=== PATIENT | female | born 1935 | race Caucasian/White ===

== ENCOUNTER 2016-06-13 12:56 | Inpatient (IN) ==
[2016-06-13] MEDS ORDERED: 0.9 % Sodium Chloride 1,000 ML IVC ONE (13:24)
--- NOTE | 2016-06-13 13:29 | Emergency Department Note ---
Disposition Clinical Impression: Weakness Leg weakness Qualifiers: Laterality: left Qualified Code(s): M62.81 - Muscle weakness (generalized) CVA (cerebral vascular accident) Qualifiers: CVA mechanism: unspecified Qualified Code(s): I63.9 - Cerebral infarction, unspecified Disposition: Admitted As Inpatient General Adult HPI - General Chief complaint: ED Headache Stated complaint: headache Time Seen by Provider: 06/13/16 12:57 Source: patient, family, EMS Mode of arrival: EMS Limitations: no limitations Nursing Notes Reviewed: Yes Vital Signs Reviewed: Yes - History of Present Illness HPI Narrative: 81-year-old female history of CHF, hypertension, hyperlipidemia presents for evaluation of headache. Patient presents for care of the family. Family states the patient was recently seen and had a diagnosis of a TIA. Family was not aware of any deficits that occurred from the prior TIA. States that the patient has been having worsening weakness in the bilateral lower extremities with left worse than right. Since the patient has not had any recent falls.The patient has been leaning more towards the right. Family denies any slurred speech or dysarthria. Does note a right facial droop. Patient's family became concerned this morning when patient started to complain of a headache 2 hours prior to arrival. Patient currently denies headache. Family also notes that the patient has had chronic problems with her eyes but currently denies any diplopia. No nausea or vomiting. No fevers. Family states that the patient has not taken taking her medications as directed. Pain Scale: 3 - Related Data Home Medications Medication Instructions Recorded Confirmed Calcium/Magnesium/Vit D3 [Calcium 1 tab PO DAILY 02/02/16 06/13/16 500 mg Tablet] Cholecalciferol (D-3) [Vitamin D] 1,000 unit PO DAILY 02/02/16 06/13/16 Ezetimibe [Zetia] 10 mg PO DAILY 02/02/16 06/13/16 Furosemide [Lasix] 40 mg PO BID 02/02/16 06/13/16 Levothyroxine [Synthroid] 50 mcg PO DAILY 02/02/16 06/13/16 Nitroglycerin [Nitrostat] 0.4 mg SL Q5M PRN 02/02/16 06/13/16 Potassium Chloride [K-Tab ER] 10 meq PO BID 02/02/16 06/13/16 Acetaminophen [Tylenol] 325 mg PO BID PRN 06/13/16 06/13/16 Amlodipine [Norvasc] 5 mg PO DAILY 06/13/16 06/13/16 Ibuprofen [Advil] 200 mg PO BID PRN 06/13/16 06/13/16 Allergies Allergy/AdvReac Type Severity Reaction Status Date / Time atorvastatin [From Lipitor] AdvReac Vomiting Verified 03/18/16 03:11 codeine AdvReac Vomiting Verified 03/18/16 03:11 haloperidol [From Haldol] AdvReac Hallucinati Verified 06/13/16 16:48 ng indomethacin AdvReac Gastrointestinal Verified 03/18/16 03:11 Upset lisinopril [From Prinivil] AdvReac Dizziness Verified 03/18/16 03:11 simvastatin [From Zocor] AdvReac Vomiting Verified 03/18/16 03:11 tramadol AdvReac See Verified 03/18/16 03:11 Comments All systems ED: reviewed and negative except as stated. Constitutional: Reports: as per HPI. Denies: fever Eyes: Reports: as per HPI ENT ED: Reports: as per HPI Cardiovascular: Reports: as per HPI. Denies: chest pain, palpitations Respiratory: Reports: as per HPI. Denies: cough Gastrointestinal: Reports: as per HPI. Denies: abdominal pain, nausea, vomiting Genitourinary: Reports: as per HPI Musculoskeletal: Reports: as per HPI Integumentary: Reports: as per HPI Neurological: Reports: as per HPI, headache, weakness Psychiatric: Reports: as per HPI Endocrine: Reports: as per HPI Past Medical History - Past Medical History Medical history: Reports: CHF, hyperlipidemia, hypertension, myocardial infarction, TIA Surgical history: Reports: appendectomy Psychiatric history: Reports: no psych history - Social History Smoking Status: Never smoker Smokeless Tobacco Status: No Alcohol use: Reports: none Drug use: Reports: none Physical Exam - General Limitations: no limitations, other (Patient is leaning to the right side) General appearance: alert - Head Head exam: atraumatic, normocephalic, normal inspection - Eye Eye exam: Present: normal appearance, EOMI, miosis - ENT ENT exam: normal exam, mucous membranes dry - Neck Neck exam: Present: normal inspection, trachea midline - Chest Chest inspection: Present: normal inspection, symmetric chest wall rise - Respiratory Respiratory exam: Present: other (Poor inspiratory effort). Absent: respiratory distress - Cardiovascular Cardiovascular exam: Present: regular rate, normal rhythm - Abdominal Exam Abdominal exam: Present: soft, Non-Tender - Extremities Exam Extremities exam: Present: normal inspection, tenderness, pedal edema (1+ left lower extremity swelling) - Expanded Upper Extremity Exam Shoulder exam: Present: normal inspection Arm exam: Present: normal inspection Elbow exam: Present: normal inspection Forearm/Wrist exam: Present: normal inspection Hand exam: Present: normal inspection Vascular exam: Normal: capillary refill - Expanded Lower Extremity Exam Hip/Pelvis exam: Present: normal inspection Upper leg exam: Present: normal inspection Knee exam: Present: normal inspection Lower leg exam: Present: normal inspection, tenderness Ankle exam: Present: normal inspection, tenderness, swelling (Left leg and swelling). Absent: ecchymosis, deformity, crepitus Neurovascular/Tendon exam: Present: normal capillary refill - Neurological Exam Neurological exam: Present: alert, oriented X3, CN II-XII intact - Expanded Neurological Exam Patient oriented to: Present: person, place, time Speech: Present: fluid speech Cranial nerves: EOM function (II, III, IV, ): Normal, facial sensation (V): Abnormal Left, facial palsy (VII): Normal, spinal accessory function (XI): Normal, tongue deviation (XII): Normal Cerebellar function: finger to nose: Normal Motor strength - LUE: 3/5 Motor strength - RUE: 4/5 Motor strength - LLE: 5/5 Motor strength - RLE: 5/5 Coma Scale Eye Opening: Spontaneous Coma Scale Motor Response: Obeys Commands Coma Scale Verbal Response: Oriented Coma Scale Total: 15 - Skin Skin exam: Present: warm, dry, intact, normal color Course Course Narrative: Patient seen and examined. Patient is in no acute distress. Patient denies need for any pain medication. States her headache has resolved. Patient does have a history of recent TIA. Patient legs due to be somewhat asymmetric and strength. Family states that the patient had a recent Doppler of the left leg performed due to swelling which was read as negative. Patient will get CT of the head, chest x-ray, EKG, labs urine and reevaluation. Patient does have drift of the left leg and would have an NIH score of 8. - Reevaluation(s) Reevaluation #1: Patient seen and examined. Updated family as well as patient on plan of care. Family reports that the patient has been relatively functional until the past couple days. Patient does live at home with assistance from family. Patient was able to ambulate with the assistance of a walker up until recently. No recent falls. Patient states she cannot walk currently. Past history was reviewed. Patient did have a venous Doppler of the left leg obtained on June 07 which was read as unremarkable with no signs of DVT. Time: 15:59 Vital Signs Temperature 98.2 F 06/13/16 12:58 Pulse Rate 68 06/13/16 12:58 Respiratory Rate 18 06/13/16 12:58 Blood Pressure 155/65 06/13/16 12:58 O2 Sat by Pulse Oximetry 99 06/13/16 12:58 Temperature 98.2 F 06/13/16 18:15 Pulse Rate 54 06/13/16 17:13 Respiratory Rate 18 06/13/16 18:15 Blood Pressure 139/52 06/13/16 18:15 O2 Sat by Pulse Oximetry 97 06/13/16 17:13 Oxygen Delivery Oxygen Delivery Room Air Medical Decision Making - MDM Narrative Medical decision making narrative: 81-year-old female presents for evaluation of bilateral lower weakness with left worse than right. Patient was relatively functional up until a couple days ago. Patient again daily with assistance of a walker. Daughter at bedside denies any recent falls. Daughter does note that patient has had some leaning to the right side as well as worsening leg weakness. Daughter states that the patient does have a history of TIA. Patient's workup does not reveal any acute evidence with CT of the head. Patient's lab work unremarkable. Patient's urine also shows no signs of infection. Daughter is concerned the patient cannot care for herself. Patient possibly had a CVA with without a defined last known well. Patient was given Tylenol as well as aspirin. Patient will be admitted to the hospitalist service for further evaluation. It is difficult to elucidate whether the patient's lower leg weakness is related to musculoskeletal or central pathology. Patient's NIH score 8 with left lower leg drifting to the bed AND right sided facial sensation decreased and tracking with eye. Patient would likely benefit from neurologic evaluation. - Lab Data Lab results reviewed: Yes I reviewed the patient's lab results. Result diagrams: 06/13/16 14:11 06/13/16 14:11 Lab Results 06/13/16 06/13/16 06/13/16 Range/Units 13:01 14:11 14:11 WBC 10.2 (4.3-11.1) K/mcL RBC 4.40 (3.82-4.97) M/mcL Hgb 12.0 (11.5-15.4) g/dL Hct 36.8 (35.3-44.9) % MCV 83.6 (83.0-100.0) fL MCH 27.3 L (28.0-33.3) pg MCHC 32.6 (31.6-35.5) g/dL RDW 14.9 H (11.5-14.5) % Plt Count 320 (140-400) K/mcL MPV 10.2 (9.4-12.4) fL Immature Gran % 0.3 (0-4) % Seg Neutrophils % 56.9 % Lymphocytes % 30.3 % Monocytes % 10.6 % Eosinophils % 1.2 % Basophils % 0.7 % Neutrophils # 5.8 (1.6-8.9) K/mcL Lymphocytes # 3.1 (0.6-4.6) K/mcL Monocytes # 1.1 (0.0-1.3) K/mcL Eosinophils # 0.1 (0.0-0.6) K/mcL Basophils # 0.1 (0.0-0.2) K/mcL Sodium 140 (136-145) mEq/L Potassium 3.5 (3.5-4.5) mEq/L Chloride 110 H (98-109) mEq/L Carbon Dioxide 22 (19-29) mEq/L BUN 13 (7-20) mg/dL Creatinine 0.70 (0.57-1.11) mg/dL Est GFR ( Amer) > 60 (> 60) Est GFR (Non-Af Amer) > 60 (> 60) BUN/Creatinine Ratio 19 (6-26) Glucose 196 H (70-99) mg/dL POC Glucose 191 H (58-89) Calculated Osmolality 296 (280-300) Calcium 9.7 (8.6-10.8) mg/dL Total Bilirubin 0.4 (0.2-1.2) mg/dL AST 9 (5-34) Units/L ALT 8 (0-55) Units/L Alkaline Phosphatase 107 (38-126) Units/L Troponin I (0-0.03) ng/mL Serum Total Protein 6.6 (6.0-8.3) g/dL Albumin 3.0 L (3.5-5.0) g/dL Globulin 3.6 H (2.4-3.5) g/dL Albumin/Globulin Ratio 0.8 L (1.1-2.2) Urine Color (Yellow) Urine Clarity (Clear) Urine pH (5.0-8.0) pH Units Ur Specific [place] (1.010-1.025) Urine Protein (Neg-Trace) mg/dL Urine Glucose (UA) (Normal) mg/dL Urine Ketones (Negative) mg/dL Urine Blood (Negative) Urine Nitrite (Negative) Urine Bilirubin (Negative) Urine Urobilinogen (Normal) mg/dL Ur Leukocyte Esterase (Negative) Urine Microscopic RBC (0-3) per hpf Urine Microscopic WBC (0-3) per hpf Ur Squamous Epith Cells (None-Few) per lpf Calcium Oxalate Crystal Urine Bacteria (None-Few) per hpf Hyaline Casts (None-Few) per lpf Ur Culture Indicated? (NO) 06/13/16 06/13/16 Range/Units 14:11 15:16 WBC (4.3-11.1) K/mcL RBC (3.82-4.97) M/mcL Hgb (11.5-15.4) g/dL Hct (35.3-44.9) % MCV (83.0-100.0) fL MCH (28.0-33.3) pg MCHC (31.6-35.5) g/dL RDW (11.5-14.5) % Plt Count (140-400) K/mcL MPV (9.4-12.4) fL Immature Gran % (0-4) % Seg Neutrophils % % Lymphocytes % % Monocytes % % Eosinophils % % Basophils % % Neutrophils # (1.6-8.9) K/mcL Lymphocytes # (0.6-4.6) K/mcL Monocytes # (0.0-1.3) K/mcL Eosinophils # (0.0-0.6) K/mcL Basophils # (0.0-0.2) K/mcL Sodium (136-145) mEq/L Potassium (3.5-4.5) mEq/L Chloride (98-109) mEq/L Carbon Dioxide (19-29) mEq/L BUN (7-20) mg/dL Creatinine (0.57-1.11) mg/dL Est GFR ( Amer) (> 60) Est GFR (Non-Af Amer) (> 60) BUN/Creatinine Ratio (6-26) Glucose (70-99) mg/dL POC Glucose (58-89) Calculated Osmolality (280-300) Calcium (8.6-10.8) mg/dL Total Bilirubin (0.2-1.2) mg/dL AST (5-34) Units/L ALT (0-55) Units/L Alkaline Phosphatase (38-126) Units/L Troponin I 0.01 (0-0.03) ng/mL Serum Total Protein (6.0-8.3) g/dL Albumin (3.5-5.0) g/dL Globulin (2.4-3.5) g/dL Albumin/Globulin Ratio (1.1-2.2) Urine Color Yellow (Yellow) Urine Clarity Clear (Clear) Urine pH 6.0 (5.0-8.0) pH Units Ur Specific [place] 1.024 (1.010-1.025) Urine Protein Negative (Neg-Trace) mg/dL Urine Glucose (UA) Normal (Normal) mg/dL Urine Ketones Negative (Negative) mg/dL Urine Blood Negative (Negative) Urine Nitrite Negative (Negative) Urine Bilirubin Small H (Negative) Urine Urobilinogen Normal (Normal) mg/dL Ur Leukocyte Esterase Moderate H (Negative) Urine Microscopic RBC 0-3 (0-3) per hpf Urine Microscopic WBC 5-15 H (0-3) per hpf Ur Squamous Epith Cells Many H (None-Few) per lpf Calcium Oxalate Crystal Present Urine Bacteria Few (None-Few) per hpf Hyaline Casts None Seen (None-Few) per lpf Ur Culture Indicated? YES A (NO) - Radiology Data Radiology results reviewed: Yes I reviewed the patient's radiology results. Chest X-Ray 06/13/16 13:24 IMPRESSION: No acute process. D/ / Amador Tillman MD / Amador Tillman MD Interpreting Provider: Amador Tillman MD Head CT 06/13/16 13:25 IMPRESSION: No acute intracranial abnormality. D/ / Tuan Gilbert MD / Tuan Gilbert MD Interpreting Provider: Tuan Gilbert MD - EKG Data EKG #1 EKG shows normal: sinus rhythm Rate: normal Rhythm: NSR [place]/QRS: normal Interpretation: no acute changes, unchanged when compared to prior tracing (date ) (05/27/16), nonspecific ST-T wave changes S.B.A.R. - S.B.A.R. Situation: Demographics, MOA Background: Presenting Complaint Assessment: Vital Signs, Course and respsone to treatment, Patient/Family Expectation, Pertinant Lab Results Recommendation: Barrier(s) to disposition, Recommendation based on pending studies, treatments, or consults S.B.A.R. Report Given to: Dr. Rodarte [email or web address] Repor Time: 16:46
[2016-06-13 14:22] LABS: Basophils # 0.1 K/mcL (0.0-0.2); Basophils % 0.7 %; Eosinophils # 0.1 K/mcL (0.0-0.6); Eosinophils % 1.2 %; Hematocrit 36.8 % (35.3-44.9); Immature Granulocytes % 0.3 % (0-4); Lymphocytes # 3.1 K/mcL (0.6-4.6); Lymphocytes % 30.3 %; Mean Corpuscular HGB Conc 32.6 g/dL (31.6-35.5); Mean Corpuscular Hemoglobin 27.3 pg (28.0-33.3); Mean Corpuscular Volume 83.6 fL (83.0-100.0); Mean Platelet Volume 10.2 fL (9.4-12.4); Monocytes # 1.1 K/mcL (0.0-1.3); Monocytes % 10.6 %; Neutrophils # 5.8 K/mcL (1.6-8.9); Platelet Count 320 K/mcL (140-400); Red Cell Distribution Width 14.9 % (11.5-14.5); Segmented Neutrophils % 56.9 %
[2016-06-13 14:30] LABS: Alanine Aminotransferase 8 Units/L (0-55); Albumin/Globulin Ratio 0.8 (1.1-2.2); Alkaline Phosphatase 107 Units/L (38-126); Aspartate Amino Transferase 9 Units/L (5-34); BUN/Creatinine Ratio 19 (6-26); Bilirubin,Total 0.4 mg/dL (0.2-1.2); Blood Urea Nitrogen 13 mg/dL (7-20); Calcium 9.7 mg/dL (8.6-10.8); Carbon Dioxide 22 mEq/L (19-29); Chloride 110 mEq/L (98-109); Globulin 3.6 g/dL (2.4-3.5); Glucose 196 mg/dL (70-99); Osmolality,Calculated 296 (280-300); Potassium 3.5 mEq/L (3.5-4.5); Sodium 140 mEq/L (136-145); Total Protein 6.6 g/dL (6.0-8.3); eGFR For African Americans > 60 (> 60); eGFR For Non-African Americans > 60 (> 60)
[2016-06-13] MEDS ORDERED: Acetaminophen 325 MG TABLET PO ONE (15:15)
[2016-06-13 15:27] LABS: Bilirubin,Urine Small (Negative); Blood,Urine Negative (Negative); Clarity,Urine Clear (Clear); Color,Urine Yellow (Yellow); Glucose,Urine (UA) Normal (Normal); Ketones,Urine Negative (Negative); Leukocyte Esterase,Urine Moderate (Negative); Nitrite,Urine Negative (Negative); Protein,Urine Negative (Neg-Trace); Specific Gravity,Urine 1.024 (1.010-1.025); Urobilinogen,Urine Normal (Normal)
[2016-06-13 15:28] LABS: Bacteria,Urine Few per hpf (None-Few); Hyaline Casts,Urine None Seen per lpf (None-Few); RBC,Urine 0-3 per hpf (0-3); Squamous Epithelial Cell,Urine Many per lpf (None-Few)
[2016-06-13 16:00] LABS: Calcium Oxalate Crystals,Urine Present
[2016-06-13] MEDS ORDERED: Aspirin 325 MG TABLET PO ONE (16:42)
--- NOTE | 2016-06-13 18:47 | Emergency Department Note ---
Disposition Clinical Impression: Weakness Leg weakness Qualifiers: Laterality: left Qualified Code(s): M62.81 - Muscle weakness (generalized) CVA (cerebral vascular accident) Qualifiers: CVA mechanism: unspecified Qualified Code(s): I63.9 - Cerebral infarction, unspecified Disposition: Admitted As Inpatient General Adult HPI - General Chief complaint: ED Headache Stated complaint: headache Time Seen by Provider: 06/13/16 12:57 Source: patient, family, EMS Mode of arrival: EMS Limitations: no limitations, other (Patient is leaning to the right side) - History of Present Illness Pain Scale: 3 - Related Data Home Medications Medication Instructions Recorded Confirmed Calcium/Magnesium/Vit D3 [Calcium 1 tab PO DAILY 02/02/16 06/13/16 500 mg Tablet] Cholecalciferol (D-3) [Vitamin D] 1,000 unit PO DAILY 02/02/16 06/13/16 Ezetimibe [Zetia] 10 mg PO DAILY 02/02/16 06/13/16 Furosemide [Lasix] 40 mg PO BID 02/02/16 06/13/16 Levothyroxine [Synthroid] 50 mcg PO DAILY 02/02/16 06/13/16 Nitroglycerin [Nitrostat] 0.4 mg SL Q5M PRN 02/02/16 06/13/16 Potassium Chloride [K-Tab ER] 10 meq PO BID 02/02/16 06/13/16 Acetaminophen [Tylenol] 325 mg PO BID PRN 06/13/16 06/13/16 Amlodipine [Norvasc] 5 mg PO DAILY 06/13/16 06/13/16 Ibuprofen [Advil] 200 mg PO BID PRN 06/13/16 06/13/16 Allergies Allergy/AdvReac Type Severity Reaction Status Date / Time atorvastatin [From Lipitor] AdvReac Vomiting Verified 03/18/16 03:11 codeine AdvReac Vomiting Verified 03/18/16 03:11 haloperidol [From Haldol] AdvReac Hallucinati Verified 06/13/16 16:48 ng indomethacin AdvReac Gastrointestinal Verified 03/18/16 03:11 Upset lisinopril [From Prinivil] AdvReac Dizziness Verified 03/18/16 03:11 simvastatin [From Zocor] AdvReac Vomiting Verified 03/18/16 03:11 tramadol AdvReac See Verified 03/18/16 03:11 Comments Constitutional: Reports: as per HPI. Denies: fever Eyes: Reports: as per HPI ENT ED: Reports: as per HPI Cardiovascular: Reports: as per HPI. Denies: chest pain, palpitations Respiratory: Reports: as per HPI. Denies: cough Gastrointestinal: Reports: as per HPI. Denies: abdominal pain, nausea, vomiting Genitourinary: Reports: as per HPI Musculoskeletal: Reports: as per HPI Integumentary: Reports: as per HPI Neurological: Reports: as per HPI, headache, weakness Psychiatric: Reports: as per HPI Endocrine: Reports: as per HPI Past Medical History - Past Medical History Medical history: Reports: CHF, hyperlipidemia, hypertension, myocardial infarction, TIA Surgical history: Reports: appendectomy Psychiatric history: Reports: no psych history - Social History Smoking Status: Never smoker Smokeless Tobacco Status: No Alcohol use: Reports: none Drug use: Reports: none Physical Exam - General Limitations: no limitations, other (Patient is leaning to the right side) General appearance: alert Course - Reevaluation(s) Reevaluation #1: I saw the patient with the resident, Dr. Brambila. Patient was brought in because she is weak at home and unable to ambulate. In talking to her daughter who lives out of town but has been back and forth visiting this patient. She says last week the patient was able to walk up a ramp at the doctor's office without any problem. This daughter came back 2 days ago and found the patient unable to get up and ambulate at all even in her own house. I find the patient to be a little bit confused. Workup was not indicating a clear etiology but the patient is not able to ambulate at home and therefore is not safe for discharge. We will admit her to the hospital for further evaluation. Time: 18:43 Vital Signs Temperature 98.2 F 06/13/16 12:58 Pulse Rate 68 06/13/16 12:58 Respiratory Rate 18 06/13/16 12:58 Blood Pressure 155/65 06/13/16 12:58 O2 Sat by Pulse Oximetry 99 06/13/16 12:58 Temperature 98.2 F 06/13/16 18:15 Pulse Rate 54 06/13/16 17:13 Respiratory Rate 18 06/13/16 18:15 Blood Pressure 139/52 06/13/16 18:15 O2 Sat by Pulse Oximetry 97 06/13/16 17:13 Oxygen Delivery Oxygen Delivery Room Air Medical Decision Making - Lab Data Result diagrams: 06/13/16 14:11 06/13/16 14:11 Lab Results 06/13/16 06/13/16 06/13/16 Range/Units 13:01 14:11 14:11 WBC 10.2 (4.3-11.1) K/mcL RBC 4.40 (3.82-4.97) M/mcL Hgb 12.0 (11.5-15.4) g/dL Hct 36.8 (35.3-44.9) % MCV 83.6 (83.0-100.0) fL MCH 27.3 L (28.0-33.3) pg MCHC 32.6 (31.6-35.5) g/dL RDW 14.9 H (11.5-14.5) % Plt Count 320 (140-400) K/mcL MPV 10.2 (9.4-12.4) fL Immature Gran % 0.3 (0-4) % Seg Neutrophils % 56.9 % Lymphocytes % 30.3 % Monocytes % 10.6 % Eosinophils % 1.2 % Basophils % 0.7 % Neutrophils # 5.8 (1.6-8.9) K/mcL Lymphocytes # 3.1 (0.6-4.6) K/mcL Monocytes # 1.1 (0.0-1.3) K/mcL Eosinophils # 0.1 (0.0-0.6) K/mcL Basophils # 0.1 (0.0-0.2) K/mcL Sodium 140 (136-145) mEq/L Potassium 3.5 (3.5-4.5) mEq/L Chloride 110 H (98-109) mEq/L Carbon Dioxide 22 (19-29) mEq/L BUN 13 (7-20) mg/dL Creatinine 0.70 (0.57-1.11) mg/dL Est GFR ( Amer) > 60 (> 60) Est GFR (Non-Af Amer) > 60 (> 60) BUN/Creatinine Ratio 19 (6-26) Glucose 196 H (70-99) mg/dL POC Glucose 191 H (58-89) Calculated Osmolality 296 (280-300) Calcium 9.7 (8.6-10.8) mg/dL Total Bilirubin 0.4 (0.2-1.2) mg/dL AST 9 (5-34) Units/L ALT 8 (0-55) Units/L Alkaline Phosphatase 107 (38-126) Units/L Troponin I (0-0.03) ng/mL Serum Total Protein 6.6 (6.0-8.3) g/dL Albumin 3.0 L (3.5-5.0) g/dL Globulin 3.6 H (2.4-3.5) g/dL Albumin/Globulin Ratio 0.8 L (1.1-2.2) Urine Color (Yellow) Urine Clarity (Clear) Urine pH (5.0-8.0) pH Units Ur Specific [place] (1.010-1.025) Urine Protein (Neg-Trace) mg/dL Urine Glucose (UA) (Normal) mg/dL Urine Ketones (Negative) mg/dL Urine Blood (Negative) Urine Nitrite (Negative) Urine Bilirubin (Negative) Urine Urobilinogen (Normal) mg/dL Ur Leukocyte Esterase (Negative) Urine Microscopic RBC (0-3) per hpf Urine Microscopic WBC (0-3) per hpf Ur Squamous Epith Cells (None-Few) per lpf Calcium Oxalate Crystal Urine Bacteria (None-Few) per hpf Hyaline Casts (None-Few) per lpf Ur Culture Indicated? (NO) 06/13/16 06/13/16 Range/Units 14:11 15:16 WBC (4.3-11.1) K/mcL RBC (3.82-4.97) M/mcL Hgb (11.5-15.4) g/dL Hct (35.3-44.9) % MCV (83.0-100.0) fL MCH (28.0-33.3) pg MCHC (31.6-35.5) g/dL RDW (11.5-14.5) % Plt Count (140-400) K/mcL MPV (9.4-12.4) fL Immature Gran % (0-4) % Seg Neutrophils % % Lymphocytes % % Monocytes % % Eosinophils % % Basophils % % Neutrophils # (1.6-8.9) K/mcL Lymphocytes # (0.6-4.6) K/mcL Monocytes # (0.0-1.3) K/mcL Eosinophils # (0.0-0.6) K/mcL Basophils # (0.0-0.2) K/mcL Sodium (136-145) mEq/L Potassium (3.5-4.5) mEq/L Chloride (98-109) mEq/L Carbon Dioxide (19-29) mEq/L BUN (7-20) mg/dL Creatinine (0.57-1.11) mg/dL Est GFR ( Amer) (> 60) Est GFR (Non-Af Amer) (> 60) BUN/Creatinine Ratio (6-26) Glucose (70-99) mg/dL POC Glucose (58-89) Calculated Osmolality (280-300) Calcium (8.6-10.8) mg/dL Total Bilirubin (0.2-1.2) mg/dL AST (5-34) Units/L ALT (0-55) Units/L Alkaline Phosphatase (38-126) Units/L Troponin I 0.01 (0-0.03) ng/mL Serum Total Protein (6.0-8.3) g/dL Albumin (3.5-5.0) g/dL Globulin (2.4-3.5) g/dL Albumin/Globulin Ratio (1.1-2.2) Urine Color Yellow (Yellow) Urine Clarity Clear (Clear) Urine pH 6.0 (5.0-8.0) pH Units Ur Specific [place] 1.024 (1.010-1.025) Urine Protein Negative (Neg-Trace) mg/dL Urine Glucose (UA) Normal (Normal) mg/dL Urine Ketones Negative (Negative) mg/dL Urine Blood Negative (Negative) Urine Nitrite Negative (Negative) Urine Bilirubin Small H (Negative) Urine Urobilinogen Normal (Normal) mg/dL Ur Leukocyte Esterase Moderate H (Negative) Urine Microscopic RBC 0-3 (0-3) per hpf Urine Microscopic WBC 5-15 H (0-3) per hpf Ur Squamous Epith Cells Many H (None-Few) per lpf Calcium Oxalate Crystal Present Urine Bacteria Few (None-Few) per hpf Hyaline Casts None Seen (None-Few) per lpf Ur Culture Indicated? YES A (NO) Attestation Statement - Attestation Attestation: I, Dr. Llanes, examined this patient states to face and my medical decision- making was reviewed with Dr. Brambila, Resident Physician. I agree with the documented findings, disposition and treatment plan as described except to the extent set forth below. Please see my progress notes for details.
[2016-06-13] MEDS ORDERED: Naloxone 0.4 MG/ML INJ IVP PRN (19:43)
[2016-06-13] MEDS ORDERED: Nitroglycerin 0.4 MG TAB.SUBL SL PRN (19:47)
[2016-06-13] MEDS ORDERED: Ibuprofen 400 MG TABLET PO PRN (19:50)
[2016-06-13] MEDS ORDERED: Acetaminophen 325 MG TABLET PO PRN (19:50)
--- NOTE | 2016-06-13 20:16 | Internal Med History&Physical ---
Date of Encounter: 06/13/16 Time of Encounter: 20:05 Assessment and Plan (1) CVA (cerebral vascular accident) Current visit: Yes Status: Acute Patient with right sided facial droop and reports left sided weakness, leaning right. Unclear time of onset. Patient's daughter reports she could walk with her walker on Friday, but now needs multiple person assist to transfer to bathroom. CT head negative. Aspirin 325mg given by ED. MRI of head/brain without contrast continuous laboratory monitor, continuous pulse oximetry echocardiogram bilateral carotid duplex consult neurology speech consult, PT/OT consult, SW consult Qualifiers: CVA mechanism: unspecified Qualified Code(s): I63.9 - Cerebral infarction, unspecified (2) Weakness Current visit: Yes Status: Acute Patient with difficulty walking, leaning right. On exam has equal strength bilaterally. Recent history of left knee replacement (February). She also broke her left wrist and arm one year ago and reports weakness in that arm ever since. Concern for CVA (see above) PT/OT evaluation (3) Hypertension Current visit: No Status: Acute Continue home dose of amlodipine and lasix Qualifiers: Hypertension type: essential hypertension Qualified Code(s): I10 - Essential (primary) hypertension (4) Hyperlipidemia Current visit: Yes Status: Acute fasting lipid panel with AM labs. continue home dose zetia reports allergy to atorvastatin, but consider other statin trial Qualifiers: Hyperlipidemia type: pure hypercholesterolemia Qualified Code(s): E78.00 - Pure hypercholesterolemia, unspecified; E78.0 - Pure hypercholesterolemia (5) DVT prophylaxis Current visit: Yes Status: Acute up to chair with assistance anti-embolic stockings heparin 5,000u SQ BID Internal Medicine - H&P: HPI Chief complaint: weakness Admitted From: Home Plans for Post Hospital Care: Home History of present illness: Ms. Bee is a 81 year old female with history of htn, dementia, hypothyroid, who presented to the ED for left sided weakness and right sided facial droop noted by her daughter. Her daughter reports that last Friday, the patient was able to walk with her walker up a ramp, but when she came to see her today, the patient was unable to walk with her walker, was leaning right and had a right facial droop. Unknown when onset of symptoms occurred. No alteration in speech reported by daughter. Patient denies any trouble with swallowing, drooling or dribbling. The patient was also complaining of a headache earlier today. She denies any chest pain, pressure, palpitations, SOB. She denies any fever, chills, night sweats, body aches. She denies dizziness or lightheadedness or any numbness or tingling. Her work up in the ED included a Head CT which was negative for any acute abnormality. On exam, she leans to the right in bed, has a right facial droop and difficulty with eye tracking. She is able to stick out her tongue and puff out her cheeks and denies any trouble with swallowing, eating or drinking. Her daughter also states she has not noticed the patient coughing or having any trouble with eating or drinking. Past Med Surg Social Fam HX - Past Medical History Medical history: CHF, dementia, hyperlipidemia, hypertension, myocardial infarction, thyroid disease, TIA Psychiatric history: no psych history - Past Surgical History Surgical History: appendectomy, knee replacement (left) - Social History Smoking Status: Never smoker Smokeless Tobacco Status: No Alcohol use: none Drug use: none - Family History Mother Hx Family Cardiac Disorders: Yes Internal Medicine - H&P: Meds Calcium/Magnesium/Vit D3 [Calcium 500 mg Tablet] 1 tab PO DAILY 02/02/16 [ History] Cholecalciferol (D-3) [Vitamin D] 1,000 unit PO DAILY 02/02/16 [History] Ezetimibe [Zetia] 10 mg PO DAILY 02/02/16 [History] Furosemide [Lasix] 40 mg PO BID 02/02/16 [History] Levothyroxine [Synthroid] 50 mcg PO DAILY 02/02/16 [History] Nitroglycerin [Nitrostat] 0.4 mg SL Q5M PRN 02/02/16 [History] Potassium Chloride [K-Tab ER] 10 meq PO BID 02/02/16 [History] Acetaminophen [Tylenol] 325 mg PO BID PRN 06/13/16 [History] Amlodipine [Norvasc] 5 mg PO DAILY 06/13/16 [History] Ibuprofen [Advil] 200 mg PO BID PRN 06/13/16 [History] Allergies atorvastatin [From Lipitor] Adverse Reaction (Verified 03/18/16 03:11) Vomiting codeine Adverse Reaction (Verified 03/18/16 03:11) Vomiting haloperidol [From Haldol] Adverse Reaction (Verified 06/13/16 16:48) Hallucinating indomethacin Adverse Reaction (Verified 03/18/16 03:11) Gastrointestinal Upset lisinopril [From Prinivil] Adverse Reaction (Verified 03/18/16 03:11) Dizziness simvastatin [From Zocor] Adverse Reaction (Verified 03/18/16 03:11) Vomiting tramadol Adverse Reaction (Verified 03/18/16 03:11) See Comments UNKNOWN PER DAUGHTER All Systems PM: A 10-system review of systems was performed and is negative for pertinent findings except as documented above in the HPI. - Constitutional Constitutional: no chills, no fever(s), no night sweats - EENT Eyes: blurry vision (not new), no change in vision, no discharge, no pain, no photophobia Ears: no ear discharge, no ear pain, no tinnitus Nose, mouth and throat: no dysphagia, no nasal discharge, no neck pain, no sore throat - Cardiovascular Cardiovascular ROS IM: no chest pain, no diaphoresis, no dyspnea, no lightheadedness, no palpitations, no syncope - Respiratory Respiratory: no cough, no dyspnea, no wheezing, no excessive phlegm production - Gastrointestinal Gastrointestinal: no abdominal pain, no diarrhea, no hematemesis, no hematochezia, no melena, no nausea, no vomiting - Musculoskeletal Musculoskeletal ROS IM: joint swelling (left ankle and knee), no numbness, no tingling - Neurological Neurological ROS: focal weakness (left side), tremor(s) (chronic), weakness, no confusion, no convulsions, no numbness, no tingling - Constitutional Vitals: Temp Pulse Resp BP Pulse Ox 97.9 F 57 15 148/76 95 06/13/16 20:02 06/13/16 20:02 06/13/16 20:02 06/13/16 20:02 06/13/16 20:02 General appearance: Present: A&O X 3, no acute distress - Head Head exam: Present: atraumatic, normocephalic - Eye Eye exam: Present: PERRL, conjuntiva pink, sclera anicteric - Neck Neck exam general surgery: Present: supple, trachea midline. Absent: lymphadenopathy - Respiratory Respiratory exam: Present: CTAB. Absent: accessory muscle use, rales, rhonchi, wheezes - Cardiovascular Cardiovascular exam: Present: RRR, +S1, +S2. Absent: diastolic murmur, gallop, rubs, systolic murmur - GI/Abdominal GI/Abdominal exam: Present: normal bowel sounds, soft, no peritoneal signs. Absent: distended, tenderness - Extremities Exam Extremities exam: Present: joint swelling (left ankle and left knee), pedal edema (left greater than right), warm, radial pulses palpable and symetrical. Absent: calf tenderness, cyanotic - Neurological Exam Neurological exam: Present: alert, CN II-XII intact, oriented X3, facial droop. Absent: pronater drift, speech deficit - Expanded Neurological Exam Cranial Nerves: EOM's intact PM: Normal (trouble tracking), tongue deviation PM : Normal Upper motor neuron: pronator drift: Normal Neuro motor strength exam: LUE: 4, RUE: 4, LLE: 4, RLE: 4 - Skin Skin exam: Present: dry, intact Internal Med - H&P Results - Labs CBC & Chem 7: 06/13/16 14:11 06/13/16 14:11
[2016-06-13] MEDS: Furosemide 40 MG TABLET PO SCH (22:31)
[2016-06-14] MEDS: *HR* Heparin 5,000 UNIT/ML VIAL SQ SCH ×2 (05:34→18:02)
[2016-06-14 06:07] LABS: Basophils # 0.1 K/mcL (0.0-0.2); Basophils % 0.7 %; Eosinophils # 0.2 K/mcL (0.0-0.6); Eosinophils % 2.3 %; Hematocrit 35.3 % (35.3-44.9); Hemoglobin 11.4 g/dL (11.5-15.4); Immature Granulocytes % 0.2 % (0-4); Lymphocytes # 3.9 K/mcL (0.6-4.6); Lymphocytes % 42.9 %; Mean Corpuscular HGB Conc 32.3 g/dL (31.6-35.5); Mean Corpuscular Hemoglobin 27.1 pg (28.0-33.3); Mean Corpuscular Volume 83.8 fL (83.0-100.0); Mean Platelet Volume 10.4 fL (9.4-12.4); Monocytes % 10.5 %; Platelet Count 311 K/mcL (140-400); Red Blood Count 4.21 M/mcL (3.82-4.97); Red Cell Distribution Width 14.9 % (11.5-14.5); Segmented Neutrophils % 43.4 %
[2016-06-14 06:20] LABS: BUN/Creatinine Ratio 16 (6-26); Blood Urea Nitrogen 10 mg/dL (7-20); Calcium 9.4 mg/dL (8.6-10.8); Carbon Dioxide 24 mEq/L (19-29); Chloride 112 mEq/L (98-109); Chol/HDL Ratio 4.3 (0-4.9); Cholesterol 185 mg/dL (< 200); Glucose 136 mg/dL (70-99); HDL Cholesterol 43 mg/dL (40-59); LDL Cholesterol,Calculated 121 mg/dL (0-99); Osmolality,Calculated 295 (280-300); Potassium 3.3 mEq/L (3.5-4.5); Sodium 142 mEq/L (136-145); Triglycerides 107 mg/dL (< 150); eGFR For African Americans > 60 (> 60); eGFR For Non-African Americans > 60 (> 60)
[2016-06-14] MEDS: Furosemide 40 MG TABLET PO SCH (08:29)
[2016-06-14] MEDS: Aspirin 325 MG TABLET PO SCH (08:30)
[2016-06-14] MEDS: amLODIPine 5 MG TABLET PO SCH (08:31)
[2016-06-14] MEDS: CALCIUM PO SCH (08:37)
[2016-06-14] MEDS: (Ezetimibe [Zetia] 10 MG) PO SCH (08:37)
[2016-06-14] MEDS: VIT D3 PO SCH (08:37)
[2016-06-14] MEDS: MAGNESIUM PO SCH (08:37)
--- NOTE | 2016-06-14 08:58 | Neurology - Consult Note ---
Date of Encounter: 06/14/16 Time of Encounter: 08:55 Assessment and Plan (1) Weakness Current Visit: Yes Status: Acute Symptoms rapidly improved and her symptoms do not appear to be consistent with new CVA and negative MRI of brain confirmed absence of acute intracranial abnormality. Symptoms of weakness is likely generalized with some focality due to previous orthopedic conditions. This could certainly be complicated by medical conditions at this age group. Please continue medical and supportive care and neurologically, no other testing will be recommended. Will sign off at this time. Please call if any questions History of Present Illness Chief complaint: left sided weakess and inability to walk HPI: Ms. Bee is a 81 year old female with PMH significant for left radial fracture, remote history of right hip fracture and s/p left knee surgery who developed increasing weakness, difficulty walking and left sided weakness. Patient interviewed in the presence of her daughter. Daughter states that the patient usually able to walk with a walker. On last Friday, however, daughter noticed that the patient was weakness and tend to lean toward the right side when trying to walk. The weakness and difficulty walking gradually worsened over the last few days. Daughter says that it required few people to hold her up and the patient admits weakness to the left arm and leg. Patient did have left knee surgery, remote right hip surgery and left arm surgery due to fracture. She was examined in the ER yesterday and initial CT of head was negative for acute changes. Today, daughter says that her mother is doing much better and the left sided weakness appears resolved Past Med Surg Social Fam HX - Past Medical History Medical history: CHF, dementia, hyperlipidemia, hypertension, myocardial infarction, thyroid disease, TIA Psychiatric history: no psych history - Past Surgical History Surgical History: appendectomy, knee replacement - Social History Smoking Status: Never smoker Smokeless Tobacco Status: No Alcohol use: none Drug use: none - Family History Mother Age at : 67 Hx Family Cardiac Disorders: Yes (HTN, RI, HLD) Hx Family Respiratory Disorders: Yes Hx Family Cancer: No Hx Family GI Disorders: No Hx Family Genitourinary Disorders: No Hx Family Endocrine Disorder: No Hx Family Musculoskeletal Disorders: No Hx Family Neuromuscular Disorders: No Hx Family Neurologic Disorders: No Hx Family HEENT Disorders: No Hx Family Autoimmune Disorders: No Hx Family Reproductive Disorders: No Hx Family Psychosocial Disorders: No Hx Family Medical Disorders: No Medications and Allergies Calcium/Magnesium/Vit D3 [Calcium 500 mg Tablet] 1 tab PO DAILY 02/02/16 [ History] Cholecalciferol (D-3) [Vitamin D] 1,000 unit PO DAILY 02/02/16 [History] Ezetimibe [Zetia] 10 mg PO DAILY 02/02/16 [History] Furosemide [Lasix] 40 mg PO BID 02/02/16 [History] Levothyroxine [Synthroid] 50 mcg PO DAILY 02/02/16 [History] Nitroglycerin [Nitrostat] 0.4 mg SL Q5M PRN 02/02/16 [History] Potassium Chloride [K-Tab ER] 10 meq PO BID 02/02/16 [History] Acetaminophen [Tylenol] 325 mg PO BID PRN 06/13/16 [History] Amlodipine [Norvasc] 5 mg PO DAILY 06/13/16 [History] Ibuprofen [Advil] 200 mg PO BID PRN 06/13/16 [History] Allergies atorvastatin [From Lipitor] Adverse Reaction (Verified 03/18/16 03:11) Vomiting codeine Adverse Reaction (Verified 03/18/16 03:11) Vomiting haloperidol [From Haldol] Adverse Reaction (Verified 06/13/16 16:48) Hallucinating indomethacin Adverse Reaction (Verified 03/18/16 03:11) Gastrointestinal Upset lisinopril [From Prinivil] Adverse Reaction (Verified 03/18/16 03:11) Dizziness simvastatin [From Zocor] Adverse Reaction (Verified 03/18/16 03:11) Vomiting tramadol Adverse Reaction (Verified 03/18/16 03:11) See Comments UNKNOWN PER DAUGHTER All Systems: A 10-system review of systems was performed and is negative for pertinent findings except as documented above in the HPI. Physical Examination - Vital Signs Vital Signs: Initial Vital Signs Temp Pulse Resp BP Pulse Ox 98.2 F 68 18 155/65 99 06/13/16 12:58 06/13/16 12:58 06/13/16 12:58 06/13/16 12:58 06/13/16 12:58 - Constitutional General appearance: comfortable - Neurologic Sensorimotor examination: other (Grossly intact) Detailed motor examination: other (Moves all extremities. Able to lift both legs off the bed and hand chief nursing executive are equal) Reflexes: Biceps: 1+, Triceps: 1+, Brachioradialis: 1+, Patella: 1+, Achilles: 1 + Mental Status Examination: awake, alert, oriented to person, oriented to place, oriented to time, follows commands appropriately, answers questions appropriately, no agnosia, no aphasia, no aproxia Cranial nerve examination: PERRL, EOMI, visual bhagat intact, corneal reflexes brisk symmetrically, sensory to face intact, mastication intact, no facial asymmetry is present, no dysarthria, hearing is intact symmetrically, soft palate elevates bilaterally upon phonation, gag reflex intact, flexes SCM and trapezius muscles symmetrically with full power, tongue protrudes midline, no atrophy or facial fasiculations present Results - Laboratory Findings CBC and BMP: 06/14/16 05:07 06/14/16 05:07 Abnormal lab findings: Abnormal lab results Hgb 11.4 g/dL (11.5-15.4) L 06/14/16 05:07 MCH 27.1 pg (28.0-33.3) L 06/14/16 05:07 RDW 14.9 % (11.5-14.5) H 06/14/16 05:07 Potassium 3.3 mEq/L (3.5-4.5) L 06/14/16 05:07 Chloride 112 mEq/L (98-109) H 06/14/16 05:07 Glucose 136 mg/dL (70-99) H 06/14/16 05:07 POC Glucose 191 (58-89) H 06/13/16 13:01 Albumin 3.0 g/dL (3.5-5.0) L 06/13/16 14:11 Globulin 3.6 g/dL (2.4-3.5) H 06/13/16 14:11 Albumin/Globulin Ratio 0.8 (1.1-2.2) L 06/13/16 14:11 LDL Cholesterol, Calc 121 mg/dL (0-99) H 06/14/16 05:07 Urine Bilirubin Small (Negative) H 06/13/16 15:16 Ur Leukocyte Esterase Moderate (Negative) H 06/13/16 15:16 Urine Microscopic WBC 5-15 per hpf (0-3) H 06/13/16 15:16 Ur Squamous Epith Cells Many per lpf (None-Few) H 06/13/16 15:16 Ur Culture Indicated? YES (NO) A 06/13/16 15:16 Consult Discharge Plan - Plan Referrals: NO,PCP [Primary Care Provider] -
[2016-06-14] MEDS ORDERED: Cholecalciferol (D-3) 1,000 UNIT TABLET PO SCH (09:00)
--- NOTE | 2016-06-14 11:28 | Electrocardiograph Report ---
[facility] Test Date: 2016-06-13 Pat Name: Cassy Bee Department: 104 Room: 3B54 Gender: F Junior Designer: : 1935 Requested By: Nehemiah Brambila Order Number: [id number] Reading MD: Morris Navarrete Measurements Intervals [place] Rate: 68 P: 91 VT: 158 QRS: 18 QRSD: 85 T: 89 QT: 367 QTc: 385 Interpretive Statements SINUS RHYTHM NONSPECIFIC T-WAVE ABNORMALITY Electronically Signed On 06-14-16 11:27:00 EST by Morris Navarrete
--- NOTE | 2016-06-14 16:54 | Carotid Imaging Report ---
Carotid Duplex Patient Name:Cassy Bee Order Number:[id number] Procedure Date:06/14/2016 Date:1935ge:81 yrs Gender:Female Lt BP:149 / 79 mmHg Rt.BP:149 / 79 mmHgHeart Rate: Location:[facility] Room #: 3B54 Monorail Charger Operator:Nya Sage Referring MD:Dafne Joshua CNP designer architect:None Reading MD:Yayo Fuentes MD Primary Indications:Concern for CVA Risk Factors Yes/No Hypertension Yes Hypercholesterolemia Yes Hx of TIA Unknown Impressions: The right carotid artery is normal throughout. The left internal carotid artery is normal throughout. The left extrenal carotid arety is occluded. Recommendations: Risk factor reduction. Follow-up carotid duplex in 1 year. Test completed on 06/14/2016 at 2:39:00 pm. Critical findings reported to [id number] Sheth by phone at 2:39:00 pm on 06/14/2016 by Nya Sage. Findings Carotid Duplex: Left: The left eca is occluded. Prior Study: No prior study available for comparison. Carotid Results Right PSV EDV Assessment Proximal CCA 49 9 Normal Mid CCA 68 12 Normal Distal CCA 65 12 Normal Bifurcation 59 13 Normal Proximal ICA 30 8 Normal Mid ICA 82 22 Normal Distal ICA 58 18 Normal ECA 139 12 Normal Vertebral Artery 82 20 Antegrade Flow Left PSV EDV Assessment Proximal CCA 74 13 Normal Mid CCA 69 14 Normal Distal CCA 66 14 Normal Bifurcation 55 11 Normal Proximal ICA 62 14 Normal Mid ICA 94 22 Normal Distal ICA 99 23 Normal ECA 0 0 occluded Vertebral Artery 25 6 Antegrade Flow Ratio's Right ICA/CCA Ratio: 1.21 ICA/CCA Values: 82/68 Left ICA/CCA Ratio: 1.43 ICA/CCA Values: 99/69 Updated by Yayo Fuentes MD on 06/14/2016 4:47:41 PM electronically signed on 06/14/2016 4:48:04 PM with status of Final
--- NOTE | 2016-06-14 19:20 | Internal Med Progress Note ---
Date of Encounter: 06/14/16 Time of Encounter: 19:00 - Assessment and plan (1) Carotid artery stenosis Current Visit: Yes Status: Acute Assessment and plan: life style modification, continue statin Qualifiers: Laterality: left Qualified Code(s): I65.22 - Occlusion and stenosis of left carotid artery (2) Hyperlipidemia Current Visit: Yes Status: Acute Assessment and plan: allergy to atrova statin may consider other agent will discuss with family Qualifiers: Hyperlipidemia type: pure hypercholesterolemia Qualified Code(s): E78.00 - Pure hypercholesterolemia, unspecified; E78.0 - Pure hypercholesterolemia (3) Status post total knee replacement, left Current Visit: No Status: Acute Assessment and plan: add schaduled tylenol (4) Physical deconditioning Current Visit: Yes Status: Acute Assessment and plan: conselling On physical therapy. will check oh vitamin D and vitamin B12 (5) Altered awareness, transient Current Visit: Yes Status: Acute Assessment and plan: improving , possible secondary to volume depletion will decrease lasix - Time Spent With Patient 25 - 35 minutes - Subjective Interval history: Patient is complaining of weakness lower extremities ,hard to ambulate. Patient denies any chest pain or shortness of breath. Had static tremors right upper extremities - Constitutional Vitals: Temp Pulse Resp BP Pulse Ox 97.7 F 62 16 164/72 94 L 06/14/16 15:39 06/14/16 15:39 06/14/16 15:39 06/14/16 15:39 06/14/16 15:39 General appearance: Present: A&O X 3, no acute distress - Head Head exam: Present: atraumatic, normocephalic - Respiratory Respiratory exam: Present: CTAB. Absent: accessory muscle use, rales, rhonchi, wheezes - Cardiovascular Cardiovascular exam: Present: RRR, +S1, +S2. Absent: diastolic murmur, gallop, rubs, systolic murmur - GI/Abdominal GI/Abdominal exam: Present: normal bowel sounds, soft, no peritoneal signs. Absent: distended, tenderness - Neurological Exam Neurological exam: Present: CN II-XII intact, no focal deficits. Absent: motor sensory deficit, facial droop, speech deficit Additional comments: Static tremors bilateral upper extremities right more than left - Skin Skin exam: Present: dry, intact Internal Medicine: Result - Labs CBC & Chem 7: 06/14/16 05:07 06/14/16 05:07 Labs: Short CBC 06/14/16 Range/Units 05:07 WBC 9.1 (4.3-11.1) K/mcL Hgb 11.4 L (11.5-15.4) g/dL Hct 35.3 (35.3-44.9) % Plt Count 311 (140-400) K/mcL Neutrophils # 4.0 (1.6-8.9) K/mcL BMP 06/14/16 05:07 Sodium 142 Potassium 3.3 L Chloride 112 H Carbon Dioxide 24 BUN 10 Creatinine 0.64 Glucose 136 H Calcium 9.4 - Impressions Impressions Brain MRI 06/14/16 12:45 IMPRESSION: 1. No acute intracranial abnormality. Specifically, no acute infarction. 2. Diffuse age-related parenchymal volume loss and sequela of chronic microvascular ischemic changes. 3. Unremarkable MRA of the neck. 4. Focal high-grade stenosis of the A2/A3 segment of the left anterior cerebral artery. 5. Multifocal [id number] stenoses of the P2 segment of the posterior cerebral arteries probably related to intracranial atherosclerotic disease. D/ / 06/14/2016 14:42:41 Shaq Henderson MD / seng Interpreting Provider: Shaq Henderson MD Head MRA 06/14/16 12:45 IMPRESSION: 1. No acute intracranial abnormality. Specifically, no acute infarction. 2. Diffuse age-related parenchymal volume loss and sequela of chronic microvascular ischemic changes. 3. Unremarkable MRA of the neck. 4. Focal high-grade stenosis of the A2/A3 segment of the left anterior cerebral artery. 5. Multifocal [id number]-[id number] stenoses of the P2 segment of the posterior cerebral arteries probably related to intracranial atherosclerotic disease. D/ / 06/14/2016 14:42:41 Shaq Henderson MD / seng Interpreting Provider: Shaq Henderson MD Neck MRA 06/14/16 12:45 IMPRESSION: 1. No acute intracranial abnormality. Specifically, no acute infarction. 2. Diffuse age-related parenchymal volume loss and sequela of chronic microvascular ischemic changes. 3. Unremarkable MRA of the neck. 4. Focal high-grade stenosis of the A2/A3 segment of the left anterior cerebral artery. 5. Multifocal qfci-gi-hnnrrfwp stenoses of the P2 segment of the posterior cerebral arteries probably related to intracranial atherosclerotic disease. D/ / 06/14/2016 14:42:41 Shaq Henderson MD / seng Interpreting Provider: Shaq Henderson MD Consult Discharge Plan - Plan Referrals: NO,PCP [Primary Care Provider] -
[2016-06-14] MEDS: Cyanocobalamin (B-12) 1,000 MCG TABLET PO SCH (20:37)
[2016-06-14] MEDS: Thiamine (B-1) 100 MG TABLET PO SCH (20:37)
[2016-06-15] MEDS: Acetaminophen 325 MG TABLET PO SCH ×4 (00:41→23:03)
[2016-06-15] MEDS: *HR* Heparin 5,000 UNIT/ML VIAL SQ SCH ×2 (06:25→18:18)
[2016-06-15] MEDS: Cyanocobalamin (B-12) 1,000 MCG TABLET PO SCH (08:08)
[2016-06-15] MEDS: Thiamine (B-1) 100 MG TABLET PO SCH (08:08)
[2016-06-15] MEDS: Aspirin 325 MG TABLET PO SCH (08:08)
[2016-06-15] MEDS: amLODIPine 5 MG TABLET PO SCH (08:08)
[2016-06-15] MEDS: VIT D3 PO SCH (08:18)
[2016-06-15] MEDS: MAGNESIUM PO SCH (08:18)
[2016-06-15] MEDS: CALCIUM PO SCH (08:18)
[2016-06-15] MEDS: (Ezetimibe [Zetia] 10 MG) PO SCH (08:18)
[2016-06-15] MEDS ORDERED: Furosemide 40 MG TABLET PO SCH (09:00)
[2016-06-15 14:19] LABS: Magnesium 1.8 mg/dL (1.6-2.6); Phosphorous 3.2 mg/dL (2.3-4.7); Potassium 3.8 mEq/L (3.5-4.5)
--- NOTE | 2016-06-15 17:27 | Internal Med Progress Note ---
Date of Encounter: 06/15/16 Time of Encounter: 18:00 - Assessment and plan (1) Carotid artery stenosis Current Visit: Yes Status: Acute Assessment and plan: life style modification, continue statin , aspirin Qualifiers: Laterality: left Qualified Code(s): I65.22 - Occlusion and stenosis of left carotid artery (2) Hyperlipidemia Current Visit: Yes Status: Acute Assessment and plan: allergy to atrovastatin ,ass tricor Qualifiers: Hyperlipidemia type: pure hypercholesterolemia Qualified Code(s): E78.00 - Pure hypercholesterolemia, unspecified; E78.0 - Pure hypercholesterolemia (3) Status post total knee replacement, left Current Visit: No Status: Acute Assessment and plan: Schaduled tylenol. percocet PRN (4) Physical deconditioning Current Visit: Yes Status: Acute Assessment and plan: conselling On physical therapy. I tried with physical therapy team today . it was very hard for patient to be ambulated even with 2 assistant media buyer discussed with physical therapy team patient need to have rehabilitation very unsafe for patient even to stand with assistant media buyer. very unsafe for patient to be discharged home (5) Gout Current Visit: Yes Status: Acute Assessment and plan: add colchicine Qualifiers: Gout site: foot Gout etiology: idiopathic Laterality: right Chronicity : acute Qualified Code(s): M10.071 - Idiopathic gout, right ankle and foot (6) Leg weakness Current Visit: Yes Status: Acute Assessment and plan: Brain MRI no evidence of CVA continue aspirin Qualifiers: Laterality: bilateral Qualified Code(s): M62.81 - Muscle weakness ( generalized) - Time Spent With Patient Greater than 35 minutes - Subjective Interval history: Patient is complaining of weakness lower extremities ,hard to ambulate. Patient stated that she had pain in her toes bilateral lower extremities right more than left. Hard for her to ambulate because pain in addition to pain in her bilateral knees - Constitutional Vitals: Temp Pulse Resp BP Pulse Ox 97.7 F 53 14 103/53 95 06/15/16 11:22 06/15/16 11:22 06/15/16 11:22 06/15/16 11:22 06/15/16 11:22 General appearance: Present: A&O X 3, no acute distress - Respiratory Respiratory exam: Present: CTAB. Absent: accessory muscle use, rales, rhonchi, wheezes - Cardiovascular Cardiovascular exam: Present: RRR, +S1, +S2. Absent: diastolic murmur, gallop, rubs, systolic murmur - GI/Abdominal GI/Abdominal exam: Present: normal bowel sounds, soft, no peritoneal signs. Absent: distended, tenderness - Extremities Exam Extremities exam: Present: tenderness (Tenderness all foot second and third toe right feet tenderness forth toe left feet MPJ bilateral ), warm. Absent: calf tenderness, cyanotic, pedal edema - Neurological Exam Neurological exam: Present: abnormal gait, CN II-XII intact, oriented X3, no focal deficits. Absent: pronater drift, facial droop, speech deficit Additional comments: Static tremors upper extremities Internal Medicine: Result - Labs CBC & Chem 7: 06/14/16 05:07 06/15/16 13:50 - VTE Documentation of Mechanical Device: Graduated compression elastic hosiery Consult Discharge Plan - Plan Referrals: NO,PCP [Primary Care Provider] -
[2016-06-15] MEDS ORDERED: *HR* OxyCODONE/APAP 5/325 TABLET PO PRN (18:16)
[2016-06-15] MEDS: Colchicine 0.6 MG TABLET PO SCH (18:18)
[2016-06-15] MEDS: Fenofibrate 54 MG TABLET PO SCH (20:01)
[2016-06-16] MEDS: *HR* Heparin 5,000 UNIT/ML VIAL SQ SCH ×2 (05:19→17:07)
[2016-06-16] MEDS: (Ezetimibe [Zetia] 10 MG) PO SCH (09:20)
[2016-06-16] MEDS: VIT D3 PO SCH (09:20)
[2016-06-16] MEDS: CALCIUM PO SCH (09:20)
[2016-06-16] MEDS: MAGNESIUM PO SCH (09:20)
[2016-06-16] MEDS: amLODIPine 5 MG TABLET PO SCH (09:22)
[2016-06-16] MEDS: Fenofibrate 54 MG TABLET PO SCH (09:22)
[2016-06-16] MEDS: Thiamine (B-1) 100 MG TABLET PO SCH (09:22)
[2016-06-16] MEDS: Acetaminophen 325 MG TABLET PO SCH ×2 (09:22→17:05)
[2016-06-16] MEDS: Aspirin 325 MG TABLET PO SCH (09:22)
[2016-06-16] MEDS: Cyanocobalamin (B-12) 1,000 MCG TABLET PO SCH (09:23)
[2016-06-16] MEDS: Colchicine 0.6 MG TABLET PO SCH (09:23)
--- NOTE | 2016-06-16 17:29 | Internal Med Progress Note ---
Date of Encounter: 06/16/16 Time of Encounter: 05:00 - Assessment and plan (1) Carotid artery stenosis Current Visit: Yes Status: Acute Assessment and plan: life style modification, continue statin , aspirin Qualifiers: Laterality: left Qualified Code(s): I65.22 - Occlusion and stenosis of left carotid artery (2) Hyperlipidemia Current Visit: Yes Status: Acute Assessment and plan: allergy to atrovastatin ,continue tricor Qualifiers: Hyperlipidemia type: unspecified Qualified Code(s): E78.5 - Hyperlipidemia , unspecified (3) Status post total knee replacement, left Current Visit: No Status: Acute Assessment and plan: Schaduled tylenol. percocet PRN (4) Physical deconditioning Current Visit: Yes Status: Acute (5) Gout Current Visit: Yes Status: Acute Assessment and plan: Marked improvement with starting colchicine Qualifiers: Gout site: foot Gout etiology: idiopathic Laterality: right Chronicity : acute Qualified Code(s): M10.071 - Idiopathic gout, right ankle and foot (6) Leg weakness Current Visit: Yes Status: Acute Qualifiers: Laterality: bilateral Qualified Code(s): M62.81 - Muscle weakness ( generalized) - Time Spent With Patient 25 - 35 minutes (I had long discussion with patient and her daughters at bedside counseling again about physical therapy. with patient condition need rehabilitation unsafe to go home) - Subjective Interval history: Patient is complaining of weakness lower extremities ,hard to ambulate. She is trying to her feet in bed today Patient stated her pain and her toes improving still very hard to stand - Constitutional Vitals: Temp Pulse Resp BP Pulse Ox 97.4 F L 55 20 118/71 97 06/16/16 15:31 06/16/16 15:31 06/16/16 15:31 06/16/16 15:31 06/16/16 15:31 General appearance: Present: A&O X 3, no acute distress - Respiratory Respiratory exam: Present: decreased breath sounds. Absent: accessory muscle use, rales, rhonchi, wheezes - Cardiovascular Cardiovascular exam: Present: RRR, +S1, +S2. Absent: diastolic murmur, gallop, rubs, systolic murmur - GI/Abdominal GI/Abdominal exam: Present: normal bowel sounds, soft, no peritoneal signs. Absent: distended, tenderness - Extremities Exam Extremities exam: Present: warm (Mild tenderness in her toes today August much better compared to yesterday). Absent: calf tenderness, cyanotic, pedal edema Internal Medicine: Result - Labs CBC & Chem 7: 06/14/16 05:07 06/15/16 13:50 - VTE Documentation of Mechanical Device: Graduated compression elastic hosiery Consult Discharge Plan - Plan Referrals: NO,PCP [Primary Care Provider] -
[2016-06-17] MEDS: Acetaminophen 325 MG TABLET PO SCH ×4 (01:30→23:52)
[2016-06-17] MEDS: *HR* Heparin 5,000 UNIT/ML VIAL SQ SCH ×2 (06:49→18:24)
[2016-06-17] MEDS: Thiamine (B-1) 100 MG TABLET PO SCH (09:20)
[2016-06-17] MEDS: Fenofibrate 54 MG TABLET PO SCH (09:20)
[2016-06-17] MEDS: Cyanocobalamin (B-12) 1,000 MCG TABLET PO SCH (09:20)
[2016-06-17] MEDS: Colchicine 0.6 MG TABLET PO SCH (09:20)
[2016-06-17] MEDS: CALCIUM PO SCH (09:21)
[2016-06-17] MEDS: VIT D3 PO SCH (09:21)
[2016-06-17] MEDS: Aspirin 325 MG TABLET PO SCH (09:21)
[2016-06-17] MEDS: MAGNESIUM PO SCH (09:21)
[2016-06-17] MEDS: amLODIPine 5 MG TABLET PO SCH (09:21)
[2016-06-17] MEDS: (Ezetimibe [Zetia] 10 MG) PO SCH (09:21)
--- NOTE | 2016-06-17 19:38 | Internal Med Progress Note ---
Date of Encounter: 06/17/16 Time of Encounter: 18:00 - Assessment and plan (1) Carotid artery stenosis Current Visit: Yes Status: Acute Assessment and plan: life style modification, continue statin , aspirin Qualifiers: Laterality: left Qualified Code(s): I65.22 - Occlusion and stenosis of left carotid artery (2) Hyperlipidemia Current Visit: Yes Status: Acute Assessment and plan: allergy to atrovastatin ,continue tricor Qualifiers: Hyperlipidemia type: unspecified Qualified Code(s): E78.5 - Hyperlipidemia , unspecified (3) Status post total knee replacement, left Current Visit: No Status: Acute Assessment and plan: Schaduled tylenol. percocet PRN (4) Physical deconditioning Current Visit: Yes Status: Acute Assessment and plan: Discussed with daughter and patient today about the importance of safety and rehabilitation, had meeting with social security assessor discussed about discharge planning, she would have meeting with daughter and the patient and discuss about discharge planning very unsafe for patient to be discharged home. Plan to discharge next 24-hour. community mental health worker had concern also about social support at home (5) Gout Current Visit: Yes Status: Acute Assessment and plan: Marked improvement with starting colchicine. Plan to start allopurinol in 1 week Qualifiers: Gout site: foot Gout etiology: idiopathic Laterality: right Chronicity : acute Qualified Code(s): M10.071 - Idiopathic gout, right ankle and foot (6) Leg weakness Current Visit: Yes Status: Acute Assessment and plan: Brain MRI no evidence of CVA continue aspirin Qualifiers: Laterality: bilateral Qualified Code(s): M62.81 - Muscle weakness ( generalized) - Time Spent With Patient 25 - 35 minutes - Subjective Interval history: Patient is still complaining of weakness lower extremities. Ambulating better with physical therapy. She still need to assist. Marked improvement of her pain was current pain medication. - Constitutional Vitals: Temp Pulse Resp BP Pulse Ox 97.8 F 60 15 130/77 97 06/17/16 19:09 06/17/16 19:09 06/17/16 19:09 06/17/16 19:09 06/17/16 19:09 General appearance: Present: A&O X 3, no acute distress - Head Head exam: Present: atraumatic, normocephalic - Neck Neck exam general surgery: Present: supple, trachea midline. Absent: lymphadenopathy - Respiratory Respiratory exam: Present: CTAB. Absent: accessory muscle use, rales, rhonchi, wheezes - Cardiovascular Cardiovascular exam: Present: RRR, +S1, +S2. Absent: diastolic murmur, gallop, rubs, systolic murmur - GI/Abdominal GI/Abdominal exam: Present: normal bowel sounds, soft, no peritoneal signs. Absent: distended, tenderness - Neurological Exam Neurological exam: Present: CN II-XII intact, no focal deficits, strengths equal and symetr throughout. Absent: pronater drift, facial droop, speech deficit Internal Medicine: Result - Labs CBC & Chem 7: 06/14/16 05:07 06/15/16 13:50 - VTE Documentation of Mechanical Device: Graduated compression elastic hosiery Consult Discharge Plan - Plan Referrals: NO,PCP [Primary Care Provider] -
[2016-06-18] MEDS: *HR* Heparin 5,000 UNIT/ML VIAL SQ SCH (05:41)
[2016-06-18] MEDS: Colchicine 0.6 MG TABLET PO SCH (09:05)
[2016-06-18] MEDS: Thiamine (B-1) 100 MG TABLET PO SCH (09:05)
[2016-06-18] MEDS: Fenofibrate 54 MG TABLET PO SCH (09:05)
[2016-06-18] MEDS: VIT D3 PO SCH (09:06)
[2016-06-18] MEDS: MAGNESIUM PO SCH (09:06)
[2016-06-18] MEDS: (Ezetimibe [Zetia] 10 MG) PO SCH (09:06)
[2016-06-18] MEDS: Acetaminophen 325 MG TABLET PO SCH (09:06)
[2016-06-18] MEDS: Cyanocobalamin (B-12) 1,000 MCG TABLET PO SCH (09:06)
[2016-06-18] MEDS: CALCIUM PO SCH (09:06)
[2016-06-18] MEDS: Aspirin 325 MG TABLET PO SCH (09:06)
[2016-06-18] MEDS: amLODIPine 5 MG TABLET PO SCH (09:06)
[2016-06-18 11:06] VITALS: BP 115/68
--- NOTE | 2016-06-18 12:12 | Discharge Summary ---
Date of Encounter: 06/18/16 Time of Encounter: 12:00 - Discharge Diagnosis (1) Carotid artery stenosis Priority: Secondary Status: Acute Qualifiers: Laterality: left Qualified Code(s): I65.22 - Occlusion and stenosis of left carotid artery (2) Hyperlipidemia Priority: Secondary Status: Acute Qualifiers: Hyperlipidemia type: unspecified Qualified Code(s): E78.5 - Hyperlipidemia , unspecified (3) Status post total knee replacement, left Priority: Secondary Status: Acute (4) Physical deconditioning Priority: Secondary Status: Acute (5) Gout Priority: Secondary Status: Acute Qualifiers: Gout site: foot Gout etiology: idiopathic Laterality: right Chronicity : acute Qualified Code(s): M10.071 - Idiopathic gout, right ankle and foot (6) Leg weakness Priority: Primary Status: Acute Qualifiers: Laterality: bilateral Qualified Code(s): M62.81 - Muscle weakness ( generalized) - Discharge Medications Prescriptions: Acetaminophen [Tylenol] 650 mg PO Q8HR #90 tablet Allopurinol [Zyloprim] 100 mg PO DAILY #30 tablet Colchicine [Colcrys] 0.6 mg PO DAILY #30 tablet Cyanocobalamin (B-12) [Vitamin B12] 1,000 mcg PO DAILY #90 tablet Ergocalciferol (VITAMIN D2) [Drisdol (50,000 Unit)] 50,000 unit PO QWEEK #20 capsule Fenofibrate [Tricor] 54 mg PO DAILY #90 tablet Thiamine (B-1) [Vitamin B-1] 200 mg PO DAILY #180 tablet Home Medications: Calcium/Magnesium/Vit D3 [Calcium 500 mg Tablet] 1 tab PO DAILY 02/02/16 [ History] Cholecalciferol (D-3) [Vitamin D] 1,000 unit PO DAILY 02/02/16 [History] Ezetimibe [Zetia] 10 mg PO DAILY 02/02/16 [History] Levothyroxine [Synthroid] 50 mcg PO DAILY 02/02/16 [History] Nitroglycerin [Nitrostat] 0.4 mg SL Q5M PRN 02/02/16 [History] Potassium Chloride [K-Tab ER] 10 meq PO BID 02/02/16 [History] Amlodipine [Norvasc] 5 mg PO DAILY 06/13/16 [History] Ibuprofen [Advil] 200 mg PO BID PRN 06/13/16 [History] Acetaminophen [Tylenol] 650 mg PO Q8HR #90 tablet 06/18/16 [Rx] Allopurinol [Zyloprim] 100 mg PO DAILY #30 tablet 06/18/16 [Rx] Colchicine [Colcrys] 0.6 mg PO DAILY #30 tablet 06/18/16 [Rx] Cyanocobalamin (B-12) [Vitamin B12] 1,000 mcg PO DAILY #90 tablet 06/18/16 [Rx] Ergocalciferol (VITAMIN D2) [Drisdol (50,000 Unit)] 50,000 unit PO QWEEK #20 capsule 06/18/16 [Rx] Fenofibrate [Tricor] 54 mg PO DAILY #90 tablet 06/18/16 [Rx] OxyCODONE/APAP 5/325 [Percocet 5/325 MG] 1 each PO Q8HR PRN #60 tablet 06/18/16 [Rx] Thiamine (B-1) [Vitamin B-1] 200 mg PO DAILY #180 tablet 06/18/16 [Rx] Allergies/Adverse Reactions: Allergies atorvastatin [From Lipitor] Adverse Reaction (Verified 03/18/16 03:11) Vomiting codeine Adverse Reaction (Verified 03/18/16 03:11) Vomiting haloperidol [From Haldol] Adverse Reaction (Verified 06/13/16 16:48) Hallucinating indomethacin Adverse Reaction (Verified 03/18/16 03:11) Gastrointestinal Upset lisinopril [From Prinivil] Adverse Reaction (Verified 03/18/16 03:11) Dizziness simvastatin [From Zocor] Adverse Reaction (Verified 03/18/16 03:11) Vomiting tramadol Adverse Reaction (Verified 03/18/16 03:11) See Comments UNKNOWN PER DAUGHTER Date of admission: 06/15/16 14:36 Primary care physician: PCP NO Discharging clinician: Lore Curtis - Patient Status Disposition: Home Health Service Condition: Fair Functional capacity at discharge: uses cane/walker - Discharge Instructions Follow Up With: Gautam Lombardi DO [Partnered Physician] - 06/25/16 1:00 pm () uYlissa Rivera CNP [Advanced Practice Nurse] - 06/25/16 9:45 am Additional Instructions: Follow up with neurologist as an outpatient - Diet and Activity Activity: ambulate only with your walker Diet: low fat, low cholesterol Interval History: Ms. Bee is a 81 year old female with PMH significant for left radial fracture, remote history of right hip fracture and s/p left knee surgery who developed increasing weakness, difficulty walking and left sided weakness. Daughter states that the patient usually able to walk with a walker. On last Friday, however, daughter noticed that the patient had some weakness and tend to lean toward the right side when trying to walk. The weakness and difficulty walking gradually worsened over the last few days. Daughter says that it required few people to hold her up and the patient admits weakness to the left arm and leg. Patient did have left knee surgery, remote right hip surgery and left arm surgery due to fracture. She was examined in the ER yesterday and initial CT of head was negative for acute changes. MRI brain done and showed no evidence of CVA. Carotid Doppler done showed left external carotid artery occlusion. Aspirin 325 mg added, fenofibrate patient has allergy to statin. Neurology was consulted he stated Symptoms rapidly improved and her symptoms do not appear to be consistent with new CVA and negative MRI of brain confirmed absence of acute intracranial abnormality. Symptoms of weakness is likely generalized with some focality due to previous orthopedic conditions. This could certainly be complicated by medical conditions at this age group. no other testing will be recommended. With her weakness and unable to ambulate. Patient had pain in her bilateral feet uric acid was elevated, colchicine was started Pain medication was adjusted patient was able to ambulate better with physical therapy.Discussed with daughter and patient today about the importance of safety and rehabilitation, had meeting with social media manager yesterday discussed about discharge planning, she had meeting with daughter and the patient and discuss about discharge planning very unsafe for patient to be discharged home. Patient had some improvement with physical therapy. Family wanted to try for next week to take care of her at home with help of home health care. Patient is feeding much better today. Patient discharged home in stable condition Hospital course: Ms. Bee is a 81 year old female - Time Spent with Patient Total time spent providing and/or coordinating discharge services: Greater than 30 minutes - Constitutional Vitals: Temp Pulse Resp BP Pulse Ox 98.3 F 57 17 115/68 93 L 06/18/16 11:04 06/18/16 11:04 06/18/16 11:04 06/18/16 11:04 06/18/16 11:04 General appearance: Present: A&O X 3, no acute distress - Head Head exam: Present: atraumatic, normocephalic - Respiratory Respiratory exam: Present: CTAB. Absent: accessory muscle use, rales, rhonchi, wheezes - Cardiovascular Cardiovascular exam: Present: RRR, +S1, +S2. Absent: diastolic murmur, gallop, rubs, systolic murmur - GI/Abdominal GI/Abdominal exam: Present: normal bowel sounds, soft, no peritoneal signs. Absent: distended, tenderness - Extremities Exam Extremities exam: Present: warm, radial pulses palpable and symetrical. Absent : calf tenderness, cyanotic, pedal edema - VTE Documentation of Mechanical Device: Graduated compression elastic hosiery
--- NOTE | 2016-06-18 12:27 | Physician Discharge Referral ---
- Diagnosis (1) Carotid artery stenosis Status: Acute (2) Hyperlipidemia Status: Acute (3) Status post total knee replacement, left Status: Acute (4) Physical deconditioning Status: Acute (5) Gout Status: Acute (6) Leg weakness Status: Acute - Respiratory Orders Smoking Cessation: Smoking cessation has been advised. For more information, call the [place] Tobacco Quit Line at 7-551-OHGC-NOW. - Diet/Nutrition Diet/Nutrition Orders: Cardiac - Activity Activity Orders: Walker - Services Needed Following services are medically necessary services: Nursing, Physical Therapy, Occupational Therapy - Transfer Medications Prescriptions: Acetaminophen [Tylenol] 650 mg PO Q8HR #90 tablet Allopurinol [Zyloprim] 100 mg PO DAILY #30 tablet Colchicine [Colcrys] 0.6 mg PO DAILY #30 tablet Cyanocobalamin (B-12) [Vitamin B12] 1,000 mcg PO DAILY #90 tablet Ergocalciferol (VITAMIN D2) [Drisdol (50,000 Unit)] 50,000 unit PO QWEEK #20 capsule Fenofibrate [Tricor] 54 mg PO DAILY #90 tablet Thiamine (B-1) [Vitamin B-1] 200 mg PO DAILY #180 tablet Home Medications: Calcium/Magnesium/Vit D3 [Calcium 500 mg Tablet] 1 tab PO DAILY 02/02/16 [ History] Cholecalciferol (D-3) [Vitamin D] 1,000 unit PO DAILY 02/02/16 [History] Ezetimibe [Zetia] 10 mg PO DAILY 02/02/16 [History] Levothyroxine [Synthroid] 50 mcg PO DAILY 02/02/16 [History] Nitroglycerin [Nitrostat] 0.4 mg SL Q5M PRN 02/02/16 [History] Potassium Chloride [K-Tab ER] 10 meq PO BID 02/02/16 [History] Amlodipine [Norvasc] 5 mg PO DAILY 06/13/16 [History] Ibuprofen [Advil] 200 mg PO BID PRN 06/13/16 [History] Acetaminophen [Tylenol] 650 mg PO Q8HR #90 tablet 06/18/16 [Rx] Allopurinol [Zyloprim] 100 mg PO DAILY #30 tablet 06/18/16 [Rx] Colchicine [Colcrys] 0.6 mg PO DAILY #30 tablet 06/18/16 [Rx] Cyanocobalamin (B-12) [Vitamin B12] 1,000 mcg PO DAILY #90 tablet 06/18/16 [Rx] Ergocalciferol (VITAMIN D2) [Drisdol (50,000 Unit)] 50,000 unit PO QWEEK #20 capsule 06/18/16 [Rx] Fenofibrate [Tricor] 54 mg PO DAILY #90 tablet 06/18/16 [Rx] OxyCODONE/APAP 5/325 [Percocet 5/325 MG] 1 each PO Q8HR PRN #60 tablet 06/18/16 [Rx] Thiamine (B-1) [Vitamin B-1] 200 mg PO DAILY #180 tablet 06/18/16 [Rx] Allergies/Adverse Reactions: Allergies atorvastatin [From Lipitor] Adverse Reaction (Verified 03/18/16 03:11) Vomiting codeine Adverse Reaction (Verified 03/18/16 03:11) Vomiting haloperidol [From Haldol] Adverse Reaction (Verified 06/13/16 16:48) Hallucinating indomethacin Adverse Reaction (Verified 03/18/16 03:11) Gastrointestinal Upset lisinopril [From Prinivil] Adverse Reaction (Verified 03/18/16 03:11) Dizziness simvastatin [From Zocor] Adverse Reaction (Verified 03/18/16 03:11) Vomiting tramadol Adverse Reaction (Verified 03/18/16 03:11) See Comments UNKNOWN PER DAUGHTER Certification: Further, I certify that my clinical findings support that this patient is homebound (i.e. absences from home require considerable and taxing effort and are for medical reasons or oriental orthodox services or infrequently or short duration when for other reasons) because: Homebound Reason: Patient requires assistance of a person or device to safely leave home, Leaving home requires considerable and taxing effort due to condition Attestation: My signature below is to certify that this patient is under my care and that I, or nurse practitioner, or a physician's executive staff assistant working with me, has a face-to -face encounter with this patient.
== END 2016-06-18 15:10 | disposition home health service (06) | DRG 68 ==
LOC: 3BNU 12:56 → EMEROO 12:56 → 3BNU 19:06
PROVIDERS: ADMIT Internal Medicine; ATTEND Internal Medicine

== ENCOUNTER 2017-04-07 16:17 | Inpatient (IN) ==
[2017-04-07] MEDS ORDERED: Piperacillin/Tazobactam 3.375 GM in D5% in Water (Mini-Bag+) 100 ML IVPB ONE (20:01)
[2017-04-07] MEDS ORDERED: Vancomycin 1,000 MG in D5% in Water 250 ML IVPB ONE (20:01)
[2017-04-07] MEDS ORDERED: 0.9 % Sodium Chloride 1,000 ML IVC ONE (20:01)
--- NOTE | 2017-04-07 20:13 | Emergency Department Note ---
Disposition Clinical Impression: Hematoma, Weakness Cellulitis Qualifiers: Site of cellulitis: extremity Site of cellulitis of extremity: lower extremity Laterality: left Qualified Code(s): L03.116 - Cellulitis of left lower limb Leukocytosis Qualifiers: Leukocytosis type: unspecified Qualified Code(s): D72.829 - Elevated white blood cell count, unspecified Disposition: Admitted As Inpatient Condition: Undetermined Time of Disposition: 22:17 Wound/Laceration HPI - General Chief Complaint: ED Wound/Laceration Stated Complaint: L leg injury Time Seen by Provider: 04/07/17 19:32 Source: patient Mode of arrival: wheelchair Limitations: no limitations Nursing Notes Reviewed: Yes Vital Signs Reviewed: Yes - History of Present Illness Onset (ago): month(s) (1 worsened over the last 4 days) Extremity Location: Left: lower leg Place: home Patient Tetanus UTD: No Mechanism: accidental Associated symptoms: Reports: pain Pain Severity: mild Pain Scale: 1 Treatments prior to arrival: NSAIDS - Related Data Home Medications Medication Instructions Recorded Confirmed Cholecalciferol (D-3) [Vitamin D] 1,000 unit PO DAILY 02/02/16 04/07/17 Levothyroxine [Synthroid] 50 mcg PO QAM 02/02/16 04/07/17 Nitroglycerin [Nitrostat] 0.4 mg SL Q5M PRN 02/02/16 04/07/17 Potassium Chloride [K-Tab ER] 10 meq PO DAILY 02/02/16 04/07/17 Ibuprofen [Advil] 200 mg PO Q6H PRN 06/13/16 04/07/17 Amlodipine Besylate 10 mg PO DAILY 04/07/17 04/07/17 Furosemide [Lasix] 40 mg PO DAILY 04/07/17 04/07/17 Allergies Allergy/AdvReac Type Severity Reaction Status Date / Time atorvastatin [From Lipitor] AdvReac Vomiting Verified 03/18/16 03:11 codeine AdvReac Vomiting Verified 03/18/16 03:11 haloperidol [From Haldol] AdvReac Hallucinati Verified 06/13/16 16:48 ng indomethacin AdvReac Gastrointestinal Verified 03/18/16 03:11 Upset lisinopril [From Prinivil] AdvReac Dizziness Verified 03/18/16 03:11 simvastatin [From Zocor] AdvReac Vomiting Verified 03/18/16 03:11 tramadol AdvReac See Verified 03/18/16 03:11 Comments All systems ED: reviewed and negative except as stated. Constitutional: Reports: weakness. Denies: fever, chills Cardiovascular: Denies: chest pain, dyspnea on exertion, edema Respiratory: Denies: cough, dyspnea, wheezes Gastrointestinal: Denies: abdominal pain, nausea, vomiting Integumentary: Reports: lesions (LLE) Past Medical History - Past Medical History Attestation: Yes The following information was validated with the patient. Source: patient, old records reviewed Medical history: Reports: CHF, dementia, hyperlipidemia, hypertension, myocardial infarction, thyroid disease, TIA Surgical history: Reports: appendectomy, knee replacement Psychiatric history: Reports: no psych history - Social History Smoking Status: Never smoker Smokeless Tobacco Status: No Alcohol use: Reports: none Drug use: Reports: none Physical Exam - General Limitations: no limitations General appearance: alert, in no apparent distress - Head Head exam: atraumatic, normocephalic, normal inspection - Eye Eye exam: Present: normal appearance, PERRL, EOMI - ENT ENT exam: normal exam, normal oropharynx, mucous membranes moist - Neck Neck exam: Present: normal inspection, full ROM, trachea midline - Chest Chest inspection: Present: normal inspection, symmetric chest wall rise - Respiratory Respiratory exam: Present: normal lung sounds bilaterally - Cardiovascular Cardiovascular exam: Present: regular rate, normal rhythm, normal heart sounds - Abdominal Exam Abdominal exam: Present: soft, Non-Tender. Absent: tenderness, distention, guarding, rebound, rigidity - Extremities Exam Extremities exam: Present: full ROM, tenderness (LLE), other (Patient's left lower extremity from just distal to the knee to tips of toes is erythematous. Ear is a 10 x 20 cm area of necrosis with surrounding erythema. The patient has PT and DP pulses 2+ in bilateral lower extremity. Wound is warm to the touch surrounding the actual necrosis. Tenderness to palpation.) Course - Consultations Consultation #1: Spoke with Dr. Bassett in surgery who agreed that she will see the patient in the morning. Time: 22:15 Vital Signs Temperature 98.5 F 04/07/17 16:20 Pulse Rate 64 04/07/17 16:20 Respiratory Rate 18 04/07/17 16:20 Blood Pressure 133/61 04/07/17 16:20 O2 Sat by Pulse Oximetry 98 04/07/17 16:20 Temperature 97.8 F 04/08/17 00:23 Pulse Rate 52 04/08/17 00:23 Respiratory Rate 16 04/08/17 00:23 Blood Pressure 91/42 04/08/17 00:23 O2 Sat by Pulse Oximetry 93 04/08/17 00:23 Oxygen Delivery Oxygen Delivery Room Air Wound/Laceration - MDM Narrative Medical decision making narrative: Workup here in the emergency department demonstrates concern for cellulitis as well as abscess hematoma of left lower extremity. The patient's ESR is quite elevated as well as a CRP. With the patient's findings and examination, we will begin the patient on vancomycin and Zosyn. The patient will be admitted to the hospitalist after the CT read of abscess versus hematoma and saline as a left lower extremity. The patient was accepted by the hospitalist, Dr. Badillo. He requests a consult by Dr. Bassett and surgery who stated that she will see the patient in the morning. - Lab Data Lab results reviewed: Yes I reviewed the patient's lab results. Result diagrams: 04/07/17 20:08 04/07/17 20:08 Lab Results 04/07/17 04/07/17 04/07/17 Range/Units 20:08 20:08 20:08 WBC 12.4 H (4.3-11.1) K/mcL RBC 4.68 (3.82-4.97) M/mcL Hgb 13.3 (11.5-15.4) g/dL Hct 40.4 (35.3-44.9) % MCV 86.3 (83.0-100.0) fL MCH 28.4 (28.0-33.3) pg MCHC 32.9 (31.6-35.5) g/dL RDW 14.6 H (11.5-14.5) % Plt Count 401 H (140-400) K/mcL MPV 10.4 (9.4-12.4) fL Immature Gran % 0.4 (0-4) % Seg Neutrophils % 58.7 % Lymphocytes % 28.7 % Monocytes % 10.4 % Eosinophils % 1.2 % Basophils % 0.6 % Neutrophils # 7.3 (1.6-8.9) K/mcL Lymphocytes # 3.5 (0.6-4.6) K/mcL Monocytes # 1.3 (0.0-1.3) K/mcL Eosinophils # 0.2 (0.0-0.6) K/mcL Basophils # 0.1 (0.0-0.2) K/mcL Immature Plt Fraction 4.7 (1.1-6.1) % ESR (0-15) mm/hr Sodium 142 (136-145) mEq/L Potassium 3.8 (3.5-4.5) mEq/L Chloride 107 (98-109) mEq/L Carbon Dioxide 22 (19-29) mEq/L BUN 16 (7-20) mg/dL Creatinine 0.83 (0.57-1.11) mg/dL Est GFR ( Amer) > 60 (> 60) Est GFR (Non-Af Amer) > 60 (> 60) BUN/Creatinine Ratio 19 (6-26) Glucose 171 H (70-99) mg/dL Calculated Osmolality 299 (280-300) Lactic Acid 1.1 (0.5-2.2) mmol/L Calcium 10.5 (8.6-10.8) mg/dL C-Reactive Protein (Less than 5) mg/L 04/07/17 04/07/17 Range/Units 20:08 20:08 WBC (4.3-11.1) K/mcL RBC (3.82-4.97) M/mcL Hgb (11.5-15.4) g/dL Hct (35.3-44.9) % MCV (83.0-100.0) fL MCH (28.0-33.3) pg MCHC (31.6-35.5) g/dL RDW (11.5-14.5) % Plt Count (140-400) K/mcL MPV (9.4-12.4) fL Immature Gran % (0-4) % Seg Neutrophils % % Lymphocytes % % Monocytes % % Eosinophils % % Basophils % % Neutrophils # (1.6-8.9) K/mcL Lymphocytes # (0.6-4.6) K/mcL Monocytes # (0.0-1.3) K/mcL Eosinophils # (0.0-0.6) K/mcL Basophils # (0.0-0.2) K/mcL Immature Plt Fraction (1.1-6.1) % ESR 99 H (0-15) mm/hr Sodium (136-145) mEq/L Potassium (3.5-4.5) mEq/L Chloride (98-109) mEq/L Carbon Dioxide (19-29) mEq/L BUN (7-20) mg/dL Creatinine (0.57-1.11) mg/dL Est GFR ( Amer) (> 60) Est GFR (Non-Af Amer) (> 60) BUN/Creatinine Ratio (6-26) Glucose (70-99) mg/dL Calculated Osmolality (280-300) Lactic Acid (0.5-2.2) mmol/L Calcium (8.6-10.8) mg/dL C-Reactive Protein 54 H (Less than 5) mg/L - Radiology Data Radiology results reviewed: Yes I reviewed the patient's radiology results. Attestation Statement - Attestation Attestation: I, Jj Lujan DO, examined this patient [id number] and my medical decision-making was reviewed with Dr. Sanjay Hill, Resident Physician. I agree with the documented findings, disposition and treatment plan as described except to the extent set forth below. Please see my progress notes for details. 4-year-old female presents emergency room for evaluation of a wound to left leg. She has redness and swelling and pain that is new at this time patient is concerning for cellulitis or necrotic wound. Patient is a diabetic but denies any other medical history. No history of vascular ligaments patient seen to flow. Warm on presentation but is redness and the concern. Erysipelas versus cellulitis. There is a dark colored area with Celeste to the surface on the lateral aspect of the left calf that may or may not be hematoma versus abscesses formation this time. CT imaging of the leg as well as laboratory workup to be completed. Pain medication and antibiotic regimen restarted as needed. Patient is resting comfortable in the bed denying fevers chills nausea vomiting diarrhea. Denies chest pressure spelled change. No acute changes in mental status and issues at this time. See detailed documentation and physical exam, intervention, medical decision-making and disposition and the resident physician's note
[2017-04-07 20:18] LABS: Basophils # 0.1 K/mcL (0.0-0.2); Basophils % 0.6 %; Eosinophils # 0.2 K/mcL (0.0-0.6); Eosinophils % 1.2 %; Hematocrit 40.4 % (35.3-44.9); Hemoglobin 13.3 g/dL (11.5-15.4); Immature Granulocytes % 0.4 % (0-4); Immature Platelets 4.7 % (1.1-6.1); Lymphocytes # 3.5 K/mcL (0.6-4.6); Lymphocytes % 28.7 %; Mean Corpuscular HGB Conc 32.9 g/dL (31.6-35.5); Mean Corpuscular Hemoglobin 28.4 pg (28.0-33.3); Mean Corpuscular Volume 86.3 fL (83.0-100.0); Mean Platelet Volume 10.4 fL (9.4-12.4); Monocytes # 1.3 K/mcL (0.0-1.3); Monocytes % 10.4 %; Neutrophils # 7.3 K/mcL (1.6-8.9); Platelet Count 401 K/mcL (140-400); Red Blood Count 4.68 M/mcL (3.82-4.97); Red Cell Distribution Width 14.6 % (11.5-14.5); Segmented Neutrophils % 58.7 %
[2017-04-07 20:31] LABS: BUN/Creatinine Ratio 19 (6-26); Blood Urea Nitrogen 16 mg/dL (7-20); Calcium 10.5 mg/dL (8.6-10.8); Carbon Dioxide 22 mEq/L (19-29); Chloride 107 mEq/L (98-109); Glucose 171 mg/dL (70-99); Osmolality,Calculated 299 (280-300); Potassium 3.8 mEq/L (3.5-4.5); Sodium 142 mEq/L (136-145); eGFR For African Americans > 60 (> 60); eGFR For Non-African Americans > 60 (> 60)
[2017-04-08] MEDS ORDERED: Naloxone 0.4 MG/ML INJ IVP PRN (00:47)
[2017-04-08] MEDS ORDERED: Nitroglycerin 0.4 MG TAB.SUBL SL PRN (00:51)
[2017-04-08] MEDS: Acetaminophen 325 MG TABLET PO PRN (01:46)
[2017-04-08] MEDS ORDERED: Vancomycin 1,000 MG in D5% in Water 250 ML IVPB SCH (02:00)
--- NOTE | 2017-04-08 05:07 | Internal Med History&Physical ---
Date of Encounter: 04/08/17 Time of Encounter: 00:30 Assessment and Plan (1) Cellulitis Current visit: Yes Status: Acute We will continue Vanco and Zosyn. Follow up up blood culture and wound culture. - Surgical consult for fluid collection, possibly hematoma. Patient is at high risk because on vancomycin. Need close monitoring Qualifiers: Site of cellulitis: extremity Site of cellulitis of extremity: lower extremity Laterality: left Qualified Code(s): L03.116 - Cellulitis of left lower limb (2) Hypothyroid Current visit: No Status: Chronic Continue home medications Qualifiers: Hypothyroidism type: acquired Qualified Code(s): E03.9 - Hypothyroidism, unspecified (3) Hypertension Current visit: No Status: Acute Continue home medications Qualifiers: Hypertension type: essential hypertension Qualified Code(s): I10 - Essential (primary) hypertension (4) Hematoma Current visit: Yes Status: Acute Hold anticoagulation. Surgical consult in a.m. (5) DVT prophylaxis Current visit: No Status: Acute EPCD. No anticoagulation because of suspected hematoma Internal Medicine - H&P: HPI Chief complaint: Redness and swelling on left lower leg Admitted From: Home Plans for Post Hospital Care: Home History of present illness: Ms. Bee is a 82 year old female with history of hypertension, and s/p aortic valve repair, presented to emergency room for left lower leg redness and swelling. Patient said she feels sick for about 1 week, with mild fever. Patient has left lower leg pain and the skin redness, the redness is getting worse gradually. Since 2 days ago, she noticed the skin change color to black, with the swelling and the pain. Patient cannot clearly tell if there is trauma. She denies nausea or vomiting. In emergency room, CT leg shows fluid collection. Suspected hematoma or abscess. Surgical consult called by ER doctor. Patient was placed on Vanco and Zosyn for cellulitis. She was admitted for further management. Past Med Surg Social Fam HX - Past Medical History Medical history: CHF, dementia, hyperlipidemia, hypertension, myocardial infarction, thyroid disease, TIA Psychiatric history: no psych history - Past Surgical History Surgical History: appendectomy, knee replacement - Social History Smoking Status: Never smoker Smokeless Tobacco Status: No Alcohol use: none Drug use: none - Family History Mother Hx Family Cardiac Disorders: Yes (HTN, ND, HLD) Hx Family Respiratory Disorders: No Hx Family Cancer: No Hx Family GI Disorders: No Hx Family Endocrine Disorder: No Hx Family Neuromuscular Disorders: No Hx Family Neurologic Disorders: No Hx Family HEENT Disorders: No Hx Family Autoimmune Disorders: No Internal Medicine - H&P: Meds Cholecalciferol (D-3) [Vitamin D] 1,000 unit PO DAILY 02/02/16 [History] Levothyroxine [Synthroid] 50 mcg PO QAM 02/02/16 [History] Nitroglycerin [Nitrostat] 0.4 mg SL Q5M PRN 02/02/16 [History] Potassium Chloride [K-Tab ER] 10 meq PO DAILY 02/02/16 [History] Ibuprofen [Advil] 200 mg PO Q6H PRN 06/13/16 [History] Amlodipine Besylate 10 mg PO DAILY 04/07/17 [History] Furosemide [Lasix] 40 mg PO DAILY 04/07/17 [History] 3 Allergy/AdvReac Type Severity Reaction Status Date / Time atorvastatin [From Lipitor] AdvReac Vomiting Verified 03/18/16 03:11 codeine AdvReac Vomiting Verified 03/18/16 03:11 haloperidol [From Haldol] AdvReac Hallucinati Verified 06/13/16 16:48 ng indomethacin AdvReac Gastrointestinal Verified 03/18/16 03:11 Upset lisinopril [From Prinivil] AdvReac Dizziness Verified 03/18/16 03:11 simvastatin [From Zocor] AdvReac Vomiting Verified 03/18/16 03:11 tramadol AdvReac See Verified 03/18/16 03:11 Comments All Systems PM: A 10-system review of systems was performed and is negative for pertinent findings except as documented above in the HPI. - Constitutional Vitals: Temp Pulse Resp BP Pulse Ox 98.0 F 60 16 109/67 96 04/08/17 03:48 04/08/17 03:48 04/08/17 03:48 04/08/17 03:48 04/08/17 03:48 General appearance: Present: A&O X 3, no acute distress, answers questions appropriately - Head Head exam: Present: atraumatic, normocephalic - Eye Eye exam: Present: PERRL, conjuntiva pink, sclera anicteric Pupils: Present: PERRL - Neck Neck exam general surgery: Present: supple, trachea midline. Absent: lymphadenopathy - Respiratory Respiratory exam: Present: CTAB. Absent: accessory muscle use, rales, rhonchi, wheezes - Cardiovascular Cardiovascular exam: Present: RRR, +S1, +S2. Absent: diastolic murmur, gallop, rubs, systolic murmur - GI/Abdominal GI/Abdominal exam: Present: normal bowel sounds, soft, no peritoneal signs. Absent: distended, tenderness - Extremities Exam Extremities exam: Present: warm, radial pulses palpable and symmetrical. Absent : calf tenderness, cyanotic, pedal edema Additional comments: Left lower leg skin redness, with black crust in the middle, fluid collection under the skin - Neurological Exam Neurological exam: Present: CN II-XII intact, oriented X3, no focal deficits. Absent: pronater drift, facial droop, speech deficit - Skin Skin exam: Present: dry, intact Internal Med - H&P Results - Labs CBC & Chem 7: 04/07/17 20:08 04/07/17 20:08
[2017-04-08 06:11] LABS: BUN/Creatinine Ratio 16 (6-26); Blood Urea Nitrogen 13 mg/dL (7-20); Calcium 9.1 mg/dL (8.6-10.8); Carbon Dioxide 23 mEq/L (19-29); Chloride 110 mEq/L (98-109); Glucose 185 mg/dL (70-99); Osmolality,Calculated 299 (280-300); Potassium 3.2 mEq/L (3.5-4.5); Sodium 142 mEq/L (136-145); eGFR For African Americans > 60 (> 60); eGFR For Non-African Americans > 60 (> 60)
[2017-04-08] MEDS: amLODIPine 5 MG TABLET PO SCH (07:47)
[2017-04-08] MEDS: Piperacillin/Tazobactam 3.375 GM in D5% in Water (Mini-Bag+) 100 ML IVPB SCH ×3 (07:47→23:56)
[2017-04-08] MEDS: Furosemide 40 MG TABLET PO SCH (07:47)
[2017-04-08] MEDS: Cholecalciferol (D-3) 1,000 UNIT TABLET PO SCH (07:47)
[2017-04-08 08:17] LABS: Basophils # 0.1 K/mcL (0.0-0.2); Basophils % 0.6 %; Eosinophils # 0.2 K/mcL (0.0-0.6); Hemoglobin 11.2 g/dL (11.5-15.4); Immature Granulocytes % 0.4 % (0-4); Immature Platelets 4.2 % (1.1-6.1); Lymphocytes # 2.7 K/mcL (0.6-4.6); Lymphocytes % 25.7 %; Mean Corpuscular HGB Conc 32.9 g/dL (31.6-35.5); Mean Corpuscular Hemoglobin 28.5 pg (28.0-33.3); Mean Corpuscular Volume 86.5 fL (83.0-100.0); Mean Platelet Volume 10.6 fL (9.4-12.4); Monocytes # 1.3 K/mcL (0.0-1.3); Neutrophils # 6.2 K/mcL (1.6-8.9); Platelet Count 363 K/mcL (140-400); Red Blood Count 3.93 M/mcL (3.82-4.97); Red Cell Distribution Width 14.5 % (11.5-14.5); Segmented Neutrophils % 59.3 %
[2017-04-08] MEDS ORDERED: Lidocaine Jelly 11 ml Syringe TP STA (09:00)
--- NOTE | 2017-04-08 09:08 | General Surgery Consult Note ---
<Kirstie Thomas - Last Filed: 04/08/17 11:17> Date of Encounter: 04/08/17 Time of Encounter: 09:05 Assessment and Plan (1) Hematoma of left lower extremity Current Visit: Yes Status: Acute Attempted to debride at bedside. Pt would not tolerate. Will apply lidocaine jelly and reattempt. After lidocaine jelly application for approximately 20 minutes, the procedure was again reviewed with the patient including the need for mechanical debridement at bedside. Patient and daughter were agreeable to proceed. She was pretty medicated with 2 mg IV morphine one dose. See procedure note for further description; in short the areas of eschar were removed with mechanical debridement. The margins remain loose and remnants of hematoma remain. Plan: -wound care: Adaptic covered by saline soaked gauze covered by APD and wrapped with kerlix. May replace outer dressing PRN when soaked. -She will need follow-up in wound care, with Dr. Bassett, for eventual transition to wound VAC. Pt and daughter aware that more areas of debridement may be necessary and are agreeable to the plan. Qualifiers: Encounter type: initial encounter Qualified Code(s): S80.12XA - Contusion of left lower leg, initial encounter (2) Physical deconditioning Current Visit: No Status: Acute Management per primary team. History of Present Illness Consult date: 04/07/17 (Dr. Bassett) Reason for consult: other (Left lower leg pain and bloody drainage) Requesting physician: Sanjay Hill History of present illness: Reason for Consult: left lower extremity hematoma The HPI is obtained via patient interview and chart review. Cassy is a pleasant 82-year-old female who has a past medical history of left total knee replacement, CKD, hypothyroidism, obesity,Grade II diastolic dysfunction, hypertension, CVA/TIA, hyperlipidemia, carotid artery stenosis, ASHD (per aortic calcifications on imaging), and gout. Her last stress test was in 2015 and was nondiagnostic for ischemia d/t submaximal HR and the NM study was negative for ischemia or prior infarction, EF at 70%. Her last echo was 2014 and demonstrated a ejection fraction of 65% and grade II diastolic dysfunction. She presented on for a three-day history of left lower leg pain, swelling, and bloody drainage. She states she bumped her leg on something but is unable to remember how or when. She denies a history of anticoagulation. She denies fevers or chills, headache, dizziness, syncope, near syncope, chest pain, shortness of breath, abdominal pain, nausea, vomiting, change in bowel habits, or urinary signs or symptoms. She denies lower extremity pain outside the area of hematoma. She denies any history of PVD or PAD. Her hospital course thus far has included a LLE venous Doppler's on 04/07/2017 were positive for left lower extremity lesser saphenous vein acute thrombus, and the lower extremities CT with contrast which revealed a 6.7 x 1.9 x 12.6 cm hetero genocide cutaneous collection in the anterolateral aspect of the mid- left calf compatible with the hematoma. No osseous abnormality. . Past Med Surg Social Fam HX - Past Medical History Source: patient, old records reviewed Medical history: CHF, CVA, dementia, hyperlipidemia, hypertension, myocardial infarction, thyroid disease, TIA Psychiatric history: no psych history - Past Surgical History Surgical History: appendectomy, knee replacement - Social History Smoking Status: Never smoker Smokeless Tobacco Status: No Alcohol use: none Drug use: none - Family History Mother Hx Family Cardiac Disorders: Yes (HTN, [place], HLD) Hx Family Respiratory Disorders: No Hx Family Cancer: No Hx Family GI Disorders: No Hx Family Endocrine Disorder: No Hx Family Neuromuscular Disorders: No Hx Family Neurologic Disorders: No Hx Family HEENT Disorders: No Hx Family Autoimmune Disorders: No Medications and Allergies Cholecalciferol (D-3) [Vitamin D] 1,000 unit PO DAILY 02/02/16 [History] Levothyroxine [Synthroid] 50 mcg PO QAM 02/02/16 [History] Nitroglycerin [Nitrostat] 0.4 mg SL Q5M PRN 02/02/16 [History] Potassium Chloride [K-Tab ER] 10 meq PO DAILY 02/02/16 [History] Ibuprofen [Advil] 200 mg PO Q6H PRN 06/13/16 [History] Amlodipine Besylate 10 mg PO DAILY 04/07/17 [History] Furosemide [Lasix] 40 mg PO DAILY 04/07/17 [History] 3 Allergy/AdvReac Type Severity Reaction Status Date / Time atorvastatin [From Lipitor] AdvReac Vomiting Verified 03/18/16 03:11 codeine AdvReac Vomiting Verified 03/18/16 03:11 haloperidol [From Haldol] AdvReac Hallucinati Verified 06/13/16 16:48 ng indomethacin AdvReac Gastrointestinal Verified 03/18/16 03:11 Upset lisinopril [From Prinivil] AdvReac Dizziness Verified 03/18/16 03:11 simvastatin [From Zocor] AdvReac Vomiting Verified 03/18/16 03:11 tramadol AdvReac See Verified 03/18/16 03:11 Comments Review of Systems All systems PM: A 10-system review of systems was performed and is negative for pertinent findings except as documented above in the HPI. General Surgery Exam Initial Vital Signs Temp Pulse Resp BP Pulse Ox 98.5 F 64 18 133/61 98 04/07/17 16:20 04/07/17 16:20 04/07/17 16:20 04/07/17 16:20 04/07/17 16:20 - General physical appearance well developed, well nourished, no distress - Eyes PERRL, normal ocular movement - ENT normal mucosa, no congestion, atraumatic, normocephalic. negative: no hearing loss (MARY'S IGLOO) - Neck trachea midline, no venous distension - Respiratory normal expansion, normal respiratory effort, clear to auscultation - Cardiovascular Cardiovascular exam: Present: RRR, murmurs - Abdomen Abdomen general surgery: Present: bowel sounds present, soft, non tender - Integumentary Integumentary general surgery: Present: warm and dry, other (LLE soft, liquid, draining, hematoma with overlying eschar. ) - Neurologic Present: CN 2-12 grossly intact, normal coordination, normal sensation - Musculoskeletal Present: other (generalized weakness. Has FWW at bedside. Required 2-person assist to transfer to bed.) - Psychiatric Psychiatric general surgery: Present: A&Ox3, appropriate, oriented to person, oriented to place, oriented to time, speech is normal, memory intact Exam Initial Vital Signs Temp Pulse Resp BP Pulse Ox 98.5 F 64 18 133/61 98 04/07/17 16:20 04/07/17 16:20 04/07/17 16:20 04/07/17 16:20 04/07/17 16:20 Results - Labs 04/08/17 07:02 04/08/17 05:00 Abnormal lab results Hgb 11.2 g/dL (11.5-15.4) L D 04/08/17 07:02 Hct 34.0 % (35.3-44.9) L 04/08/17 07:02 ESR 99 mm/hr (0-15) H 04/07/17 20:08 Potassium 3.2 mEq/L (3.5-4.5) L 04/08/17 05:00 Chloride 110 mEq/L (98-109) H 04/08/17 05:00 Glucose 185 mg/dL (70-99) H 04/08/17 05:00 C-Reactive Protein 54 mg/L (Less than 5) H 04/07/17 20:08 Diabetes panel 04/08/17 Range/Units 05:00 Sodium 142 (136-145) mEq/L Potassium 3.2 L (3.5-4.5) mEq/L Chloride 110 H (98-109) mEq/L Carbon Dioxide 23 (19-29) mEq/L BUN 13 (7-20) mg/dL Creatinine 0.81 (0.57-1.11) mg/dL Glucose 185 H (70-99) mg/dL Calcium 9.1 (8.6-10.8) mg/dL Calcium panel 04/08/17 Range/Units 05:00 Calcium 9.1 (8.6-10.8) mg/dL Pituitary panel 04/08/17 Range/Units 05:00 Sodium 142 (136-145) mEq/L Potassium 3.2 L (3.5-4.5) mEq/L Chloride 110 H (98-109) mEq/L Carbon Dioxide 23 (19-29) mEq/L BUN 13 (7-20) mg/dL Creatinine 0.81 (0.57-1.11) mg/dL Glucose 185 H (70-99) mg/dL Calcium 9.1 (8.6-10.8) mg/dL Adrenal panel 04/08/17 Range/Units 05:00 Sodium 142 (136-145) mEq/L Potassium 3.2 L (3.5-4.5) mEq/L Chloride 110 H (98-109) mEq/L Carbon Dioxide 23 (19-29) mEq/L BUN 13 (7-20) mg/dL Creatinine 0.81 (0.57-1.11) mg/dL Glucose 185 H (70-99) mg/dL Calcium 9.1 (8.6-10.8) mg/dL All other labs normal. - Imaging Additional studies: Lower Extremity CT 04/07/17 20:01 IMPRESSION: 1. 6.7 x 1.9 x 12.6 cm heterogeneous subcutaneous collection in the anterolateral aspect of the mid left calf compatible with a hematoma versus abscess. 2. No acute osseous abnormality. D/ / Truong Lopez MD / Truong Lopez MD Interpreting Provider: Truong Lopez MD Procedures: General Surgery - Abscess I/D Additional comments: Mechanical debridement INDICATION: left lower extremity anterolateral hematoma with eschar INFORMED CONSENT: The risks and benefits of the procedure including incomplete drainage, scarring, infection and bleeding was explained and the patient verbalized their understanding and wished to proceed with the procedure. PROCEDURE: the area was localized with 22 ML's of lidocaine jelly that rested for approximately 20 minutes. The areas of eschar were removed with a number 10 scalpel. There was a small amount of dark, liquid, bloody material returned. Decompression of the area with manual pressure evacuated large amounts of coagulated blood. There was no purulent material noted. The area measured approximately 8 cm (L) x 4CM (W) x 1 CM (depth); although, the depth was difficult to measure given the amount of remaining hematoma present. The remaining hematoma was very friable and not ameanable to mechanical debridement. FINDINGS: partially liquefied partially coagulated Hematoma EBL: <5 mL COMPLICATIONS: None. Signature: CHERRY Johnson Consult Discharge Plan - Plan Referrals: NONE,PCP [Primary Care Provider] - <Margo Bassett - Last Filed: 04/08/17 14:56> Date of Encounter: 04/08/17 Assessment and Plan (1) Cellulitis Current Visit: Yes Status: Acute continue Abx Qualifiers: Site of cellulitis: extremity Site of cellulitis of extremity: lower extremity Laterality: left Qualified Code(s): L03.116 - Cellulitis of left lower limb (2) Hematoma of left lower extremity Current Visit: Yes Status: Acute discussed with patient and daughter that pain she is experiencing is from the good tissue underneath the hematoma and necrotic skin/soft tissue. Discussed bedside debridement, will plan wet to dry dressing changes daily, elevate legs when sitting continue Abx likely will need wound vac in future Qualifiers: Encounter type: initial encounter Qualified Code(s): S80.12XA - Contusion of left lower leg, initial encounter (3) Leukocytosis Current Visit: Yes Status: Acute trend Qualifiers: Leukocytosis type: unspecified Qualified Code(s): D72.829 - Elevated white blood cell count, unspecified History of Present Illness History of present illness: Patient is 82 yo female who states she slid down "something" and adamantly states she didn't fall on anything. She lives with her daughter who states that on March 31 with the hematoma of the left lower extremity. She states over the next few days the area would bleed a little bit. Over time it has become more painful, swollen and red. Review of Systems All systems PM: reviewed and no additional remarkable complaints except as stated All systems PM: A 10-system review of systems was performed and is negative for pertinent findings except as documented above in the HPI. General Surgery Exam Initial Vital Signs Temp Pulse Resp BP Pulse Ox 98.5 F 64 18 133/61 98 04/07/17 16:20 04/07/17 16:20 04/07/17 16:20 04/07/17 16:20 04/07/17 16:20 - General physical appearance well nourished, no distress - Eyes PERRL, normal ocular movement - Neck trachea midline - Respiratory normal expansion, normal respiratory effort - Cardiovascular Cardiovascular exam: Present: RRR - Integumentary Integumentary general surgery: Present: other - Neurologic Present: CN 2-12 grossly intact - Musculoskeletal Present: normal posture - Psychiatric Psychiatric general surgery: Present: oriented to person, oriented to place, oriented to time, other (seems to have some confusion remembering events) - Additional Findings palpable DP pulse LLE Exam Initial Vital Signs Temp Pulse Resp BP Pulse Ox 98.5 F 64 18 133/61 98 04/07/17 16:20 04/07/17 16:20 04/07/17 16:20 04/07/17 16:20 04/07/17 16:20 Results - Labs 04/08/17 07:02 04/08/17 05:00 Abnormal lab results Hgb 11.2 g/dL (11.5-15.4) L D 04/08/17 07:02 Hct 34.0 % (35.3-44.9) L 04/08/17 07:02 ESR 99 mm/hr (0-15) H 04/07/17 20:08 Potassium 3.2 mEq/L (3.5-4.5) L 04/08/17 05:00 Chloride 110 mEq/L (98-109) H 04/08/17 05:00 Glucose 185 mg/dL (70-99) H 04/08/17 05:00 C-Reactive Protein 54 mg/L (Less than 5) H 04/07/17 20:08 Diabetes panel 04/08/17 Range/Units 05:00 Sodium 142 (136-145) mEq/L Potassium 3.2 L (3.5-4.5) mEq/L Chloride 110 H (98-109) mEq/L Carbon Dioxide 23 (19-29) mEq/L BUN 13 (7-20) mg/dL Creatinine 0.81 (0.57-1.11) mg/dL Glucose 185 H (70-99) mg/dL Calcium 9.1 (8.6-10.8) mg/dL Calcium panel 04/08/17 Range/Units 05:00 Calcium 9.1 (8.6-10.8) mg/dL Pituitary panel 04/08/17 Range/Units 05:00 Sodium 142 (136-145) mEq/L Potassium 3.2 L (3.5-4.5) mEq/L Chloride 110 H (98-109) mEq/L Carbon Dioxide 23 (19-29) mEq/L BUN 13 (7-20) mg/dL Creatinine 0.81 (0.57-1.11) mg/dL Glucose 185 H (70-99) mg/dL Calcium 9.1 (8.6-10.8) mg/dL Adrenal panel 04/08/17 Range/Units 05:00 Sodium 142 (136-145) mEq/L Potassium 3.2 L (3.5-4.5) mEq/L Chloride 110 H (98-109) mEq/L Carbon Dioxide 23 (19-29) mEq/L BUN 13 (7-20) mg/dL Creatinine 0.81 (0.57-1.11) mg/dL Glucose 185 H (70-99) mg/dL Calcium 9.1 (8.6-10.8) mg/dL All other labs normal. - Attending Attestation I have personally performed a face to face evaluation on this patient. I have reviewed and agree with the care plan. History and Exam by me shows:
[2017-04-08] MEDS ORDERED: *HR* Morphine 2 MG/ML SYRINGE IVP ONE (10:28)
[2017-04-08 16:12] LABS: Acinetobacter baumannii by PCR Not Detected (Not Detect); Candida albicans by PCR Not Detected (Not Detect); Candida glabrata by PCR Not Detected (Not Detect); Candida krusei by PCR Not Detected (Not Detect); Candida parapsilosis by PCR Not Detected (Not Detect); Candida tropicalis by PCR Not Detected (Not Detect); Enterococcus by PCR Not Detected (Not Detect); Escherichia coli by PCR Not Detected (Not Detect); Klebsiella oxytoca by PCR Not Detected (Not Detect); Klebsiella pneumoniae by PCR Not Detected (Not Detect); Pseudomonas aeruginosa by PCR Not Detected (Not Detect); Serratia marcescens by PCR Not Detected (Not Detect); Staphylococcus aureus by PCR Not Detected (Not Detect); Streptococcus agalactiae(B)PCR Not Detected (Not Detect); Streptococcus by PCR Not Detected (Not Detect); Streptococcus pneumoniae PCR Not Detected (Not Detect); Streptococcus pyogenes (A) PCR Not Detected (Not Detect)
[2017-04-08] MEDS ORDERED: *HR* LORazepam 2 MG/ML VIAL IVP ONE (18:52)
[2017-04-08] MEDS ORDERED: *HR* LORazepam 2 MG/ML VIAL IVP STA (19:12)
[2017-04-08] MEDS ORDERED: *HR* LORazepam 2 MG/ML VIAL IM STA (19:22)
--- NOTE | 2017-04-08 22:36 | Internal Med Progress Note ---
Date of Encounter: 04/08/17 Time of Encounter: 13:00 - Assessment and plan (1) Cellulitis of left lower extremity Current Visit: Yes Status: Acute Assessment and plan: Continue Vanc/Zosyn. Check patient response clinically tomorrow as well as AM labs. (2) Hematoma of left lower extremity Current Visit: Yes Status: Acute Assessment and plan: Surgery on board, recs appreciated. She had mechanical debridement at bedside earlier today. Plan for wound care now and with outpatient follow-up as well. Qualifiers: Encounter type: initial encounter Qualified Code(s): S80.12XA - Contusion of left lower leg, initial encounter (3) Diabetes Current Visit: No Status: Chronic Qualifiers: Diabetes mellitus type: type 2 Diabetes mellitus complication status: without complication Diabetes mellitus correction insulin use: without terminal operations supervisor use Qualified Code(s): E11.9 - Type 2 diabetes mellitus without complications (4) Hypothyroid Current Visit: No Status: Chronic Qualifiers: Hypothyroidism type: acquired Qualified Code(s): E03.9 - Hypothyroidism, unspecified (5) Hyperlipidemia Current Visit: No Status: Acute Assessment and plan: Has documented allergy to simvistatin. Will hold for now. If ASCVD risk high enough for high intensity statin therapy, will have to address this with PCP. Qualifiers: Hyperlipidemia type: unspecified Qualified Code(s): E78.5 - Hyperlipidemia , unspecified (6) Thrombosis of saphenous vein Current Visit: Yes Status: Acute Assessment and plan: Superficial vein. DVT prophylaxis dose of Lovenox is held for time being due to leg hematoma. Qualifiers: Laterality: left Qualified Code(s): I82.812 - Embolism and thrombosis of superficial veins of left lower extremity - Subjective Interval history: Patient is s/p bedside mechanical debridement. Pre-medicated with 2 mg IV morphine one dose. - Constitutional Vitals: Temp Pulse Resp BP Pulse Ox 97.6 F 76 16 144/73 96 04/08/17 20:42 04/08/17 20:42 04/08/17 20:42 04/08/17 20:42 04/08/17 20:42 General appearance: Present: A&O X 3, no acute distress, answers questions appropriately Internal Medicine: Result - Labs CBC & Chem 7: 04/08/17 07:02 04/08/17 05:00 Labs: Short CBC 04/08/17 Range/Units 07:02 WBC 10.4 (4.3-11.1) K/mcL Hgb 11.2 L D (11.5-15.4) g/dL Hct 34.0 L (35.3-44.9) % Plt Count 363 (140-400) K/mcL Neutrophils # 6.2 (1.6-8.9) K/mcL BMP 04/08/17 05:00 Sodium 142 Potassium 3.2 L Chloride 110 H Carbon Dioxide 23 BUN 13 Creatinine 0.81 Glucose 185 H Calcium 9.1 Consult Discharge Plan - Plan Referrals: NONE,PCP [Primary Care Provider] -
[2017-04-08] MEDS: Vancomycin 1,250 MG in D5% in Water 250 ML IVPB SCH (23:33)
[2017-04-09 08:07] LABS: Basophils # 0.1 K/mcL (0.0-0.2); Basophils % 0.7 %; Eosinophils # 0.3 K/mcL (0.0-0.6); Eosinophils % 2.4 %; Hematocrit 37.3 % (35.3-44.9); Hemoglobin 12.2 g/dL (11.5-15.4); Immature Granulocytes % 0.3 % (0-4); Lymphocytes # 2.8 K/mcL (0.6-4.6); Lymphocytes % 22.9 %; Mean Corpuscular HGB Conc 32.7 g/dL (31.6-35.5); Mean Corpuscular Hemoglobin 28.3 pg (28.0-33.3); Mean Corpuscular Volume 86.5 fL (83.0-100.0); Mean Platelet Volume 10.5 fL (9.4-12.4); Monocytes # 1.4 K/mcL (0.0-1.3); Monocytes % 11.5 %; Neutrophils # 7.6 K/mcL (1.6-8.9); Platelet Count 390 K/mcL (140-400); Red Blood Count 4.31 M/mcL (3.82-4.97); Segmented Neutrophils % 62.2 %
[2017-04-09 08:21] LABS: BUN/Creatinine Ratio 12 (6-26); Blood Urea Nitrogen 9 mg/dL (7-20); Calcium 9.5 mg/dL (8.6-10.8); Carbon Dioxide 24 mEq/L (19-29); Chloride 108 mEq/L (98-109); Glucose 137 mg/dL (70-99); Osmolality,Calculated 287 (280-300); Potassium 3.6 mEq/L (3.5-4.5); Sodium 138 mEq/L (136-145); eGFR For African Americans > 60 (> 60); eGFR For Non-African Americans > 60 (> 60)
[2017-04-09] MEDS: Piperacillin/Tazobactam 3.375 GM in D5% in Water (Mini-Bag+) 100 ML IVPB SCH ×3 (09:06→23:33)
[2017-04-09] MEDS: amLODIPine 5 MG TABLET PO SCH (09:07)
[2017-04-09] MEDS: Furosemide 40 MG TABLET PO SCH (09:07)
[2017-04-09] MEDS: Cholecalciferol (D-3) 1,000 UNIT TABLET PO SCH (09:07)
[2017-04-09] MEDS ORDERED: Lidocaine Jelly 11 ml Syringe TP STA (10:07)
[2017-04-09] MEDS ORDERED: *HR* Morphine 2 MG/ML SYRINGE IVP ONE (10:10)
[2017-04-09] MEDS ORDERED: Ondansetron 4 MG/2 ML VIAL IVP ONE (10:10)
--- NOTE | 2017-04-09 10:10 | General Surgery Progress Note ---
<Kirstie Thomas - Last Filed: 04/09/17 15:03> Date of Encounter: 04/09/17 Time of Encounter: 10:10 - Assessment and Plan (1) Hematoma of left lower extremity Current Visit: Yes Status: Acute Bedside mechanical debridement completed on 04/08/2017. Area approximately 8 cm length by 4 cm width. Small amount of liquid maroon material evacuated. Large amount of coagulated dark, maroon material evacuated. 04/09/2017: Dressing changed. Minimal packing in the margins of the area needed. Suspected she will require further debridement in the future. Plan: -wound care: Wet to dry dressing in the wound bed. Pack undermining in the margins with saline moistened kerlix. May replace outer dressing PRN when soaked. -She will need follow-up in wound care, with Dr. Bassett, for eventual transition to wound VAC. We will continue to follow along with you. Qualifiers: Encounter type: initial encounter Qualified Code(s): S80.12XA - Contusion of left lower leg, initial encounter (2) Delirium Current Visit: Yes Status: Acute Urinalysis positive for UTI, refluxed culture. Blood cultures positive for gram -positive cocci. Delirium likely secondary to pathological course. Management per primary team. (3) Physical deconditioning Current Visit: No Status: Acute Management per primary team; however, we did consult occupational and physical therapy given the large area of the left lower extremity which will require dressing changes, eventually a wound VAC, and likely to inhibit functionality. Patient with questionable falls at home as she is reluctant to provide history of how her left lower extremity when occurred. Subjective Narrative: Sitter at bedside. Pt is drowsy making ROS difficult. Daughter at bedside rates the patient became anxious yesterday when the daughter mentioned leaving the hospital for a short period of time and from that point began developing confusion. The sitter was placed at bedside for safety. Objective Vital Signs - Last 8 Hours Temp Pulse Resp BP Pulse Ox 04/09/17 08:56 161/78 04/09/17 08:40 98.3 F 69 20 178/81 97 Intake and Output 04/08/17 04/09/17 04/09/17 23:59 07:59 15:59 Intake Total 100 / 100 350 / 350 300 / 300 Output Total 300 / 300 Balance -200 / -200 350 / 350 300 / 300 Intake: IV Fluids 100 / 100 350 / 350 Zosyn 3.375 GM In Dextrose 5% ( 100 / 100 100 / 100 Minibag+) 100 ML 100 ML @ 25 mls/hr IVPB Q8HR [facility] Rx#: [id number] Vancocin 1,250 MG In Dextrose 5 250 / 250 % 250 ML @ 166.667 mls/hr IVPB Q24H [facility] Rx#:[id number] Oral 300 / 300 Output: Urine 300 / 300 Other: Meal Breakfast Percent of Meal Consumed 20% # Voids 1 - General physical appearance no distress (drowsy; sitter at bedside) - Eyes normal ocular movement - ENT atraumatic, normocephalic - Neck Neck exam: trachea midline, no venous distension - Respiratory normal expansion, normal respiratory effort, clear to auscultation - Cardiovascular Cardiovascular exam: Present: RRR, murmurs - Abdomen Abdomen: Present: bowel sounds present, soft, non tender - Integumentary no rash, other - Neurologic confused (drowsy; sitter at bedside) - Musculoskeletal normal posture - Psychiatric other (drowsy) - Labs 04/09/17 07:44 04/09/17 07:44 Diabetes panel 04/09/17 Range/Units 07:44 Sodium 138 (136-145) mEq/L Potassium 3.6 (3.5-4.5) mEq/L Chloride 108 (98-109) mEq/L Carbon Dioxide 24 (19-29) mEq/L BUN 9 (7-20) mg/dL Creatinine 0.76 (0.57-1.11) mg/dL Glucose 137 H (70-99) mg/dL Calcium 9.5 (8.6-10.8) mg/dL Calcium panel 04/09/17 Range/Units 07:44 Calcium 9.5 (8.6-10.8) mg/dL Pituitary panel 04/09/17 Range/Units 07:44 Sodium 138 (136-145) mEq/L Potassium 3.6 (3.5-4.5) mEq/L Chloride 108 (98-109) mEq/L Carbon Dioxide 24 (19-29) mEq/L BUN 9 (7-20) mg/dL Creatinine 0.76 (0.57-1.11) mg/dL Glucose 137 H (70-99) mg/dL Calcium 9.5 (8.6-10.8) mg/dL Adrenal panel 04/09/17 Range/Units 07:44 Sodium 138 (136-145) mEq/L Potassium 3.6 (3.5-4.5) mEq/L Chloride 108 (98-109) mEq/L Carbon Dioxide 24 (19-29) mEq/L BUN 9 (7-20) mg/dL Creatinine 0.76 (0.57-1.11) mg/dL Glucose 137 H (70-99) mg/dL Calcium 9.5 (8.6-10.8) mg/dL Consult Discharge Plan - Plan Referrals: NONE,PCP [Primary Care Provider] - <Margo Bassett - Last Filed: 04/10/17 09:09> Date of Encounter: 04/09/17 - Assessment and Plan (1) Cellulitis Current Visit: Yes Status: Acute improving with antibiotics Qualifiers: Site of cellulitis: extremity Site of cellulitis of extremity: lower extremity Laterality: left Qualified Code(s): L03.116 - Cellulitis of left lower limb (2) Hematoma of left lower extremity Current Visit: Yes Status: Acute small amount of residual hematoma present and being debrided with dressing changes, wound bed healthy prn pain control continue daily wet to moist dressing changes and will likely transition to wound vac in a week or so Qualifiers: Encounter type: initial encounter Qualified Code(s): S80.12XA - Contusion of left lower leg, initial encounter (3) Leukocytosis Current Visit: Yes Status: Acute Qualifiers: Leukocytosis type: unspecified Qualified Code(s): D72.829 - Elevated white blood cell count, unspecified Subjective Narrative: patient complaining of pain at site of wound/hematoma Objective Vital Signs - Last 8 Hours Temp Pulse Resp BP Pulse Ox 04/10/17 08:57 97.5 F L 76 16 126/72 97 Intake and Output 04/09/17 04/10/17 04/10/17 23:59 07:59 15:59 Intake Total 590 / 590 100 / 100 Balance 590 / 590 100 / 100 Intake: IV Fluids 350 / 350 100 / 100 Zosyn 3.375 GM In Dextrose 5% ( 100 / 100 100 / 100 Minibag+) 100 ML 100 ML @ 25 mls/hr IVPB Q8HR [facility] Rx#: [id number] Vancocin 1,250 MG In Dextrose 5 250 / 250 % 250 ML @ 166.667 mls/hr IVPB Q24H [facility] Rx#:[id number] Oral 240 / 240 Other: Meal Dinner Percent of Meal Consumed 100% # Voids 1 Weight 74.3 kg Patient Weight 04/10/17 23:59 Weight 74.3 kg - General physical appearance well nourished, moderate pain - Eyes PERRL, normal ocular movement - ENT normal mucosa, normocephalic - Respiratory normal expansion, normal respiratory effort - Cardiovascular Cardiovascular exam: Present: RRR - Abdomen Abdomen: Present: bowel sounds present, soft - Integumentary no rash - Neurologic confused - Musculoskeletal normal posture - Labs 04/10/17 04:18 04/10/17 04:18 Diabetes panel 04/10/17 Range/Units 04:18 Sodium 138 (136-145) mEq/L Potassium 3.4 L (3.5-4.5) mEq/L Chloride 106 (98-109) mEq/L Carbon Dioxide 22 (19-29) mEq/L BUN 12 (7-20) mg/dL Creatinine 0.88 (0.57-1.11) mg/dL Glucose 212 H (70-99) mg/dL Calcium 9.2 (8.6-10.8) mg/dL Calcium panel 04/10/17 Range/Units 04:18 Calcium 9.2 (8.6-10.8) mg/dL Pituitary panel 04/10/17 Range/Units 04:18 Sodium 138 (136-145) mEq/L Potassium 3.4 L (3.5-4.5) mEq/L Chloride 106 (98-109) mEq/L Carbon Dioxide 22 (19-29) mEq/L BUN 12 (7-20) mg/dL Creatinine 0.88 (0.57-1.11) mg/dL Glucose 212 H (70-99) mg/dL Calcium 9.2 (8.6-10.8) mg/dL Adrenal panel 04/10/17 Range/Units 04:18 Sodium 138 (136-145) mEq/L Potassium 3.4 L (3.5-4.5) mEq/L Chloride 106 (98-109) mEq/L Carbon Dioxide 22 (19-29) mEq/L BUN 12 (7-20) mg/dL Creatinine 0.88 (0.57-1.11) mg/dL Glucose 212 H (70-99) mg/dL Calcium 9.2 (8.6-10.8) mg/dL - Attending Attestation I have personally performed a face to face evaluation on this patient. I have reviewed and agree with the care plan. History and Exam by me shows:
[2017-04-09] MEDS ORDERED: Piperacillin/Tazobactam 3.375 GM VIAL IVPB ONE (16:12)
[2017-04-09] MEDS ORDERED: *HR* LORazepam 2 MG/ML VIAL IVP PRN (17:52)
[2017-04-09] MEDS: Vancomycin 1,250 MG in D5% in Water 250 ML IVPB SCH (20:40)
[2017-04-09] MEDS: Acetaminophen 325 MG TABLET PO PRN (20:45)
--- NOTE | 2017-04-09 21:08 | Internal Med Progress Note ---
Date of Encounter: 04/09/17 Time of Encounter: 11:30 - Assessment and plan (1) Acute delirium Current Visit: Yes Status: Acute Assessment and plan: Acute Delirium: -She waxes and wanes currently, but much better than yesterday. -We will continue to address factors contributing to her delirium: - Infection: 04/07 blood cultures gram positive rods in 1 of 2 vials, possibly contaminated sample. Follow-up sensitivities. Repeat blood cultures. Follow-up urine cultures. Continue vanc/zosyn. - Enviornmental: Patient needs constant redirection to minimize delirium. Discussed with nursing and staff on redirection, increasing exposure to sunlight during day, minimizing excessive noise at night. - Pain: We will give Tylenol Q8H scheduled. She has a reported allergy to Tramadol. Morphine for pain control with any surgical procedure as needed. - Medication: Ativan is given with caution, only used for acute agitation. If Ativan is ineffective with acute agitation episode, will give a small dose of Seroquel. UTI: Follow-up urine cultures to de-escalate therapy based on blood and urine results. Cellulitis: Continue Vanc/Zosyn. Repeat blood cultures. Possible that blood cultures done on 04/07 may have been contaminate since grew in 1 of 2 samples. Discussed with pharmacy possibly switching to Unasyn. Hematoma of Left Leg: Based on her history in the past year, this is likely due to fall. Surgery on board, recs appreciated. She had debridement at bedside 04/08. Plan for wound care now and with outpatient follow-up as well. Superficial left saphenous vein thrombosis: Superficial, would not warrant anticoagulation at this time. Hypertension: Norvasc CAD: Chart indicates she has history of [place]. Also TIA. She is not on anti platelet therapy, she does have risk factors for bleeding. Given her current hematoma and age, it would be more harmful to give antiplatelet therapy. She has reported allergy to statin therapy. Carotid artery stenosis: Seen on carotid doppler 9 months ago. DVT Prophylaxis: She did have acute thrombus of saphenous vein. Currently contraindicated for anticoag since she is a fall risk and also with hematoma. Disposition: She was previously admitted on 06/2016 because of unilateral weakness. She has history of radial fracture and hip surgery. Neurology was consulted and it seemed most likely due to orthopedic conditions and not from a TIA/CVA. There were discussions with patient's daughter regarding unsafe for patient to be discharged home. At that time, family wanted to take care of her at home with help of home health care. She may need IV antibiotics at home depending on repeat labs. Also needs wound vac application. Noted that the patient and her daughters are not willing for her to discharge to SNF during this admission as well. They prefer home PT instead. PT/OT to evaluate. (2) Urinary tract infection Current Visit: Yes Status: Acute Qualifiers: Urinary tract infection type: site unspecified Hematuria presence: without hematuria Qualified Code(s): N39.0 - Urinary tract infection, site not specified (3) Cellulitis of left lower extremity Current Visit: Yes Status: Acute (4) Hematoma of left lower extremity Current Visit: Yes Status: Acute Assessment and plan: Qualifiers: Encounter type: initial encounter Qualified Code(s): S80.12XA - Contusion of left lower leg, initial encounter (5) Diabetes Current Visit: No Status: Chronic Qualifiers: Diabetes mellitus type: type 2 Diabetes mellitus complication status: without complication Diabetes mellitus intermediate manager insulin use: without intermediate manager use Qualified Code(s): E11.9 - Type 2 diabetes mellitus without complications (6) Hypothyroid Current Visit: No Status: Chronic Qualifiers: Hypothyroidism type: acquired Qualified Code(s): E03.9 - Hypothyroidism, unspecified (7) Hyperlipidemia Current Visit: No Status: Acute Qualifiers: Hyperlipidemia type: unspecified Qualified Code(s): E78.5 - Hyperlipidemia , unspecified (8) Thrombosis of saphenous vein Current Visit: Yes Status: Acute Qualifiers: Laterality: left Qualified Code(s): I82.812 - Embolism and thrombosis of superficial veins of left lower extremity - Subjective Interval history: Patient became acutely delirious yesterday evening. She required 1 mg IM Ativan when she lost her IV access from agitation. She was calm and overnight she did not have any issues since then. - Constitutional Vitals: Temp Pulse Resp BP Pulse Ox 98.7 F 67 18 142/62 95 04/09/17 19:07 04/09/17 19:07 04/09/17 19:07 04/09/17 19:07 04/09/17 19:07 General appearance: Present: A&O X 3, no acute distress, answers questions appropriately Internal Medicine: Result - Labs CBC & Chem 7: 04/09/17 07:44 04/09/17 07:44 - VTE Reasons for not Prescribing Prophylaxis: Medical contraindication Consult Discharge Plan - Plan Referrals: NONE,PCP [Primary Care Provider] -
[2017-04-09] MEDS: Acetaminophen 325 MG TABLET PO SCH (23:09)
[2017-04-10 04:33] LABS: Basophils # 0.1 K/mcL (0.0-0.2); Basophils % 0.6 %; Eosinophils # 0.3 K/mcL (0.0-0.6); Eosinophils % 2.5 %; Hematocrit 33.5 % (35.3-44.9); Hemoglobin 11.1 g/dL (11.5-15.4); Immature Granulocytes % 0.4 % (0-4); Lymphocytes # 3.4 K/mcL (0.6-4.6); Lymphocytes % 30.3 %; Mean Corpuscular HGB Conc 33.1 g/dL (31.6-35.5); Mean Corpuscular Hemoglobin 28.2 pg (28.0-33.3); Mean Platelet Volume 10.2 fL (9.4-12.4); Monocytes # 1.3 K/mcL (0.0-1.3); Monocytes % 11.6 %; Neutrophils # 6.1 K/mcL (1.6-8.9); Platelet Count 350 K/mcL (140-400); Red Blood Count 3.94 M/mcL (3.82-4.97); Red Cell Distribution Width 14.2 % (11.5-14.5); Segmented Neutrophils % 54.6 %
[2017-04-10 04:50] LABS: BUN/Creatinine Ratio 14 (6-26); Blood Urea Nitrogen 12 mg/dL (7-20); Calcium 9.2 mg/dL (8.6-10.8); Carbon Dioxide 22 mEq/L (19-29); Chloride 106 mEq/L (98-109); Glucose 212 mg/dL (70-99); Osmolality,Calculated 292 (280-300); Potassium 3.4 mEq/L (3.5-4.5); Sodium 138 mEq/L (136-145); eGFR For African Americans > 60 (> 60); eGFR For Non-African Americans > 60 (> 60)
[2017-04-10] MEDS: Cholecalciferol (D-3) 1,000 UNIT TABLET PO SCH (09:04)
[2017-04-10] MEDS: Furosemide 40 MG TABLET PO SCH (09:05)
[2017-04-10] MEDS: amLODIPine 5 MG TABLET PO SCH (09:05)
[2017-04-10] MEDS: Acetaminophen 325 MG TABLET PO SCH ×2 (09:07→18:19)
[2017-04-10] MEDS: Piperacillin/Tazobactam 3.375 GM in D5% in Water (Mini-Bag+) 100 ML IVPB SCH ×2 (09:11→18:19)
--- NOTE | 2017-04-10 13:50 | General Surgery Progress Note ---
<Kirstie Thomas - Last Filed: 04/10/17 14:13> Date of Encounter: 04/10/17 Time of Encounter: 13:49 - Assessment and Plan (1) Hematoma of left lower extremity Current Visit: Yes Status: Acute Pt resting in bed. Calm and cooperative. Daughter at bedside. Per daughter and bedside RN, family Dinorah meeting with primary team will be held this evening to discuss d/c planning. LLE wound beds are pink. surrounding margins are dark ( similar to previous assessment). Dressing change per bedside RN today. Plan: -wound care: Wet to dry dressing in the wound bed. Pack undermining in the margins with saline moistened kerlix. May replace outer dressing PRN when soaked. -She will need follow-up in wound care, with Dr. Bassett, for eventual transition to wound VAC. We will continue to follow along with you. Qualifiers: Encounter type: initial encounter Qualified Code(s): S80.12XA - Contusion of left lower leg, initial encounter (2) Delirium Current Visit: Yes Status: Acute Management per primary team (3) Physical deconditioning Current Visit: No Status: Acute Management per primary team; however, we did consult occupational and physical therapy given the large area of the left lower extremity which will require dressing changes, eventually a wound VAC, and likely to inhibit functionality. Patient with questionable falls at home as she is reluctant to provide history of how her left lower extremity when occurred. PT/OT recommendations pending. Per RN, likely recommend SNF at d/c Subjective Patient reports: no new complaints, feels better, still having pain, pain is less, tolerating liquids well, voiding w/o difficulty, afebrile Objective Vital Signs - Last 8 Hours Temp Pulse Resp BP Pulse Ox 04/10/17 12:02 97.7 F 63 14 116/66 97 04/10/17 11:40 76 16 126/72 97 04/10/17 08:57 97.5 F L 76 16 126/72 97 Intake and Output 04/09/17 04/10/17 04/10/17 23:59 07:59 15:59 Intake Total 590 / 590 100 / 100 240 / 240 Balance 590 / 590 100 / 100 240 / 240 Intake: IV Fluids 350 / 350 100 / 100 Zosyn 3.375 GM In Dextrose 5% ( 100 / 100 100 / 100 Minibag+) 100 ML 100 ML @ 25 mls/hr IVPB Q8HR ERIC Rx#: [id number] Vancocin 1,250 MG In Dextrose 5 250 / 250 % 250 ML @ 166.667 mls/hr IVPB Q24H ERIC Rx#:[id number] Oral 240 / 240 240 / 240 Other: Meal Dinner Breakfast Percent of Meal Consumed 100% 35% # Voids 1 Weight 74.3 kg Patient Weight 04/10/17 23:59 Weight 74.3 kg - General physical appearance well developed, well nourished, no distress - ENT atraumatic, normocephalic - Neck Neck exam: trachea midline, no venous distension - Respiratory normal expansion, normal respiratory effort, clear to auscultation - Cardiovascular Cardiovascular exam: Present: RRR - Abdomen Abdomen: Present: bowel sounds present, soft, non tender - Integumentary no rash, no growths - Neurologic normal sensation - Musculoskeletal normal posture, other (general deconditioning) - Psychiatric other (calm, cooperative, confused) - Labs 04/10/17 04:18 04/10/17 04:18 Diabetes panel 04/10/17 Range/Units 04:18 Sodium 138 (136-145) mEq/L Potassium 3.4 L (3.5-4.5) mEq/L Chloride 106 (98-109) mEq/L Carbon Dioxide 22 (19-29) mEq/L BUN 12 (7-20) mg/dL Creatinine 0.88 (0.57-1.11) mg/dL Glucose 212 H (70-99) mg/dL Calcium 9.2 (8.6-10.8) mg/dL Calcium panel 04/10/17 Range/Units 04:18 Calcium 9.2 (8.6-10.8) mg/dL Pituitary panel 04/10/17 Range/Units 04:18 Sodium 138 (136-145) mEq/L Potassium 3.4 L (3.5-4.5) mEq/L Chloride 106 (98-109) mEq/L Carbon Dioxide 22 (19-29) mEq/L BUN 12 (7-20) mg/dL Creatinine 0.88 (0.57-1.11) mg/dL Glucose 212 H (70-99) mg/dL Calcium 9.2 (8.6-10.8) mg/dL Adrenal panel 04/10/17 Range/Units 04:18 Sodium 138 (136-145) mEq/L Potassium 3.4 L (3.5-4.5) mEq/L Chloride 106 (98-109) mEq/L Carbon Dioxide 22 (19-29) mEq/L BUN 12 (7-20) mg/dL Creatinine 0.88 (0.57-1.11) mg/dL Glucose 212 H (70-99) mg/dL Calcium 9.2 (8.6-10.8) mg/dL - VTE Reasons for not Prescribing Prophylaxis: Medical contraindication Consult Discharge Plan - Plan Additional Instructions: DAILY WOUND CARE: Remove dressing. Irrigate with sterile normal saline. Repack the lateral and medial margin tunneling with saline gauze. Cover with ABD. Cover with Kerlix. Referrals: Margo Bassett MD [Partnered Physician] - 04/18/17 8:45 am (Follow-up with Dr. Bassett in Wound Care on 04/18/2017 at 8:45 am) NONE,PCP [Primary Care Provider] - <Margo Bassett - Last Filed: 04/11/17 13:09> Date of Encounter: 04/10/17 - Assessment and Plan (1) Cellulitis Current Visit: Yes Status: Acute improved, no further evidence Qualifiers: Site of cellulitis: extremity Site of cellulitis of extremity: lower extremity Laterality: left Qualified Code(s): L03.116 - Cellulitis of left lower limb (2) Hematoma of left lower extremity Current Visit: Yes Status: Acute continue daily dressing changes if patient goes home with daughter will need daily home care for dressing changes, if DC to SNF then dressing changes can be done by the nurses will have pt see me in followup in wound care Qualifiers: Encounter type: initial encounter Qualified Code(s): S80.12XA - Contusion of left lower leg, initial encounter (3) Leukocytosis Current Visit: Yes Status: Acute Qualifiers: Leukocytosis type: unspecified Qualified Code(s): D72.829 - Elevated white blood cell count, unspecified Subjective Patient reports: feels better, still having pain, pain is less Objective Vital Signs - Last 8 Hours Temp Pulse Resp BP Pulse Ox 04/11/17 11:22 99.1 F 64 14 120/74 96 04/11/17 07:48 98.0 F 69 14 147/70 95 Intake and Output 04/10/17 04/11/17 04/11/17 23:59 07:59 15:59 Intake Total 100 / 100 350 / 350 250 / 250 Output Total 400 / 400 Balance -300 / -300 350 / 350 250 / 250 Intake: IV Fluids 100 / 100 350 / 350 Zosyn 3.375 GM In Dextrose 5% ( 100 / 100 100 / 100 Minibag+) 100 ML 100 ML @ 25 mls/hr IVPB Q8HR ERIC Rx#: [id number] Vancocin 1,500 MG In Dextrose 5 250 / 250 % 250 ML @ 166.67 mls/hr IVPB Q24H ERIC Rx#:[id number] Oral 250 / 250 Output: Urine 400 / 400 Other: Meal Breakfast Percent of Meal Consumed 80% Stool Size Large Stool Consistency soft Stool Color Brown # Voids 1 # Bowel Movements 1 Weight 75.4 kg Patient Weight 04/11/17 23:59 Weight 75.4 kg - General physical appearance well nourished, no distress - Eyes normal ocular movement - ENT normal mucosa, normocephalic - Neck Neck exam: trachea midline - Respiratory normal expansion, normal respiratory effort - Cardiovascular Cardiovascular exam: Present: RRR - Integumentary no rash, no growths - Neurologic normal sensation - Musculoskeletal other - Psychiatric oriented to person - Labs 04/11/17 02:50 04/11/17 02:50 Diabetes panel 04/11/17 Range/Units 02:50 Sodium 139 (136-145) mEq/L Potassium 3.9 (3.5-4.5) mEq/L Chloride 108 (98-109) mEq/L Carbon Dioxide 23 (19-29) mEq/L BUN 13 (7-20) mg/dL Creatinine 0.91 (0.57-1.11) mg/dL Glucose 168 H (70-99) mg/dL Calcium 9.5 (8.6-10.8) mg/dL Calcium panel 04/11/17 Range/Units 02:50 Calcium 9.5 (8.6-10.8) mg/dL Pituitary panel 04/11/17 Range/Units 02:50 Sodium 139 (136-145) mEq/L Potassium 3.9 (3.5-4.5) mEq/L Chloride 108 (98-109) mEq/L Carbon Dioxide 23 (19-29) mEq/L BUN 13 (7-20) mg/dL Creatinine 0.91 (0.57-1.11) mg/dL Glucose 168 H (70-99) mg/dL Calcium 9.5 (8.6-10.8) mg/dL Adrenal panel 04/11/17 Range/Units 02:50 Sodium 139 (136-145) mEq/L Potassium 3.9 (3.5-4.5) mEq/L Chloride 108 (98-109) mEq/L Carbon Dioxide 23 (19-29) mEq/L BUN 13 (7-20) mg/dL Creatinine 0.91 (0.57-1.11) mg/dL Glucose 168 H (70-99) mg/dL Calcium 9.5 (8.6-10.8) mg/dL - Attending Attestation I have personally performed a face to face evaluation on this patient. I have reviewed and agree with the care plan. History and Exam by me shows:
[2017-04-10] MEDS: *HR* Morphine 2 MG/ML SYRINGE IVP PRN ×2 (14:33→20:56)
[2017-04-10] MEDS: Vancomycin 1,500 MG in D5% in Water 250 ML IVPB SCH (21:56)
[2017-04-10] MEDS: Vancomycin 1,250 MG in D5% in Water 250 ML IVPB SCH (22:16)
--- NOTE | 2017-04-10 23:26 | Internal Med Progress Note ---
Date of Encounter: 04/10/17 Time of Encounter: 16:32 - Assessment and plan (1) Hematoma of left lower extremity Current Visit: Yes Status: Acute Assessment and plan: Disposition: She was previously admitted on 06/2016 because of unilateral weakness. She has history of radial fracture from fall. Neurology was consulted in June and it seemed most likely due to orthopedic conditions and not neurological. Per records, there were discussions with patient's daughter safety concerns if she was to be discharged home. At that time family decided to discharge her home with [facility] instead. Patient is weak and a lot of function has been lost over several months because of chronic knee pain. She has been at home with PT and still ongoing weakness. I have reiterated to patient and daughters that discharge to home is not a safe , even with home PT. During this admission she requires two people to assist her to ambulate. We had in depth discussion that these needs simply cannot be met at home. The patient has been open to SNF/ECF, daughters are more reluctant because of past experiences. A list of possible facilities will be given to /[facility] to seek if any are approved. We discussed that there may be only few facilities that are accepted by her insurance. Acute Delirium: On 04/08 had acute episode. No episodes since then. Continue to redirect patient to prevent further episodes. -We will continue to address factors contributing to her delirium: - Infection: 04/07 blood cultures gram positive rods in 1 of 2 vials, possibly contaminated sample. Follow-up sensitivities. Repeat blood cultures. Follow-up urine cultures. Continue vanc/zosyn. - Enviornmental: Patient needs constant redirection to minimize delirium. Discussed with nursing and staff on redirection, increasing exposure to sunlight during day, minimizing excessive noise at night. - Pain: We will give Tylenol Q8H scheduled. She has a reported allergy to Tramadol. Morphine for pain control with any surgical procedure as needed. - Medication: Ativan is given with caution, only used for acute agitation. If Ativan is ineffective with acute agitation episode, will give a small dose of Seroquel. UTI: Continue Vanc/Zosyn Cellulitis: Continue Vanc/Zosyn. Possible that blood cultures done on 04/06 may have been contaminate since grew in 1 of 2 samples. Hematoma of Left Leg: Based on her history in the past year, this is likely due to fall. Patient is unsure where injury came from. Surgery on board, recs appreciated. She had debridement at bedside 04/08. Plan for wound care now and with outpatient follow-up as well. Superficial left saphenous vein thrombosis: Superficial thrombus, would not warrant anticoagulation. Hypertension: Norvasc CAD: Chart indicates she has history of [place]. Also TIA. She is not on anti platelet therapy, she does have risk factors for bleeding. Given her current hematoma and age, it would be more harmful to give antiplatelet therapy. She has reported allergy to statin therapy. Carotid artery stenosis: Seen on carotid doppler 9 months ago. DVT Prophylaxis: She did have acute thrombus of saphenous vein. Currently contraindicated for anticoag since she is a fall risk and also with hematoma. Qualifiers: Encounter type: initial encounter Qualified Code(s): S80.12XA - Contusion of left lower leg, initial encounter (2) Cellulitis of left lower extremity Current Visit: Yes Status: Acute (3) Acute delirium Current Visit: Yes Status: Acute (4) Urinary tract infection Current Visit: Yes Status: Acute Qualifiers: Urinary tract infection type: site unspecified Hematuria presence: without hematuria Qualified Code(s): N39.0 - Urinary tract infection, site not specified (5) Diabetes Current Visit: No Status: Chronic Qualifiers: Diabetes mellitus type: type 2 Diabetes mellitus complication status: without complication Diabetes mellitus prison insulin use: without bed bug exterminator use Qualified Code(s): E11.9 - Type 2 diabetes mellitus without complications (6) Hypothyroid Current Visit: No Status: Chronic Qualifiers: Hypothyroidism type: acquired Qualified Code(s): E03.9 - Hypothyroidism, unspecified (7) Hyperlipidemia Current Visit: No Status: Acute Qualifiers: Hyperlipidemia type: unspecified Qualified Code(s): E78.5 - Hyperlipidemia , unspecified (8) Thrombosis of saphenous vein Current Visit: Yes Status: Acute Qualifiers: Laterality: left Qualified Code(s): I82.812 - Embolism and thrombosis of superficial veins of left lower extremity - Subjective Interval history: Both daughters present at bedside. Patient complains of left leg relatively unchanged. She declined morphine during my encounter. She denies fevers/chills , n/v, decreased appetite. - Constitutional Vitals: Temp Pulse Resp BP Pulse Ox 98.4 F 70 16 169/7 96 04/10/17 23:18 04/10/17 23:18 04/10/17 23:18 04/10/17 23:18 04/10/17 23:18 General appearance: Present: A&O X 3, no acute distress, answers questions appropriately Exam: General appearance: Present: A&O X 2 (person, place), no acute distress, answers questions appropriately - Head Head exam: Present: atraumatic, normocephalic - Eye Eye exam: Present: PERRL, conjuntiva pink, sclera anicteric Pupils: Present: PERRL - Neck Neck exam general surgery: Present: supple, trachea midline. Absent: lymphadenopathy - Respiratory Respiratory exam: Present: CTAB. Absent: accessory muscle use, rales, rhonchi, wheezes - Cardiovascular Cardiovascular exam: Present: RRR, +S1, +S2. Absent: diastolic murmur, gallop, rubs, systolic murmur - GI/Abdominal GI/Abdominal exam: Present: normal bowel sounds, soft, no peritoneal signs. Absent: distended, tenderness - Extremities Exam Extremities exam: Present: warm, radial pulses palpable and symmetrical. Absent : calf tenderness, cyanotic, pedal edema Additional comments: Left lower leg erythema is minimal , clean dressing on wound with no purulent drainage and no active bleeding. No leg edema. - Neurological Exam Neurological exam: Present: CN II-XII intact, oriented X3, no focal deficits. Absent: pronater drift, facial droop, speech deficit - Skin Skin exam: Present: dry, intact Internal Medicine: Result - Labs CBC & Chem 7: 04/10/17 04:18 04/10/17 04:18 Labs: Short CBC 04/10/17 Range/Units 04:18 WBC 11.1 (4.3-11.1) K/mcL Hgb 11.1 L (11.5-15.4) g/dL Hct 33.5 L (35.3-44.9) % Plt Count 350 (140-400) K/mcL Neutrophils # 6.1 (1.6-8.9) K/mcL BMP 04/10/17 04:18 Sodium 138 Potassium 3.4 L Chloride 106 Carbon Dioxide 22 BUN 12 Creatinine 0.88 Glucose 212 H Calcium 9.2 - VTE Reasons for not Prescribing Prophylaxis: Medical contraindication Consult Discharge Plan - Plan Referrals: NONE,PCP [Primary Care Provider] -
[2017-04-11] MEDS: Acetaminophen 325 MG TABLET PO SCH ×3 (02:15→17:12)
[2017-04-11] MEDS: Piperacillin/Tazobactam 3.375 GM in D5% in Water (Mini-Bag+) 100 ML IVPB SCH ×3 (02:17→17:13)
[2017-04-11 03:35] LABS: Basophils # 0.1 K/mcL (0.0-0.2); Basophils % 0.9 %; Eosinophils # 0.3 K/mcL (0.0-0.6); Hematocrit 34.9 % (35.3-44.9); Hemoglobin 11.3 g/dL (11.5-15.4); Immature Granulocytes % 0.3 % (0-4); Lymphocytes # 2.9 K/mcL (0.6-4.6); Lymphocytes % 27.6 %; Mean Corpuscular HGB Conc 32.4 g/dL (31.6-35.5); Mean Corpuscular Hemoglobin 27.9 pg (28.0-33.3); Mean Corpuscular Volume 86.2 fL (83.0-100.0); Mean Platelet Volume 10.7 fL (9.4-12.4); Monocytes # 1.2 K/mcL (0.0-1.3); Monocytes % 11.2 %; Platelet Count 388 K/mcL (140-400); Red Blood Count 4.05 M/mcL (3.82-4.97); Red Cell Distribution Width 14.1 % (11.5-14.5)
[2017-04-11 03:48] LABS: BUN/Creatinine Ratio 14 (6-26); Blood Urea Nitrogen 13 mg/dL (7-20); Calcium 9.5 mg/dL (8.6-10.8); Carbon Dioxide 23 mEq/L (19-29); Chloride 108 mEq/L (98-109); Glucose 168 mg/dL (70-99); Osmolality,Calculated 292 (280-300); Potassium 3.9 mEq/L (3.5-4.5); Sodium 139 mEq/L (136-145); eGFR For African Americans > 60 (> 60); eGFR For Non-African Americans 59 (> 60)
[2017-04-11] MEDS: amLODIPine 5 MG TABLET PO SCH (09:17)
[2017-04-11] MEDS: Furosemide 40 MG TABLET PO SCH (09:17)
[2017-04-11] MEDS: Cholecalciferol (D-3) 1,000 UNIT TABLET PO SCH (09:18)
--- NOTE | 2017-04-11 10:09 | General Surgery Progress Note ---
Date of Encounter: 04/11/17 Time of Encounter: 10:07 - Assessment and Plan (1) Hematoma of left lower extremity Current Visit: Yes Status: Acute Sitting in chair at bedside. Cassy is confused this a.m. and verbally combative. Both daughters are at bedside. Left lower extremity wound dressing changed. Wound beds with granulation tissue and some new eschar formation as was previously discussed a possibility d/t undermining of the margins. There are no signs or symptoms of infection noted. Per daughters they would prefer patient be discharged home with home health. Reeducated daughters that home health is often not able to come to the home for dressing changes every day, and that the main concern would be safety for Cassy as she is not supervised 24 hours per day, had an unknown/unwitnessed fall leading to the admission's hematoma, and PT/OT recommendations. Daughters state they will discuss discharge planning with social workers in the primary medicine doctor. Plan: -Daily wound care: outer dressing. Moisten packing with saline. Remove packing. Irrigate the wound beds with sterile saline. Repack with saline gauze in the undermining margins. Lay saline gauze in the wound beds. Cover with ABD's. Wrap with Kerlix. Tape to secure. -She will need follow-up in wound care, with Dr. Bassett, for eventual transition to wound VAC (See d/c plan for appointment time). Surgery will sign off at this time. Please re-consult if questions or needs arise. Thank you for allowing us to participate in this [place]'s care. Qualifiers: Encounter type: initial encounter Qualified Code(s): S80.12XA - Contusion of left lower leg, initial encounter (2) Delirium Current Visit: Yes Status: Acute Management per primary team; Confused and verbally combative today. (3) Physical deconditioning Current Visit: No Status: Acute Management per primary team; however, we did consult occupational and physical therapy given the large area of the left lower extremity which will require dressing changes, eventually a wound VAC, and likely to inhibit functionality. Patient with questionable falls at home as she is reluctant to provide history of how her left lower extremity when occurred. PT/OT recommend SNF at d/c. See hematoma plan for further detail Subjective Narrative: Sitting in error at bedside. Both daughters are present. She is confused. Unable to obtain subjective information. Objective Vital Signs - Last 8 Hours Temp Pulse Resp BP Pulse Ox 04/11/17 07:48 98.0 F 69 14 147/70 95 04/11/17 03:50 98.3 F 61 16 146/70 95 Intake and Output 04/10/17 04/11/17 04/11/17 23:59 07:59 15:59 Intake Total 100 / 100 350 / 350 250 / 250 Output Total 400 / 400 Balance -300 / -300 350 / 350 250 / 250 Intake: IV Fluids 100 / 100 350 / 350 Zosyn 3.375 GM In Dextrose 5% ( 100 / 100 100 / 100 Minibag+) 100 ML 100 ML @ 25 mls/hr IVPB Q8HR ERIC Rx#: [id number] Vancocin 1,500 MG In Dextrose 5 250 / 250 % 250 ML @ 166.67 mls/hr IVPB Q24H ERIC Rx#:[id number] Oral 250 / 250 Output: Urine 400 / 400 Other: Meal Breakfast Percent of Meal Consumed 80% # Voids 1 Weight 75.4 kg Patient Weight 04/11/17 23:59 Weight 75.4 kg - General physical appearance no distress - Eyes normal ocular movement - ENT atraumatic, normocephalic - Neck Neck exam: trachea midline - Respiratory normal expansion, normal respiratory effort, clear to auscultation - Cardiovascular Cardiovascular exam: Present: RRR - Abdomen Abdomen: Present: bowel sounds present, soft, non tender - Incision Incision: Present: open (Left lower extremity wound with mixed granulation tissue and eschar formation. No signs or symptoms of infection noted.) - Integumentary other (See wound assessment above) - Neurologic normal sensation, combative, confused - Musculoskeletal normal posture - Psychiatric speech is normal - Labs 04/11/17 02:50 04/11/17 02:50 Diabetes panel 04/11/17 Range/Units 02:50 Sodium 139 (136-145) mEq/L Potassium 3.9 (3.5-4.5) mEq/L Chloride 108 (98-109) mEq/L Carbon Dioxide 23 (19-29) mEq/L BUN 13 (7-20) mg/dL Creatinine 0.91 (0.57-1.11) mg/dL Glucose 168 H (70-99) mg/dL Calcium 9.5 (8.6-10.8) mg/dL Calcium panel 04/11/17 Range/Units 02:50 Calcium 9.5 (8.6-10.8) mg/dL Pituitary panel 04/11/17 Range/Units 02:50 Sodium 139 (136-145) mEq/L Potassium 3.9 (3.5-4.5) mEq/L Chloride 108 (98-109) mEq/L Carbon Dioxide 23 (19-29) mEq/L BUN 13 (7-20) mg/dL Creatinine 0.91 (0.57-1.11) mg/dL Glucose 168 H (70-99) mg/dL Calcium 9.5 (8.6-10.8) mg/dL Adrenal panel 04/11/17 Range/Units 02:50 Sodium 139 (136-145) mEq/L Potassium 3.9 (3.5-4.5) mEq/L Chloride 108 (98-109) mEq/L Carbon Dioxide 23 (19-29) mEq/L BUN 13 (7-20) mg/dL Creatinine 0.91 (0.57-1.11) mg/dL Glucose 168 H (70-99) mg/dL Calcium 9.5 (8.6-10.8) mg/dL - VTE Reasons for not Prescribing Prophylaxis: Medical contraindication Consult Discharge Plan - Plan Additional Instructions: DAILY WOUND CARE: Remove dressing. Irrigate with sterile normal saline. Repack the lateral and medial margin tunneling with saline gauze. Cover with ABD. Cover with Kerlix. Referrals: NONE,PCP [Primary Care Provider] - Margo Bassett MD [Partnered Physician] - 04/18/17 8:45 am (Follow-up with Dr. Bassett in Wound Care on 04/18/2017 at 8:45 am)
--- NOTE | 2017-04-11 20:28 | Internal Med Progress Note ---
Date of Encounter: 04/11/17 Time of Encounter: 09:00 - Assessment and plan (1) Hematoma of left lower extremity Current Visit: Yes Status: Acute Assessment and plan: Disposition: She was previously admitted on 06/2016 because of unilateral weakness. She has history of radial fracture from fall. Neurology was consulted in June and it seemed most likely due to orthopedic conditions and not neurological. Per records, there were discussions with patient's daughter safety concerns if she was to be discharged home. At that time family decided to discharge her home with HHC instead. Patient is weak and a lot of function has been lost over several months because of chronic knee pain. She has been at home with PT and still ongoing weakness. I have reiterated to patient and daughters that discharge to home is not a safe , even with home PT. During this admission she requires two people to assist her to ambulate. We had in depth discussion that these needs simply cannot be met at home. The patient has been open to SNF/ECF, daughters are more reluctant because of past experiences. Family is looking into HHC vs ECF. Has been heavily suggested to both daughters that the level of care she requires may not be suitable for home. Acute Delirium: On 04/08 had acute episode. 04/11: noted to be more confused this AM and slightly paranoid. Not combative currently but does exhibit delusional thoughts. Continue to redirect patient to prevent further episodes. -We will continue to address factors contributing to her delirium: - Infection: Continue vanc/zosyn. - Enviornmental: Patient needs constant redirection to minimize delirium. Discussed with nursing and staff on redirection, increasing exposure to sunlight during day, minimizing excessive noise at night. - Pain: We will give Tylenol Q8H scheduled. She has a listed allergy to Tramadol. Morphine for pain control with any surgical procedure as needed. - Medication: Ativan is given with caution, only used for acute agitation. If Ativan is ineffective with acute agitation episode, will give a small dose of Seroquel. UTI: Continue Vanc/Zosyn Cellulitis: Continue Vanc/Zosyn. Possible that blood cultures done on 04/06 may have been contaminate since grew in 1 of 2 samples. Hematoma of Left Leg: Based on her history in the past year, this is likely due to fall. Patient is unsure where injury came from. Wound managed by Wound Care. Superficial left saphenous vein thrombosis: Superficial thrombus, would not warrant anticoagulation. Hypertension: Norvasc CAD: Chart indicates she has history of ND. Also TIA. She is not on anti platelet therapy, she does have risk factors for bleeding. Given her current hematoma and age, it would be more harmful to give antiplatelet therapy. She has reported allergy to statin therapy. Carotid artery stenosis: Seen on carotid doppler 9 months ago. DVT Prophylaxis: She did have acute thrombus of saphenous vein. Currently contraindicated for anticoag since she is a fall risk and also with hematoma. Qualifiers: Encounter type: initial encounter Qualified Code(s): S80.12XA - Contusion of left lower leg, initial encounter (2) Cellulitis of left lower extremity Current Visit: Yes Status: Acute (3) Acute delirium Current Visit: Yes Status: Acute (4) Urinary tract infection Current Visit: Yes Status: Acute Qualifiers: Urinary tract infection type: site unspecified Hematuria presence: without hematuria Qualified Code(s): N39.0 - Urinary tract infection, site not specified (5) Diabetes Current Visit: No Status: Chronic Qualifiers: Diabetes mellitus type: type 2 Diabetes mellitus complication status: without complication Diabetes mellitus assisted insulin use: without marine oil terminal superintendent use Qualified Code(s): E11.9 - Type 2 diabetes mellitus without complications (6) Hypothyroid Current Visit: No Status: Chronic Qualifiers: Hypothyroidism type: acquired Qualified Code(s): E03.9 - Hypothyroidism, unspecified (7) Hyperlipidemia Current Visit: No Status: Acute Qualifiers: Hyperlipidemia type: unspecified Qualified Code(s): E78.5 - Hyperlipidemia , unspecified (8) Thrombosis of saphenous vein Current Visit: Yes Status: Acute Qualifiers: Laterality: left Qualified Code(s): I82.812 - Embolism and thrombosis of superficial veins of left lower extremity - Subjective Interval history: Both daughters present at bedside. Patient complains of left leg relatively unchanged. She kicked out assistant professor of nursing from room, states they are plotting against her. Per nursing, it still takes 2 assistants for her to ambulate. - Constitutional Vitals: Temp Pulse Resp BP Pulse Ox 97.4 F L 70 18 144/73 97 04/11/17 19:34 04/11/17 19:34 04/11/17 19:34 04/11/17 19:34 04/11/17 19:34 Exam: Gen: NAD, oriented to person, place. Not aware of time or situation. CVS: RRR Lungs: CTAB Abd: NT/ND Ext: left foot in new dressing, c/d/i Both lower extremities are without edema. Internal Medicine: Result - Labs CBC & Chem 7: 04/11/17 02:50 04/11/17 02:50 Labs: Short CBC 04/11/17 Range/Units 02:50 WBC 10.5 (4.3-11.1) K/mcL Hgb 11.3 L (11.5-15.4) g/dL Hct 34.9 L (35.3-44.9) % Plt Count 388 (140-400) K/mcL Neutrophils # 6.0 (1.6-8.9) K/mcL BMP 04/11/17 02:50 Sodium 139 Potassium 3.9 Chloride 108 Carbon Dioxide 23 BUN 13 Creatinine 0.91 Glucose 168 H Calcium 9.5 - VTE Reasons for not Prescribing Prophylaxis: Medical contraindication Consult Discharge Plan - Plan Additional Instructions: DAILY WOUND CARE: Remove dressing. Irrigate with sterile normal saline. Repack the lateral and medial margin tunneling with saline gauze. Cover with ABD. Cover with Kerlix. Referrals: Margo Bassett MD [Partnered Physician] - 04/18/17 8:45 am (Follow-up with Dr. Bassett in Wound Care on 04/18/2017 at 8:45 am) NONE,PCP [Primary Care Provider] -
[2017-04-11] MEDS: Vancomycin 1,500 MG in D5% in Water 250 ML IVPB SCH (23:58)
[2017-04-12] MEDS: Acetaminophen 325 MG TABLET PO SCH ×3 (00:05→17:20)
[2017-04-12 01:40] LABS: Basophils # 0.1 K/mcL (0.0-0.2); Basophils % 0.6 %; Eosinophils # 0.4 K/mcL (0.0-0.6); Eosinophils % 3.1 %; Hematocrit 35.8 % (35.3-44.9); Immature Granulocytes % 0.4 % (0-4); Immature Platelets 3.5 % (1.1-6.1); Mean Corpuscular HGB Conc 33.5 g/dL (31.6-35.5); Mean Corpuscular Hemoglobin 28.6 pg (28.0-33.3); Mean Corpuscular Volume 85.4 fL (83.0-100.0); Mean Platelet Volume 10.1 fL (9.4-12.4); Monocytes # 1.2 K/mcL (0.0-1.3); Monocytes % 10.5 %; Neutrophils # 6.5 K/mcL (1.6-8.9); Platelet Count 447 K/mcL (140-400); Red Blood Count 4.19 M/mcL (3.82-4.97); Segmented Neutrophils % 58.4 %
[2017-04-12 01:53] LABS: BUN/Creatinine Ratio 14 (6-26); Blood Urea Nitrogen 13 mg/dL (7-20); Calcium 9.9 mg/dL (8.6-10.8); Carbon Dioxide 24 mEq/L (19-29); Chloride 105 mEq/L (98-109); Glucose 227 mg/dL (70-99); Osmolality,Calculated 293 (280-300); Potassium 3.7 mEq/L (3.5-4.5); Sodium 138 mEq/L (136-145); eGFR For African Americans > 60 (> 60); eGFR For Non-African Americans 58 (> 60)
[2017-04-12] MEDS: Piperacillin/Tazobactam 3.375 GM in D5% in Water (Mini-Bag+) 100 ML IVPB SCH ×3 (01:55→17:21)
[2017-04-12] MEDS: amLODIPine 5 MG TABLET PO SCH (04:19)
[2017-04-12] MEDS ORDERED: *HR* LORazepam 0.5 MG TABLET PO ONE (04:22)
[2017-04-12] MEDS: Furosemide 40 MG TABLET PO SCH (09:31)
[2017-04-12] MEDS: Cholecalciferol (D-3) 1,000 UNIT TABLET PO SCH (09:32)
[2017-04-12 10:50] LABS: Hemoglobin A1C 6.4 %
[2017-04-12] MEDS: Insulin LISPRO 300 UNITS/3 ML VIAL SQ SCH ×2 (12:36→17:20)
[2017-04-12] MEDS: Vancomycin 1,500 MG in D5% in Water 250 ML IVPB SCH (22:16)
[2017-04-13] MEDS: Acetaminophen 325 MG TABLET PO SCH ×4 (00:28→23:57)
[2017-04-13] MEDS: Piperacillin/Tazobactam 3.375 GM in D5% in Water (Mini-Bag+) 100 ML IVPB SCH ×4 (00:31→23:58)
[2017-04-13 05:33] LABS: Basophils # 0.1 K/mcL (0.0-0.2); Basophils % 0.7 %; Eosinophils # 0.4 K/mcL (0.0-0.6); Eosinophils % 4.2 %; Hematocrit 33.1 % (35.3-44.9); Hemoglobin 10.7 g/dL (11.5-15.4); Immature Granulocytes % 0.4 % (0-4); Lymphocytes # 2.9 K/mcL (0.6-4.6); Lymphocytes % 27.7 %; Mean Corpuscular HGB Conc 32.3 g/dL (31.6-35.5); Mean Corpuscular Hemoglobin 28.2 pg (28.0-33.3); Mean Corpuscular Volume 87.3 fL (83.0-100.0); Mean Platelet Volume 10.4 fL (9.4-12.4); Monocytes # 1.1 K/mcL (0.0-1.3); Monocytes % 10.8 %; Neutrophils # 5.9 K/mcL (1.6-8.9); Platelet Count 416 K/mcL (140-400); Red Blood Count 3.79 M/mcL (3.82-4.97); Red Cell Distribution Width 14.3 % (11.5-14.5); Segmented Neutrophils % 56.2 %
[2017-04-13 06:01] LABS: Calcium 9.6 mg/dL (8.6-10.8); Potassium 4.1 mEq/L (3.5-4.5)
[2017-04-13] MEDS: Insulin LISPRO 300 UNITS/3 ML VIAL SQ SCH ×3 (08:49→17:45)
[2017-04-13] MEDS: Cholecalciferol (D-3) 1,000 UNIT TABLET PO SCH (08:49)
[2017-04-13] MEDS: Furosemide 40 MG TABLET PO SCH (08:49)
[2017-04-13] MEDS: amLODIPine 5 MG TABLET PO SCH (08:50)
[2017-04-13] MEDS: Vancomycin 1,500 MG in D5% in Water 250 ML IVPB SCH (21:45)
[2017-04-14] MEDS ORDERED: *HR* LORazepam 0.5 MG TABLET PO ONE (03:50)
[2017-04-14] MEDS ORDERED: Ziprasidone injection 20 MG/ML VIAL IM ONE (04:52)
--- NOTE | 2017-04-14 08:00 | Internal Med Progress Note ---
Date of Encounter: 04/12/17 Time of Encounter: 07:58 - Assessment and plan (1) Hematoma of left lower extremity Current Visit: Yes Status: Acute Assessment and plan: Dispo: has weakness requiring two assistants to get up and use bathroom and ambulate. Should go to ECF. Daughters debating home vs ECF. Lengthy discussion about this for several days. Family will choose today and we will arrange with CM. Ready to be managed as outpatient. Qualifiers: Encounter type: initial encounter Qualified Code(s): S80.12XA - Contusion of left lower leg, initial encounter (2) Cellulitis of left lower extremity Current Visit: Yes Status: Acute Assessment and plan: Continue Vanc/Zosyn (3) Acute delirium Current Visit: Yes Status: Resolved Assessment and plan: Resolved, continue precautions to prevent (4) Urinary tract infection Current Visit: Yes Status: Acute Qualifiers: Urinary tract infection type: site unspecified Hematuria presence: without hematuria Qualified Code(s): N39.0 - Urinary tract infection, site not specified (5) Diabetes Current Visit: No Status: Chronic Qualifiers: Diabetes mellitus type: type 2 Diabetes mellitus complication status: without complication Diabetes mellitus long-term insulin use: without termination clerk use Qualified Code(s): E11.9 - Type 2 diabetes mellitus without complications (6) Hypothyroid Current Visit: No Status: Chronic Qualifiers: Hypothyroidism type: acquired Qualified Code(s): E03.9 - Hypothyroidism, unspecified (7) Hyperlipidemia Current Visit: No Status: Acute Qualifiers: Hyperlipidemia type: unspecified Qualified Code(s): E78.5 - Hyperlipidemia , unspecified (8) Thrombosis of saphenous vein Current Visit: Yes Status: Acute Qualifiers: Laterality: left Qualified Code(s): I82.812 - Embolism and thrombosis of superficial veins of left lower extremity - Subjective Interval history: Note patient was seen and examined on 04/12/17 Both daughters present at bedside. No acute issues - Constitutional Vitals: Temp Pulse Resp BP Pulse Ox 97.6 F 76 15 120/66 93 04/14/17 05:28 04/14/17 05:28 04/14/17 05:28 04/14/17 05:28 04/14/17 05:28 General appearance: Present: A&O X 3, no acute distress, answers questions appropriately Exam: Gen: NAD, aaox2 CVS: rrr Lungs ctab abd: nt/nd ext right wound dressing clean Internal Medicine: Result - Labs CBC & Chem 7: 04/13/17 05:09 04/13/17 05:09 - VTE Reasons for not Prescribing Prophylaxis: Medical contraindication Consult Discharge Plan - Plan Additional Instructions: DAILY WOUND CARE: Remove dressing. Irrigate with sterile normal saline. Repack the lateral and medial margin tunneling with saline gauze. Cover with ABD. Cover with Kerlix. Referrals: Margo Bassett MD [Partnered Physician] - 04/18/17 8:45 am (Follow-up with Dr. Bassett in Wound Care on 04/18/2017 at 8:45 am) NONE,PCP [Primary Care Provider] -
--- NOTE | 2017-04-14 08:05 | Internal Med Progress Note ---
Date of Encounter: 04/13/17 Time of Encounter: 08:03 - Assessment and plan (1) Hematoma of left lower extremity Current Visit: Yes Status: Acute Assessment and plan: Dispo: has weakness requiring two assistants to get up and use bathroom and ambulate. Should go to ECF per PT/OT. Today is weekend. Daughters debating home vs ECF. Lengthy discussion about this for several days. Family will choose tomorrow and we will arrange with CM. Ready to be managed as outpatient. Qualifiers: Encounter type: initial encounter Qualified Code(s): S80.12XA - Contusion of left lower leg, initial encounter (2) Cellulitis of left lower extremity Current Visit: Yes Status: Acute (3) Acute delirium Current Visit: Yes Status: Resolved (4) Urinary tract infection Current Visit: Yes Status: Acute Qualifiers: Urinary tract infection type: site unspecified Hematuria presence: without hematuria Qualified Code(s): N39.0 - Urinary tract infection, site not specified (5) Diabetes Current Visit: No Status: Chronic Qualifiers: Diabetes mellitus type: type 2 Diabetes mellitus complication status: without complication Diabetes mellitus [facility] insulin use: without intermodal truck driver use Qualified Code(s): E11.9 - Type 2 diabetes mellitus without complications (6) Hypothyroid Current Visit: No Status: Chronic Qualifiers: Hypothyroidism type: acquired Qualified Code(s): E03.9 - Hypothyroidism, unspecified (7) Hyperlipidemia Current Visit: No Status: Acute Qualifiers: Hyperlipidemia type: unspecified Qualified Code(s): E78.5 - Hyperlipidemia , unspecified (8) Thrombosis of saphenous vein Current Visit: Yes Status: Acute Qualifiers: Laterality: left Qualified Code(s): I82.812 - Embolism and thrombosis of superficial veins of left lower extremity - Subjective Interval history: Note patient was seen and examined on 04/12/17 Both daughters present at bedside. No acute events. Patient can lift left leg higher and pain improved. States she is weak and afraid to get out of bed. - Constitutional Vitals: Temp Pulse Resp BP Pulse Ox 97.6 F 76 15 120/66 93 04/14/17 05:28 04/14/17 05:28 04/14/17 05:28 04/14/17 05:28 04/14/17 05:28 General appearance: Present: A&O X 3, no acute distress, answers questions appropriately Exam: Gen, NAD aaox2 cvs: rrr Lungs: CTAB Abd nt/nd ext: left leg dressing clean, no bleeding, no purulence Internal Medicine: Result - Labs CBC & Chem 7: 04/13/17 05:09 04/13/17 05:09 - VTE Reasons for not Prescribing Prophylaxis: Medical contraindication Consult Discharge Plan - Plan Additional Instructions: DAILY WOUND CARE: Remove dressing. Irrigate with sterile normal saline. Repack the lateral and medial margin tunneling with saline gauze. Cover with ABD. Cover with Kerlix. Referrals: Margo Bassett MD [Partnered Physician] - 04/18/17 8:45 am (Follow-up with Dr. Bassett in Wound Care on 04/18/2017 at 8:45 am) NONE,PCP [Primary Care Provider] -
--- NOTE | 2017-04-14 08:06 | Internal Med Progress Note ---
Date of Encounter: 04/14/17 Time of Encounter: 15:43 - Assessment and plan (1) Hematoma of left lower extremity Current Visit: Yes Status: Chronic Assessment and plan: In summary: Ms. Bee is a 82 year old female who presented to emergency room for progressive left lower leg redness and swelling. She reported feeling ill 1 week prior to admission, with fever. Patient cannot clearly tell if there is trauma. In ED, a venous duplex of left lower extremity showed superficial thrombus, no DVT. A CT of left leg showed fluid collection consistent with hematoma and Surgery was consulted. No DVT porphylaxis was given as patient had hematoma and she is also a fall risk. She was placed on Vanco/Zosyn for cellulitis after blood cultures were obtained. She was admitted for further management. On 04/08 patient underwent debridement at bedside. Wound cultures are currently unavailable. Blood cultures grew Bacillus in 1 of 2 samples. PT/OT evaluated patient and ECF was recommended. The Patient's daughters are debating taking patient home to care for her. However, this will not be a safe condition for patient as during this admission she required two assistants minimum to ambulate. She will need: constant supervision with assistance with ambulation, extensive PT/OT, daily wound dressing changes, IV antibiotics. EPIV planned for 04/15 to be discharged, ideally to SNF/ECF to complete total of 14 days of Vanc/Zosyn. She has outpatient follow-up with surgery for wound care and for a wound vac eventually. Qualifiers: Encounter type: initial encounter Qualified Code(s): S80.12XA - Contusion of left lower leg, initial encounter (2) Cellulitis of left lower extremity Current Visit: Yes Status: Acute Assessment and plan: Continue Vanc/Zosyn, for total of 14 days worth of treatment. (3) Acute delirium Current Visit: Yes Status: Resolved Assessment and plan: Resolved, continue environmental precautions to reduce occurrences. (4) Urinary tract infection Current Visit: Yes Status: Acute Assessment and plan: On Vanc/Zosyn for leg infection, will cover UTI treatment. Qualifiers: Urinary tract infection type: site unspecified Hematuria presence: without hematuria Qualified Code(s): N39.0 - Urinary tract infection, site not specified (5) Diabetes Current Visit: No Status: Chronic Qualifiers: Diabetes mellitus type: type 2 Diabetes mellitus complication status: without complication Diabetes mellitus nursing home insulin use: without machine long goods helper use Qualified Code(s): E11.9 - Type 2 diabetes mellitus without complications (6) Hypothyroid Current Visit: No Status: Chronic Qualifiers: Hypothyroidism type: acquired Qualified Code(s): E03.9 - Hypothyroidism, unspecified (7) Hyperlipidemia Current Visit: No Status: Acute Qualifiers: Hyperlipidemia type: unspecified Qualified Code(s): E78.5 - Hyperlipidemia , unspecified (8) Thrombosis of saphenous vein Current Visit: Yes Status: Acute Qualifiers: Laterality: left Qualified Code(s): I82.812 - Embolism and thrombosis of superficial veins of left lower extremity - Subjective Interval history: Patient doing well but did display agitation overnight. She has lost her IV site, which she needs for IV antibiotics. - Constitutional Vitals: Temp Pulse Resp BP Pulse Ox 97.6 F 76 15 120/66 93 04/14/17 05:28 04/14/17 05:28 04/14/17 05:28 04/14/17 05:28 04/14/17 05:28 General appearance: Present: A&O X 2, no acute distress Exam: CVS: RRR Lungs: CTAB Ext: right lower leg dressing is clean, dry, without bleeding or purulent drainage. No surrounding erythema. Psych: calm, pleasant but occasionally displays thoughts of paranoia Internal Medicine: Result - Labs CBC & Chem 7: 04/14/17 07:48 04/14/17 07:48 - VTE Reasons for not Prescribing Prophylaxis: Medical contraindication Consult Discharge Plan - Plan Additional Instructions: DAILY WOUND CARE: Remove dressing. Irrigate with sterile normal saline. Repack the lateral and medial margin tunneling with saline gauze. Cover with ABD. Cover with Kerlix. Referrals: Margo Bassett MD [Partnered Physician] - 04/18/17 8:45 am (Follow-up with Dr. Bassett in Wound Care on 04/18/2017 at 8:45 am) NONE,PCP [Primary Care Provider] -
[2017-04-14] MEDS: Furosemide 40 MG TABLET PO SCH (08:14)
[2017-04-14] MEDS: amLODIPine 5 MG TABLET PO SCH (08:14)
[2017-04-14] MEDS: Acetaminophen 325 MG TABLET PO SCH ×3 (08:16→23:53)
[2017-04-14] MEDS: Piperacillin/Tazobactam 3.375 GM in D5% in Water (Mini-Bag+) 100 ML IVPB SCH (08:17)
[2017-04-14 08:19] LABS: BUN/Creatinine Ratio 19 (6-26); Blood Urea Nitrogen 17 mg/dL (7-20); Carbon Dioxide 23 mEq/L (19-29); Chloride 108 mEq/L (98-109); Glucose 162 mg/dL (70-99); Osmolality,Calculated 297 (280-300); Potassium 3.9 mEq/L (3.5-4.5); Sodium 141 mEq/L (136-145); eGFR For African Americans > 60 (> 60); eGFR For Non-African Americans 59 (> 60)
[2017-04-14] MEDS: Insulin LISPRO 300 UNITS/3 ML VIAL SQ SCH ×3 (08:19→16:52)
[2017-04-14] MEDS: Cholecalciferol (D-3) 1,000 UNIT TABLET PO SCH (08:20)
[2017-04-14 08:24] LABS: Basophils # 0.1 K/mcL (0.0-0.2); Basophils % 0.8 %; Eosinophils # 0.4 K/mcL (0.0-0.6); Eosinophils % 3.1 %; Hematocrit 39.6 % (35.3-44.9); Immature Granulocytes % 0.3 % (0-4); Lymphocytes # 3.3 K/mcL (0.6-4.6); Lymphocytes % 24.9 %; Mean Corpuscular HGB Conc 33.1 g/dL (31.6-35.5); Mean Corpuscular Hemoglobin 28.2 pg (28.0-33.3); Mean Corpuscular Volume 85.2 fL (83.0-100.0); Mean Platelet Volume 10.5 fL (9.4-12.4); Monocytes # 1.4 K/mcL (0.0-1.3); Monocytes % 10.2 %; Neutrophils # 8.1 K/mcL (1.6-8.9); Platelet Count 439 K/mcL (140-400); Red Blood Count 4.65 M/mcL (3.82-4.97); Red Cell Distribution Width 14.2 % (11.5-14.5); Segmented Neutrophils % 60.7 %
[2017-04-14 08:25] LABS: Hemoglobin 13.1 g/dL (11.5-15.4)
[2017-04-14] MEDS: Doxycycline 100 MG CAPSULE PO SCH (21:38)
[2017-04-15] MEDS ORDERED: Vancomycin 1,500 MG in D5% in Water 250 ML IVPB ONE ×2 (03:00→07:00)
[2017-04-15] MEDS: Insulin LISPRO 300 UNITS/3 ML VIAL SQ SCH ×3 (07:32→16:24)
[2017-04-15] MEDS ORDERED: Piperacillin/Tazobactam 3.375 GM in D5% in Water (Mini-Bag+) 100 ML IVPB SCH ×2 (08:00→14:00)
[2017-04-15] MEDS ORDERED: Vancomycin (wt based) 1,000 MG VIAL IV SCH (08:00)
[2017-04-15 08:43] LABS: BUN/Creatinine Ratio 26 (6-26); Blood Urea Nitrogen 19 mg/dL (7-20); Calcium 9.7 mg/dL (8.6-10.8); Carbon Dioxide 25 mEq/L (19-29); Chloride 107 mEq/L (98-109); Glucose 133 mg/dL (70-99); Osmolality,Calculated 296 (280-300); Potassium 3.6 mEq/L (3.5-4.5); Sodium 141 mEq/L (136-145); eGFR For African Americans > 60 (> 60); eGFR For Non-African Americans > 60 (> 60)
[2017-04-15 08:50] LABS: Basophils # 0.1 K/mcL (0.0-0.2); Basophils % 0.9 %; Eosinophils # 0.3 K/mcL (0.0-0.6); Hematocrit 35.2 % (35.3-44.9); Hemoglobin 11.5 g/dL (11.5-15.4); Immature Granulocytes % 0.4 % (0-4); Lymphocytes # 3.2 K/mcL (0.6-4.6); Lymphocytes % 29.7 %; Mean Corpuscular HGB Conc 32.7 g/dL (31.6-35.5); Mean Corpuscular Hemoglobin 28.1 pg (28.0-33.3); Mean Corpuscular Volume 86.1 fL (83.0-100.0); Mean Platelet Volume 10.1 fL (9.4-12.4); Monocytes # 1.1 K/mcL (0.0-1.3); Monocytes % 10.6 %; Neutrophils # 5.9 K/mcL (1.6-8.9); Platelet Count 444 K/mcL (140-400); Red Blood Count 4.09 M/mcL (3.82-4.97); Red Cell Distribution Width 14.2 % (11.5-14.5); Segmented Neutrophils % 55.4 %
[2017-04-15] MEDS: Acetaminophen 325 MG TABLET PO SCH ×2 (09:43→16:25)
[2017-04-15] MEDS: Doxycycline 100 MG CAPSULE PO SCH (09:44)
[2017-04-15] MEDS: Furosemide 40 MG TABLET PO SCH ×2 (09:44→09:51)
[2017-04-15] MEDS: Cholecalciferol (D-3) 1,000 UNIT TABLET PO SCH (09:44)
[2017-04-15] MEDS: amLODIPine 5 MG TABLET PO SCH (09:46)
[2017-04-15] MEDS ORDERED: Insulin DETEMIR 100 UNIT/ML X5UNITS SQ SCH (12:30)
--- NOTE | 2017-04-15 13:26 | Discharge Summary ---
Date of Encounter: 04/15/17 Time of Encounter: 10:10 - Discharge Diagnosis (1) Hematoma of left lower extremity Priority: Primary Status: Chronic Qualifiers: Encounter type: initial encounter Qualified Code(s): S80.12XA - Contusion of left lower leg, initial encounter (2) Acute delirium Priority: Secondary Status: Resolved (3) Cellulitis of left lower extremity Priority: Secondary Status: Acute (4) Hyperlipidemia Priority: Secondary Status: Acute Qualifiers: Hyperlipidemia type: unspecified Qualified Code(s): E78.5 - Hyperlipidemia , unspecified (5) Hypertension Priority: Secondary Status: Acute Qualifiers: Hypertension type: essential hypertension Qualified Code(s): I10 - Essential (primary) hypertension (6) Hypothyroid Priority: Secondary Status: Chronic Qualifiers: Hypothyroidism type: acquired Qualified Code(s): E03.9 - Hypothyroidism, unspecified (7) Thrombosis of left saphenous vein Priority: Secondary Status: Acute (8) Urinary tract infection Priority: Secondary Status: Ruled-out Qualifiers: Urinary tract infection type: acute cystitis Hematuria presence: without hematuria Qualified Code(s): N30.00 - Acute cystitis without hematuria - Discharge Medications Prescriptions: Lactobacillus Acidophilus [Acidophilus] 1 each PO BID #60 capsule Ujlskjyflqpz-Yqqy-Bwxvajqx,Iso [Zosyn 3.375 gm/50 ml Galaxy] 3.375 gm IV Q8H # 18 froz.piggy Vancomycin/0.9 % Sod Chloride [Vanco 1.5 gm/150 ml-0.9% NaCl] 1.5 gm IV DAILY # 6 plast..bag Home Medications: Cholecalciferol (D-3) [Vitamin D] 1,000 unit PO DAILY 02/02/16 [History] Levothyroxine [Synthroid] 50 mcg PO QAM 02/02/16 [History] Nitroglycerin [Nitrostat] 0.4 mg SL Q5M PRN 02/02/16 [History] Potassium Chloride [K-Tab ER] 10 meq PO DAILY 02/02/16 [History] Amlodipine Besylate 10 mg PO DAILY 04/07/17 [History] Furosemide [Lasix] 40 mg PO DAILY 04/07/17 [History] Lactobacillus Acidophilus [Acidophilus] 1 each PO BID #60 capsule 04/15/17 [Rx] Xyjcekfazprz-Otew-Xwainrbc,Iso [Zosyn 3.375 gm/50 ml Galaxy] 3.375 gm IV Q8H # 18 frothomas.piggy 04/15/17 [Rx] Vancomycin/0.9 % Sod Chloride [Vanco 1.5 gm/150 ml-0.9% NaCl] 1.5 gm IV DAILY # 6 plast..bag 04/15/17 [Rx] Allergies/Adverse Reactions: 3 Allergy/AdvReac Type Severity Reaction Status Date / Time atorvastatin [From Lipitor] AdvReac Vomiting Verified 03/18/16 03:11 codeine AdvReac Vomiting Verified 03/18/16 03:11 haloperidol [From Haldol] AdvReac Hallucinati Verified 06/13/16 16:48 ng indomethacin AdvReac Gastrointestinal Verified 03/18/16 03:11 Upset lisinopril [From Prinivil] AdvReac Dizziness Verified 03/18/16 03:11 simvastatin [From Zocor] AdvReac Vomiting Verified 03/18/16 03:11 tramadol AdvReac See Verified 03/18/16 03:11 Comments Date of admission: 04/09/17 13:04 Primary care physician: PCP NONE Consults: 04/11/17 12:24 Consult to Computer Tape Librarian [CONS] Routine Reason for SW Consult: discharge needs 04/15/17 00:01 Consult to Invasive Line Access Team [CONS] Routine Reason for Consult: Limited access Line Type: EPIV PICC line indications: Limited vascular access Discharging clinician: Angelito Currie Anticipated date of discharge: 04/15/17 - Patient Status Disposition: Transfer SNF Condition: Good Functional capacity at discharge: uses cane/walker Overall status at discharge: patient is progressing back to baseline - Discharge Instructions Instructions: Cellulitis (DC) Follow Up With: Margo Bassett MD [Partnered Physician] - 04/18/17 8:45 am (Follow-up with Dr. Bassett in Wound Care on 04/18/2017 at 8:45 am) NONE,PCP [Primary Care Provider] - Additional Instructions: DAILY WOUND CARE: Remove dressing. Irrigate with sterile normal saline. Repack the lateral and medial margin tunneling with saline gauze. Cover with ABD. Cover with Kerlix. - Diet and Activity Activity: increase activity as tolerated Diet: low fat, low cholesterol, low salt diet Hospital course: Ms. Bee is a 82 year old female patient with history of essential hypertension, hypothyroidism, dementia who presented to the ER with complaints of fever and left lower leg pain and erythema. CT scan of the leg done in the ER suggested the presence of a hematoma in this region. Surgery was consulted. Patient was also started on antibiotics for suspected cellulitis. She underwent bedside debridement of this lesion and has since been improving slowly. She has developed episodes of delirium intermittently likely due to underlying infection. She was also suspected of having urinary tract infection but cultures have not been done. Patient has not responded well to vancomycin and Zosyn. Since no cultures have been obtained, and given the fact that the patient has responded well to these antibiotics, she will be discharged to complete a 14 day antibiotic course with vancomycin and Zosyn. She will be placed to skilled rehabilitation per physical therapy recommendations. She will continue to follow up with wound clinic for further management of her left lower extremity wound. - Time Spent with Patient Total time spent providing and/or coordinating discharge services: Greater than 30 minutes (40 min) - Constitutional Vitals: Temp Pulse Resp BP Pulse Ox 98.0 F 62 14 109/65 97 04/15/17 10:05 04/15/17 10:05 04/15/17 10:05 04/15/17 10:05 04/15/17 10:05 General appearance: Present: cooperative, A&O X 2, no acute distress, answers questions appropriately - Respiratory Respiratory exam: Present: CTAB. Absent: accessory muscle use, rales, rhonchi, wheezes - Cardiovascular Cardiovascular exam: Present: RRR, +S1, +S2. Absent: diastolic murmur, gallop, rubs, systolic murmur - GI/Abdominal GI/Abdominal exam: Present: normal bowel sounds, soft, no peritoneal signs. Absent: distended, tenderness - Extremities Exam Extremities exam: Present: warm, radial pulses palpable and symmetrical. Absent : calf tenderness, cyanotic, pedal edema Additional comments: Plan currently bandaged. Nontender to palpation - Skin Skin exam: Present: dry, intact - VTE Reasons for not Prescribing Prophylaxis: Medical contraindication
--- NOTE | 2017-04-15 13:38 | Physician Discharge Referral ---
ExtendedCare Referral Info Provider in Charge after Transfer: PCP Institutional Level of Care: Skilled - Diagnosis (1) Hematoma of left lower extremity Priority: Primary Status: Chronic (2) Acute delirium Priority: Secondary Status: Resolved (3) Cellulitis of left lower extremity Priority: Secondary Status: Acute (4) Hyperlipidemia Priority: Secondary Status: Acute (5) Hypertension Priority: Secondary Status: Acute (6) Hypothyroid Priority: Secondary Status: Chronic (7) Thrombosis of left saphenous vein Priority: Secondary Status: Acute (8) Urinary tract infection Priority: Secondary Status: Ruled-out Prognosis: Fair Aware of Diagnosis: Patient, Family Aware of Prognosis: Patient, Family - Transfer Medications Prescriptions: Lactobacillus Acidophilus [Acidophilus] 1 each PO BID #60 capsule Nfxfunpjtyao-Pmut-Xapcugdh,Iso [Zosyn 3.375 gm/50 ml Galaxy] 3.375 gm IV Q8H # 18 froz.piggy Vancomycin/0.9 % Sod Chloride [Vanco 1.5 gm/150 ml-0.9% NaCl] 1.5 gm IV DAILY # 6 plast..bag Home Medications: Cholecalciferol (D-3) [Vitamin D] 1,000 unit PO DAILY 02/02/16 [History] Levothyroxine [Synthroid] 50 mcg PO QAM 02/02/16 [History] Nitroglycerin [Nitrostat] 0.4 mg SL Q5M PRN 02/02/16 [History] Potassium Chloride [K-Tab ER] 10 meq PO DAILY 02/02/16 [History] Amlodipine Besylate 10 mg PO DAILY 04/07/17 [History] Furosemide [Lasix] 40 mg PO DAILY 04/07/17 [History] Lactobacillus Acidophilus [Acidophilus] 1 each PO BID #60 capsule 04/15/17 [Rx] Pcenvsoghawk-Mvex-Asagjqfq,Iso [Zosyn 3.375 gm/50 ml Galaxy] 3.375 gm IV Q8H # 18 froz.piggy 04/15/17 [Rx] Vancomycin/0.9 % Sod Chloride [Vanco 1.5 gm/150 ml-0.9% NaCl] 1.5 gm IV DAILY # 6 plast..bag 04/15/17 [Rx] Allergies/Adverse Reactions: 3 Allergy/AdvReac Type Severity Reaction Status Date / Time atorvastatin [From Lipitor] AdvReac Vomiting Verified 03/18/16 03:11 codeine AdvReac Vomiting Verified 03/18/16 03:11 haloperidol [From Haldol] AdvReac Hallucinati Verified 06/13/16 16:48 ng indomethacin AdvReac Gastrointestinal Verified 03/18/16 03:11 Upset lisinopril [From Prinivil] AdvReac Dizziness Verified 03/18/16 03:11 simvastatin [From Zocor] AdvReac Vomiting Verified 03/18/16 03:11 tramadol AdvReac See Verified 03/18/16 03:11 Comments - Respiratory Orders Smoking Cessation: Smoking cessation has been advised. For more information, call the [place] Tobacco Quit Line at 8-695-QPOC-NOW. - Advance Directives Code Status: Full Code - Mobility Orders Ambulate (per PT) - Rehabiliation Orders Rehab Potential: Fair Rehab Orders: Evaluation for Physical Therapy, Evaluation for Occupational Therapy - Diet Orders Cardiac CERTIFICATION: I certify that the transfer of the above named patient to an Extended Care Facility is necessary for the continuing treatment of the diagnosis listed. The above information is true and accurate reflection of patient's current condition. Confidential - Redisclosure prohibited without a patient's written consent.
[2017-04-15] MEDS ORDERED: Vancomycin 1,500 MG in D5% in Water 250 ML IVPB SCH (14:00)
[2017-04-15 16:07] VITALS: BP 115/87
[2017-04-15] MEDS ORDERED: Aminoglycoside Consult 1 EACH MC ONE (19:11)
== END 2017-04-15 19:12 | DRG 605 ==
LOC: 3NENU 16:17 → EMEROO 16:17 → SUATTDRO 22:30 → 3NENU 23:10 → 3BNU 04-09 12:07 → SUATTDRO 04-09 13:04 → 3ANU 04-14 00:48
PROVIDERS: ADMIT Student in an Organized Health Care Education/Training Program; ATTEND Internal Medicine

== ENCOUNTER 2017-12-22 13:27 | Observation (INO) ==
[2017-12-22] MEDS ORDERED: 0.9 % Sodium Chloride 1,000 ML IVC ONE (13:38)
--- NOTE | 2017-12-22 13:41 | Emergency Department Note ---
Disposition Clinical Impression: TIA (transient ischemic attack) Altered mental status Qualifiers: Altered mental status type: unspecified Qualified Code(s): R41.82 - Altered mental status, unspecified Fall Qualifiers: Encounter type: initial encounter Qualified Code(s): W19.XXXA - Unspecified fall, initial encounter Disposition: Admitted As Inpatient Condition: Undetermined Referrals: Sanjay Wagner MD [Primary Care Provider] - Forms: ED Satisfaction Letter Time of Disposition: 16:55 General Adult HPI - General Chief complaint: ED Fall Stated complaint: fall Time Seen by Provider: 12/22/17 13:32 Source: patient, EMS Mode of arrival: EMS Limitations: altered mental status Nursing Notes Reviewed: Yes Vital Signs Reviewed: Yes - History of Present Illness HPI Narrative: 82-year-old female with extensive history of mechanical falls, arrives to the emergency department with complaint of mechanical fall. The patient was last known well around 7:30 this morning. The patient may have been on the ground for roughly 6 hours. She denies any complaints at this time other than generalized weakness. The patient is unsure if she struck her head. She denies anything other than chest pain at this time. She describes as crushing. The patient's daughter found the patient on the ground after the patient did not answer her phone. The patient is alert and answering most questions correctly. She is oriented to person. She knows that she is in the hospital was unsure of exactly which one and she does not know the year. She denies any other complaints at this time. She is alert otherwise. Unknown of exact last known well. We will not activate a stroke alert. Pain Scale: 10 - Related Data Home Medications Medication Instructions Recorded Confirmed Cholecalciferol (D-3) [Vitamin D] 1,000 unit PO DAILY 02/02/16 12/22/17 Levothyroxine [Synthroid] 50 mcg PO QAM 02/02/16 12/22/17 Nitroglycerin [Nitrostat] 0.4 mg SL Q5M PRN 02/02/16 12/22/17 Potassium Chloride [K-Tab ER] 10 meq PO DAILY 02/02/16 12/22/17 Amlodipine Besylate 10 mg PO DAILY 04/07/17 12/22/17 Furosemide [Lasix] 40 mg PO DAILY 04/07/17 12/22/17 HYDROcodone/Acet 5/325 mg [[place] 1 tab PO Q8H PRN 12/22/17 12/22/17 5-325 mg] Allergies Allergy/AdvReac Type Severity Reaction Status Date / Time atorvastatin [From Lipitor] AdvReac Vomiting Verified 04/18/17 15:37 codeine AdvReac Vomiting Verified 04/18/17 15:37 haloperidol [From Haldol] AdvReac Hallucinati Verified 04/18/17 15:37 ng indomethacin AdvReac Gastrointestinal Verified 04/18/17 15:37 Upset lisinopril [From Prinivil] AdvReac Dizziness Verified 04/18/17 15:37 simvastatin [From Zocor] AdvReac Vomiting Verified 04/18/17 15:37 tramadol AdvReac See Verified 04/18/17 15:37 Comments All systems ED: reviewed and negative except as stated. Constitutional: Reports: weakness. Denies: fever, chills ENT ED: Denies: congestion Cardiovascular: Reports: chest pain. Denies: dyspnea on exertion Respiratory: Denies: cough, dyspnea Gastrointestinal: Denies: abdominal pain, nausea, vomiting Genitourinary: Denies: urgency, dysuria Musculoskeletal: Denies: back pain, neck pain Neurological: Reports: weakness, confusion. Denies: headache Past Medical History - Past Medical History Attestation: Yes The following information was validated with the patient. Source: patient, old records reviewed, obtained from family Medical history: Reports: arthritis, CHF, CVA, hyperlipidemia, hypertension, myocardial infarction, thyroid disease, TIA, other Surgical history: Reports: appendectomy, knee replacement Psychiatric history: Reports: no psych history - Social History Smoking Status: Never smoker Smokeless Tobacco Status: No Alcohol use: Reports: none Drug use: Reports: none Physical Exam - General Limitations: altered mental status General appearance: alert, in no apparent distress - Head Head exam: atraumatic, normocephalic, normal inspection - Eye Eye exam: Present: normal appearance, PERRL, EOMI - ENT ENT exam: normal exam, normal oropharynx, mucous membranes moist - Neck Neck exam: Present: normal inspection, full ROM, trachea midline - Chest Chest inspection: Present: normal inspection, symmetric chest wall rise - Respiratory Respiratory exam: Present: normal lung sounds bilaterally - Cardiovascular Cardiovascular exam: Present: regular rate, normal rhythm, normal heart sounds - Abdominal Exam Abdominal exam: Present: soft, Non-Tender. Absent: tenderness, distention, guarding, rebound, rigidity - Extremities Exam Extremities exam: Present: full ROM, tenderness (Baseline Right wrist pain, Left wrist ecchymosis) - Neurological Exam Neurological exam: Present: alert - Expanded Neurological Exam Patient oriented to: Present: person Speech: Present: fluid speech Cranial nerves: EOM function (II, III, IV, ): Normal, facial sensation (V): Normal, facial palsy (VII): Normal Motor strength - LUE: 3/5 Motor strength - RUE: 3/5 Motor strength - LLE: 3/5 Motor strength - RLE: 3/5 Sensory exam upper extremity: light touch: Normal Sensory exam lower extremity: light touch: Normal Coma Scale Eye Opening: Spontaneous Coma Scale Motor Response: Obeys Commands Coma Scale Verbal Response: Confused Coma Scale Total: 14 - Skin Skin exam: Present: warm, dry, intact, normal color Course Vital Signs Temperature 98.3 F 12/22/17 13:28 Pulse Rate 65 12/22/17 13:28 Respiratory Rate 16 12/22/17 13:28 Blood Pressure 118/71 12/22/17 13:28 O2 Sat by Pulse Oximetry 97 12/22/17 13:28 Temperature 98.3 F 12/22/17 13:28 Pulse Rate 65 12/22/17 13:28 Respiratory Rate 16 12/22/17 13:28 Blood Pressure 118/71 12/22/17 13:28 O2 Sat by Pulse Oximetry 97 12/22/17 13:28 Oxygen Delivery Oxygen Delivery Room Air Medical Decision Making - MDM Narrative Medical decision making narrative: Workup in the emergency department demonstrates no acute process. The patient has no longer experiencing any chest pain but given the patient's severe chest pain as well as fall, we will admit the patient to the hospital. She was mildly confused upon arrival to the emergency department in addition the patient is unsure if she had a syncopal episode. The patient will be admitted to the hospital at this time for further workup and care to include likely MRI. The patient was made aware and agrees to plan. Patient's daughter was also made aware and agrees to plan. No further questions or concerns noted. - Lab Data Lab results reviewed: Yes I reviewed the patient's lab results. Result diagrams: 12/22/17 13:47 12/22/17 13:47 Lab Results 12/22/17 12/22/17 12/22/17 Range/Units 13:47 13:47 15:17 WBC 9.3 (4.3-11.1) K/mcL RBC 5.22 H (3.82-4.97) M/mcL Hgb 14.2 (11.5-15.4) g/dL Hct 43.9 (35.3-44.9) % MCV 84.1 (83.0-100.0) fL MCH 27.2 L (28.0-33.3) pg MCHC 32.3 (31.6-35.5) g/dL RDW 15.2 H (11.5-14.5) % Plt Count 336 (140-400) K/mcL MPV 10.2 (9.4-12.4) fL Immature Gran % 0.2 (0-4) % Seg Neutrophils % 60.6 % Lymphocytes % 23.0 % Monocytes % 15.2 % Eosinophils % 0.4 % Basophils % 0.6 % Neutrophils # 5.6 (1.6-8.9) K/mcL Lymphocytes # 2.1 (0.6-4.6) K/mcL Monocytes # 1.4 H (0.0-1.3) K/mcL Eosinophils # 0.0 (0.0-0.6) K/mcL Basophils # 0.1 (0.0-0.2) K/mcL Sodium 141 (136-145) mEq/L Potassium 3.5 (3.5-5.1) mEq/L Chloride 108 H (98-107) mEq/L Carbon Dioxide 23 (23-29) mEq/L BUN 12 (8-23) mg/dL Creatinine 0.70 (0.60-1.20) mg/dL Est GFR ( Amer) > 60 (> 60) Est GFR (Non-Af Amer) > 60 (> 60) BUN/Creatinine Ratio 17 (6-26) Glucose 149 H (70-105) mg/dL Calculated Osmolality 295 (280-300) Calcium 10.1 (8.6-10.3) mg/dL Total Bilirubin 0.4 (0.3-1.0) mg/dL AST 15 (13-39) Units/L ALT 12 (7-52) Units/L Alkaline Phosphatase 121 H (34-104) Units/L Creatine Kinase 128 (30-223) Units/L Troponin I < 0.03 (< 0.04) ng/mL Serum Total Protein 7.3 (6.4-8.9) g/dL Albumin 4.2 (3.5-5.7) g/dL Globulin 3.1 (2.4-3.5) g/dL Albumin/Globulin Ratio 1.4 (1.1-2.2) Urine Color Yellow (Yellow) Urine Clarity Clear (Clear) Urine pH 7.5 (5.0-8.0) pH Units Ur Specific [place] 1.014 (1.010-1.025) Urine Protein Negative (Neg-Trace) mg/dL Urine Glucose (UA) Normal (Normal) mg/dL Urine Ketones Negative (Negative) mg/dL Urine Blood Negative (Negative) Urine Nitrite Negative (Negative) Urine Bilirubin Negative (Negative) Urine Urobilinogen Normal (Normal) mg/dL Ur Leukocyte Esterase Moderate H (Negative) Urine Microscopic RBC 0-3 (0-3) per hpf Urine Microscopic WBC 5-15 H (0-3) per hpf Ur Squamous Epith Cells Many H (None-Few) per lpf Urine Bacteria None Seen (None-Few) per hpf Hyaline Casts None Seen (None-Few) per lpf Ur Culture Indicated? NO. A (NO) - Radiology Data Radiology results reviewed: Yes I reviewed the patient's radiology results. Chest X-Ray 12/22/17 13:35 IMPRESSION: No evidence of acute cardiopulmonary disease. D/ / Tuan Gilbert MD / Tuan Gilbert MD Interpreting Provider: Tuan Gilbert MD Head CT 12/22/17 13:35 IMPRESSION: 1. No acute intracranial abnormality. 2. Diffuse cerebral atrophy with chronic small vessel ischemic disease. D/ / Eron Rush MD / Eron Rush MD Interpreting Provider: Eron Rush MD Cervical Spine CT 12/22/17 13:39 IMPRESSION: No acute abnormality of the cervical spine. Multilevel degenerative changes again noted. D/ / Gautam Mclean MD / Gautam Mclean MD Interpreting Provider: Gautam Mclean MD - EKG Data EKG #1 EKG attestation: Yes I reviewed and interpreted this EKG. EKG results narrative: Heart rate 63 bpm. Normal sinus rhythm with no ST elevation or ST depression noted. Poor EKG quality due to artifact. No acute changes noted. NIH Stroke Scale - Level of Consciousness LOC: Alert - LOC Questions LOC Questions: Answers both correctly - LOC Commands LOC Commands: Performs both correctly - Best Gaze Best Gaze: Normal - Visual Visual: No visual loss - Facial Palsy Facial Palsy: Normal - Motor Arms Motor Arm-Left: No drift for 10 seconds Motor Arm-Right: No drift for 10 seconds - Motor Legs Motor Leg-Left: No drift for 5 seconds Motor Leg-Right: No drift for 5 seconds - Limb Ataxia Limb Ataxia: Normal, No Ataxia - Sensory Sensory: Normal - Best Language Best Language: No aphasia - Dysarthria Dysarthria: Normal - Extinction and Inattention Extinction and Inattention: Inattention or extinction in ONE modality - NIHSS Total Score NIHSS Total Score: 1
[2017-12-22 14:19] LABS: Basophils # 0.1 K/mcL (0.0-0.2); Basophils % 0.6 %; Eosinophils % 0.4 %; Hematocrit 43.9 % (35.3-44.9); Hemoglobin 14.2 g/dL (11.5-15.4); Immature Granulocytes % 0.2 % (0-4); Lymphocytes # 2.1 K/mcL (0.6-4.6); Mean Corpuscular HGB Conc 32.3 g/dL (31.6-35.5); Mean Corpuscular Hemoglobin 27.2 pg (28.0-33.3); Mean Corpuscular Volume 84.1 fL (83.0-100.0); Mean Platelet Volume 10.2 fL (9.4-12.4); Monocytes # 1.4 K/mcL (0.0-1.3); Monocytes % 15.2 %; Neutrophils # 5.6 K/mcL (1.6-8.9); Platelet Count 336 K/mcL (140-400); Red Blood Count 5.22 M/mcL (3.82-4.97); Red Cell Distribution Width 15.2 % (11.5-14.5); Segmented Neutrophils % 60.6 %
--- NOTE | 2017-12-22 14:30 | Emergency Department Note ---
Disposition Clinical Impression: Altered mental status Qualifiers: Altered mental status type: unspecified Qualified Code(s): R41.82 - Altered mental status, unspecified Disposition: Admitted As Inpatient Referrals: Sanjay Wagner MD [Primary Care Provider] - Forms: ED Satisfaction Letter General Adult HPI - General Chief complaint: ED Fall Stated complaint: fall Time Seen by Provider: 12/22/17 13:32 Source: patient, EMS Mode of arrival: EMS Limitations: altered mental status - History of Present Illness Pain Scale: 10 - Related Data Home Medications Medication Instructions Recorded Confirmed Cholecalciferol (D-3) [Vitamin D] 1,000 unit PO DAILY 02/02/16 04/18/17 Levothyroxine [Synthroid] 50 mcg PO QAM 02/02/16 04/18/17 Nitroglycerin [Nitrostat] 0.4 mg SL Q5M PRN 02/02/16 04/18/17 Potassium Chloride [K-Tab ER] 10 meq PO DAILY 02/02/16 04/18/17 Amlodipine Besylate 10 mg PO DAILY 04/07/17 04/18/17 Furosemide [Lasix] 40 mg PO DAILY 04/07/17 04/18/17 Previous Rx's Medication Instructions Recorded Lactobacillus Acidophilus 1 each PO BID #60 capsule 04/15/17 [Acidophilus] HYDROcodone/Acet 5/325 mg [[place] 1 tab PO Q6H PRN 2 Days #6 tab 11/23/17 5-325 mg] Allergies Allergy/AdvReac Type Severity Reaction Status Date / Time atorvastatin [From Lipitor] AdvReac Vomiting Verified 04/18/17 15:37 codeine AdvReac Vomiting Verified 04/18/17 15:37 haloperidol [From Haldol] AdvReac Hallucinati Verified 04/18/17 15:37 ng indomethacin AdvReac Gastrointestinal Verified 04/18/17 15:37 Upset lisinopril [From Prinivil] AdvReac Dizziness Verified 04/18/17 15:37 simvastatin [From Zocor] AdvReac Vomiting Verified 04/18/17 15:37 tramadol AdvReac See Verified 04/18/17 15:37 Comments Constitutional: Reports: weakness. Denies: fever, chills ENT ED: Denies: congestion Cardiovascular: Reports: chest pain. Denies: dyspnea on exertion Respiratory: Denies: cough, dyspnea Gastrointestinal: Denies: abdominal pain, nausea, vomiting Genitourinary: Denies: urgency, dysuria Musculoskeletal: Denies: back pain, neck pain Neurological: Reports: weakness, confusion. Denies: headache Past Medical History - Past Medical History Medical history: Reports: arthritis, CHF, CVA, hyperlipidemia, hypertension, myocardial infarction, thyroid disease, TIA, other Surgical history: Reports: appendectomy, knee replacement Psychiatric history: Reports: no psych history - Social History Smoking Status: Never smoker Smokeless Tobacco Status: No Alcohol use: Reports: none Drug use: Reports: none Physical Exam - General Limitations: altered mental status General appearance: alert, in no apparent distress Course Vital Signs Temperature 98.3 F 12/22/17 13:28 Pulse Rate 65 12/22/17 13:28 Respiratory Rate 16 12/22/17 13:28 Blood Pressure 118/71 12/22/17 13:28 O2 Sat by Pulse Oximetry 97 12/22/17 13:28 Temperature 98.3 F 12/22/17 13:28 Pulse Rate 65 12/22/17 13:28 Respiratory Rate 16 12/22/17 13:28 Blood Pressure 118/71 12/22/17 13:28 O2 Sat by Pulse Oximetry 97 12/22/17 13:28 Oxygen Delivery Oxygen Delivery Room Air Medical Decision Making - Lab Data Result diagrams: 12/22/17 13:47 Lab Results 12/22/17 Range/Units 13:47 WBC 9.3 (4.3-11.1) K/mcL RBC 5.22 H (3.82-4.97) M/mcL Hgb 14.2 (11.5-15.4) g/dL Hct 43.9 (35.3-44.9) % MCV 84.1 (83.0-100.0) fL MCH 27.2 L (28.0-33.3) pg MCHC 32.3 (31.6-35.5) g/dL RDW 15.2 H (11.5-14.5) % Plt Count 336 (140-400) K/mcL MPV 10.2 (9.4-12.4) fL Immature Gran % 0.2 (0-4) % Seg Neutrophils % 60.6 % Lymphocytes % 23.0 % Monocytes % 15.2 % Eosinophils % 0.4 % Basophils % 0.6 % Neutrophils # 5.6 (1.6-8.9) K/mcL Lymphocytes # 2.1 (0.6-4.6) K/mcL Monocytes # 1.4 H (0.0-1.3) K/mcL Eosinophils # 0.0 (0.0-0.6) K/mcL Basophils # 0.1 (0.0-0.2) K/mcL Attestation Statement - Attestation Attestation: I examined this patient and my medical decision-making was reviewed with the Resident Physician. I agree with the documented findings, disposition and treatment plan as described except to the extent set forth below. 82 year old female prests to the ED with complanits of fall and may have been down for the past 6 hours and is presenting wiht some hemineglect although last nknown well was over 6 hours ago and daughter at bedside states that she seems more altered. PAtinet is alert although orietned x 2 . WE will do a rhabdo workup with AMS workup and lynn admit ot medicne.
[2017-12-22 15:37] LABS: Bilirubin,Urine Negative (Negative); Blood,Urine Negative (Negative); Clarity,Urine Clear (Clear); Color,Urine Yellow (Yellow); Glucose,Urine (UA) Normal (Normal); Ketones,Urine Negative (Negative); Leukocyte Esterase,Urine Moderate (Negative); Nitrite,Urine Negative (Negative); PH,Urine 7.5 pH Units (5.0-8.0); Protein,Urine Negative (Neg-Trace); Specific Gravity,Urine 1.014 (1.010-1.025); Urobilinogen,Urine Normal (Normal)
[2017-12-22 15:39] LABS: Bacteria,Urine None Seen per hpf (None-Few); Hyaline Casts,Urine None Seen per lpf (None-Few); RBC,Urine 0-3 per hpf (0-3); Squamous Epithelial Cell,Urine Many per lpf (None-Few)
[2017-12-22 15:43] LABS: Alanine Aminotransferase 12 Units/L (7-52); Albumin 4.2 g/dL (3.5-5.7); Albumin/Globulin Ratio 1.4 (1.1-2.2); Alkaline Phosphatase 121 Units/L (34-104); Aspartate Amino Transferase 15 Units/L (13-39); BUN/Creatinine Ratio 17 (6-26); Bilirubin,Total 0.4 mg/dL (0.3-1.0); Blood Urea Nitrogen 12 mg/dL (8-23); Calcium 10.1 mg/dL (8.6-10.3); Carbon Dioxide 23 mEq/L (23-29); Chloride 108 mEq/L (98-107); Creatine Kinase 128 Units/L (30-223); Globulin 3.1 g/dL (2.4-3.5); Glucose 149 mg/dL (70-105); Osmolality,Calculated 295 (280-300); Potassium 3.5 mEq/L (3.5-5.1); Sodium 141 mEq/L (136-145); Total Protein 7.3 g/dL (6.4-8.9); Troponin I < 0.03 ng/mL (< 0.04); eGFR For African Americans > 60 (> 60); eGFR For Non-African Americans > 60 (> 60)
[2017-12-22] MEDS ORDERED: Naloxone 0.4 MG/ML INJ IVP PRN (18:19)
[2017-12-22] MEDS ORDERED: Acetaminophen 325 MG TABLET PO PRN (18:19)
[2017-12-22] MEDS ORDERED: *HR* HYDROcodone/Acet 5/325 mg TABLET PO PRN (18:20)
[2017-12-22] MEDS ORDERED: Nitroglycerin 0.4 MG TAB.SUBL SL PRN (18:20)
--- NOTE | 2017-12-22 18:39 | Internal Med History&Physical ---
Date of Encounter: 12/22/17 Time of Encounter: 17:30 Internal Medicine - H&P: HPI Chief complaint: Fall/Weakness Admitted From: Emergency Dept Plans for Post Hospital Care: Home History of present illness: Ms. Bee is a 82 year old female w/PMH of arthritis, CHF, CVA, HLD, HTN, thyroid disease TIA, and previous myocardial infarction approximately 1 year ago presents from the ED w/CC of generalized weakness and fall today. Pt. states she was using her walker this morning and slipped. Denies hitting her head. States that she is also having CP that is centralized pressure w/o exertion. Pt. denies recent illness, fever, chills, nausea, vomiting, changes in vision, headache, palpitations, shortness of breath, abdominal pain, cough, chest congestion, diarrhea, constipation, dizziness, lightheadedness, numbness, tingling, pre-syncope, or syncope. Past Med Surg Social Fam HX - Past Medical History Source: patient, old records reviewed, obtained from family Medical history: arthritis, CHF, CVA, hyperlipidemia, hypertension, myocardial infarction, thyroid disease, TIA, other Additional medical history: stress test Psychiatric history: no psych history - Past Surgical History Surgical History: appendectomy, knee replacement Additional surgical history: numerous ortho surg. - Social History Smoking Status: Never smoker Smokeless Tobacco Status: No Alcohol use: none Drug use: none Current living situation: Home Activity Level: Uses cane/walker Recent Out of Country Travel Within the Last 8 Weeks: No Exposure or Possible Exposure to Illness During Travel: No - Family History Mother Race: Family Member Ethnicity: Non- Age at : 65 Cause of : HF Hx Family Cardiac Disorders: Yes (HTN, KS, HLD) Father Race: Family Member Ethnicity: Non- Living Status: Age at : 65 Cause of : CAD Hx Family Cardiac Disorders: Yes (HTN, CAD) Internal Medicine - H&P: Meds Cholecalciferol (D-3) [Vitamin D] 1,000 unit PO DAILY 02/02/16 [History] Levothyroxine [Synthroid] 50 mcg PO QAM 02/02/16 [History] Nitroglycerin [Nitrostat] 0.4 mg SL Q5M PRN 02/02/16 [History] Potassium Chloride [K-Tab ER] 10 meq PO DAILY 02/02/16 [History] Amlodipine Besylate 10 mg PO DAILY 04/07/17 [History] Furosemide [Lasix] 40 mg PO DAILY 04/07/17 [History] HYDROcodone/Acet 5/325 mg [[place] 5-325 mg] 1 tab PO Q8H PRN 12/22/17 [History] 3 Allergy/AdvReac Type Severity Reaction Status Date / Time atorvastatin [From Lipitor] AdvReac Vomiting Verified 04/18/17 15:37 codeine AdvReac Vomiting Verified 04/18/17 15:37 haloperidol [From Haldol] AdvReac Hallucinati Verified 04/18/17 15:37 ng indomethacin AdvReac Gastrointestinal Verified 04/18/17 15:37 Upset lisinopril [From Prinivil] AdvReac Dizziness Verified 04/18/17 15:37 simvastatin [From Zocor] AdvReac Vomiting Verified 04/18/17 15:37 tramadol AdvReac See Verified 04/18/17 15:37 Comments All Systems PM: A 10-system review of systems was performed and is negative for pertinent findings except as documented above in the HPI. - Constitutional Constitutional: as per HPI, fatigue, falls, weakness, no chills, no fever(s), no night sweats - EENT Eyes: no change in vision, no discharge, no pain, no photophobia Ears: no ear discharge, no ear pain, no tinnitus Nose, mouth and throat: no dysphagia, no nasal discharge, no neck pain, no sore throat - Breasts Breasts: as per HPI - Cardiovascular Cardiovascular ROS IM: as per HPI, chest pain, no diaphoresis, no dyspnea, no lightheadedness, no palpitations, no syncope - Respiratory Respiratory: no cough, no dyspnea, no wheezing, no excessive phlegm production - Gastrointestinal Gastrointestinal: no abdominal pain, no diarrhea, no hematemesis, no hematochezia, no melena, no nausea, no vomiting - Genitourinary Genitourinary: no change in urinary stream, no dysuria, no flank pain, no hematuria Menstruation: as per HPI - Musculoskeletal Musculoskeletal ROS IM: no numbness, no tingling - Integumentary Integumentary IM: no rash, no unusual bruising - Neurological Neurological ROS: as per HPI, frequent falls, weakness, no confusion, no convulsions, no focal weakness, no numbness, no tingling, no tremor(s) - Psychiatric Psychiatric: as per HPI - Endocrine Endocrine IM: as per HPI - Hematologic/Lymphatic Hematologic/Lymphatic: no easy bruising - Allergic/Immunologic Allergic/Immunologic: as per HPI - Constitutional Vitals: Temp Pulse Resp BP Pulse Ox 98.3 F 71 18 112/67 96 12/22/17 13:28 12/22/17 17:08 12/22/17 18:09 12/22/17 18:09 12/22/17 17:08 General appearance: Present: cooperative, A&O X 3, pleasant, no acute distress, obese, answers questions appropriately - Head Head exam: Present: atraumatic, normocephalic - Eye Eye exam: Present: PERRL, conjuntiva pink, sclera anicteric Pupils: Present: PERRL - ENT ENT exam: Present: normal exam - Neck Neck exam general surgery: Present: normal inspection, supple, trachea midline. Absent: lymphadenopathy - Respiratory Respiratory exam: Present: CTAB. Absent: accessory muscle use, rales, rhonchi, wheezes - Cardiovascular Cardiovascular exam: Present: RRR, +S1, +S2. Absent: diastolic murmur, gallop, rubs, systolic murmur - GI/Abdominal GI/Abdominal exam: Present: normal bowel sounds, soft, no peritoneal signs. Absent: distended, tenderness - Rectal Rectal exam: Present: deferred - Additional comments: exam deferred. - Extremities Exam Extremities exam: Present: warm, radial pulses palpable and symmetrical. Absent : calf tenderness, cyanotic, pedal edema - Back Exam Back exam: Present: normal inspection - Neurological Exam Neurological exam: Present: alert, CN II-XII intact, oriented X3, no focal deficits. Absent: pronater drift, facial droop, speech deficit - Psychiatric Psychiatric exam: Present: normal affect, normal mood - Skin Skin exam: Present: dry, intact Internal Med - H&P Results - Labs CBC & Chem 7: 12/22/17 13:47 12/22/17 13:47 - EKG Data EKG shows normal: sinus rhythm - EKG Data Prior EKG available for review: yes EKG comments: 12/22/17 18:44 EKG dated 12/22/17 13:34 shows supraventricular rhythm and nonspecific ST and T- wave abnormality. EKG dated 12/22/17 15:10 shows sinus rhythm with nonspecific ST and T-wave abnormality. - Diagnostic Studies Chest x-ray Additional comments: Impressions Chest X-Ray 12/22/17 13:35 IMPRESSION: No evidence of acute cardiopulmonary disease. D/ / Tuan Gilbert MD / Tuan Gilbert MD Interpreting Provider: Tuan Gilbert MD CT scan - head Additional comments: Impressions Head CT 12/22/17 13:35 IMPRESSION: 1. No acute intracranial abnormality. 2. Diffuse cerebral atrophy with chronic small vessel ischemic disease. D/ / Eron Rush MD / Eron Rush MD Interpreting Provider: Eron Rush MD Other Images Additional comments: Impressions Cervical Spine CT 12/22/17 13:39 IMPRESSION: No acute abnormality of the cervical spine. Multilevel degenerative changes again noted. D/ / Gautam Mclean MD / Gautam Mclean MD Interpreting Provider: Gautam Mclean MD - Assessment and plan (1) Chest pain Current Visit: Yes Status: Acute Assessment and plan: Acute CP today. Pt. states that she has chronic intermittent CP. Describes pain as centralized pressure. Denies SOB, dizziness, diaphoresis, nausea, or vomiting. Initial troponin <0.03. Will trend. Echocardiogram ordered. Bilateral carotid Dopplers ordered. Continuous cardiac telemetry. Supplemental O2 w/ titration and SpO2 monitoring. EKG today shows sinus rhythm with nonspecific ST and T-wave abnormality. Consider adding stress test in a.m. Will keep pt. NPO @ midnight. Also consider Cardiology consult if troponins and/or Echocardiogram results abnormal. Pt. discussed w/Dr. Lira who agrees w/plan of care. Pt. is high risk for cardiac event and further morbidity based on current weakness, CP , hx of recurrent CP; hx of cardiac risk factors including CHF, CVA, previous [place] , HLD, HTN, and TIAs; and familial history of cardiac disease. Observation. Qualifiers: Chest pain type: other chest pain Qualified Code(s): R07.89 - Other chest pain; R07.8 - Other chest pain (2) Fall Current Visit: Yes Status: Acute Assessment and plan: Acute on chronic falls. Last fall today where pt. states she was using her walker and slipped. Denies hitting head. CT of the head/brain today shows no acute intracranial abnormality and diffuse cerebral atrophy with chronic small vessel ischemic disease. CT of the cervical spine without contrast today shows no acute abnormality of the cervical spine and multilevel degenerative changes again noted. Falls/safety precautions. Up with assist only. PT/OT consults ordered to assess pt. for rehabilitation needs for post-discharge planning. Qualifiers: Encounter type: initial encounter Qualified Code(s): W19.XXXA - Unspecified fall, initial encounter (3) Weakness Current Visit: Yes Status: Acute Assessment and plan: Acute weakness for the past several days. Pt. reports chronic weakness in bilateral LEs. Uses walker. Falls/safety precautions. Up with assist only. PT/ OT consults ordered. Nutrition consult ordered for PO supplementation. (4) HTN (hypertension) Current Visit: Yes Status: Chronic Assessment and plan: Hx of chronic HTN. Monitor pt. and VS. Continue pts. amlodipine. Qualifiers: Hypertension type: essential hypertension Qualified Code(s): I10 - Essential (primary) hypertension (5) HLD (hyperlipidemia) Current Visit: Yes Status: Chronic Assessment and plan: Hx of chronic HLD. Lipid panel in a.m. labs. Pt. does not currently take statin. Consider adding Lipitor or other statin (pt. is allergic to Zocor) based on lipid panel results. Qualifiers: Hyperlipidemia type: pure hypercholesterolemia Qualified Code(s): E78.00 - Pure hypercholesterolemia, unspecified; E78.0 - Pure hypercholesterolemia (6) Hypothyroid Current Visit: Yes Status: Chronic Assessment and plan: Hx of chronic hypothyroid. TSH and Free T4 in a.m. labs. Continue pts. Synthroid. Qualifiers: Hypothyroidism type: acquired Qualified Code(s): E03.9 - Hypothyroidism, unspecified (7) DVT prophylaxis Current Visit: Yes Status: Acute Assessment and plan: Heparin 5,000 units SQ Q12HR for DVT prophylaxis. Monitor pt. for signs of bleeding. - Time Spent With Patient Total time spent is greater than 50% in coordination of care (as documented) at patient's floor/unit and/or counseling patient: Greater than 35 minutes
[2017-12-22] MEDS ORDERED: *HR* Heparin 5,000 UNIT/ML VIAL SQ SCH (19:00)
[2017-12-23 02:14] LABS: Basophils # 0.1 K/mcL (0.0-0.2); Basophils % 0.7 %; Eosinophils # 0.1 K/mcL (0.0-0.6); Eosinophils % 0.8 %; Hematocrit 40.1 % (35.3-44.9); Hemoglobin 13.3 g/dL (11.5-15.4); Immature Granulocytes % 0.4 % (0-4); Lymphocytes # 2.3 K/mcL (0.6-4.6); Lymphocytes % 32.3 %; Mean Corpuscular HGB Conc 33.2 g/dL (31.6-35.5); Mean Corpuscular Hemoglobin 27.5 pg (28.0-33.3); Mean Corpuscular Volume 82.9 fL (83.0-100.0); Mean Platelet Volume 10.2 fL (9.4-12.4); Monocytes # 1.2 K/mcL (0.0-1.3); Neutrophils # 3.6 K/mcL (1.6-8.9); Platelet Count 325 K/mcL (140-400); Red Blood Count 4.84 M/mcL (3.82-4.97); Red Cell Distribution Width 15.4 % (11.5-14.5); Segmented Neutrophils % 49.8 %
[2017-12-23 02:33] LABS: Alanine Aminotransferase 11 Units/L (7-52); Albumin 3.7 g/dL (3.5-5.7); Albumin/Globulin Ratio 1.4 (1.1-2.2); Alkaline Phosphatase 102 Units/L (34-104); Aspartate Amino Transferase 16 Units/L (13-39); BUN/Creatinine Ratio 17 (6-26); Bilirubin,Total 0.4 mg/dL (0.3-1.0); Blood Urea Nitrogen 12 mg/dL (8-23); Calcium 9.5 mg/dL (8.6-10.3); Carbon Dioxide 24 mEq/L (23-29); Chloride 111 mEq/L (98-107); Chol/HDL Ratio 4.2 (0-4.9); Cholesterol 187 mg/dL (< 200); Globulin 2.6 g/dL (2.4-3.5); Glucose 128 mg/dL (70-105); HDL Cholesterol 45 mg/dL (40-59); LDL Cholesterol,Calculated 120 mg/dL (0-99); Osmolality,Calculated 293 (280-300); Potassium 3.5 mEq/L (3.5-5.1); Sodium 141 mEq/L (136-145); Total Protein 6.3 g/dL (6.4-8.9); Triglycerides 109 mg/dL (< 150); eGFR For African Americans > 60 (> 60); eGFR For Non-African Americans > 60 (> 60)
[2017-12-23 02:49] LABS: Thyroid Stimulating Hormone 2.783 mcIU/mL (0.340-5.600)
[2017-12-23 09:01] LABS: Estimated Average Glucose 151 mg/dl; Hemoglobin A1C 6.9 %
--- NOTE | 2017-12-23 11:02 | Neurology - Consult Note ---
<Homar Trevino R - Last Filed: 12/23/17 10:57> Date of Encounter: 12/23/17 Time of Encounter: 10:57 History of Present Illness HPI: Ms. Bee is a 82 year old female with a history of AR, HTN, CHF, and TIA. She was found yesterday afternoon by her daughter laying on the floor. Time down is unknown but could be up to 6 hours. Patient is not sure why she fell and doesn't recall the event or hitting her head. She has been falling more frequently, and has fallen several times in the past month. She had some altered mental status in the ED and generalized weakness. Daughter states the patient hasn't been ambulating as well lately, and believes she is tripping over things. Pt also has right forearm splint, making us of her walker more difficult. Head CT shows no acute process with chronic small vessel ischemic disease. Head MRI reveals a remote left thalamus lacunar infarct. Echo and carotid ultrasound are pending. Past Med Surg Social Fam HX - Past Medical History Medical history: arthritis, CHF, CVA, hyperlipidemia, hypertension, myocardial infarction, thyroid disease, TIA, other Additional medical history: stress test Psychiatric history: no psych history - Past Surgical History Surgical History: appendectomy, knee replacement Additional surgical history: numerous ortho surg. - Social History Smoking Status: Never smoker Smokeless Tobacco Status: No Alcohol use: none Drug use: none - Family History Father Race: Family Member Ethnicity: Non- Living Status: Age at : 65 Cause of : CAD Hx Family Cardiac Disorders: Yes (HTN, CAD) Mother Race: Family Member Ethnicity: Non- Age at : 65 Cause of : HF Hx Family Cardiac Disorders: Yes (HTN, AR, HLD) Hx Family Respiratory Disorders: No Hx Family Cancer: No Hx Family GI Disorders: No Hx Family Endocrine Disorder: No Hx Family Neuromuscular Disorders: No Hx Family Neurologic Disorders: No Hx Family HEENT Disorders: No Hx Family Autoimmune Disorders: No Medications and Allergies Cholecalciferol (D-3) [Vitamin D] 1,000 unit PO DAILY 02/02/16 [History] Levothyroxine [Synthroid] 50 mcg PO QAM 02/02/16 [History] Nitroglycerin [Nitrostat] 0.4 mg SL Q5M PRN 02/02/16 [History] Potassium Chloride [K-Tab ER] 10 meq PO DAILY 02/02/16 [History] Amlodipine Besylate 10 mg PO DAILY 04/07/17 [History] Furosemide [Lasix] 40 mg PO DAILY 04/07/17 [History] HYDROcodone/Acet 5/325 mg [[place] 5-325 mg] 1 tab PO Q8H PRN 12/22/17 [History] 3 Allergy/AdvReac Type Severity Reaction Status Date / Time atorvastatin [From Lipitor] AdvReac Vomiting Verified 04/18/17 15:37 codeine AdvReac Vomiting Verified 04/18/17 15:37 haloperidol [From Haldol] AdvReac Hallucinati Verified 04/18/17 15:37 ng indomethacin AdvReac Gastrointestinal Verified 04/18/17 15:37 Upset lisinopril [From Prinivil] AdvReac Dizziness Verified 04/18/17 15:37 simvastatin [From Zocor] AdvReac Vomiting Verified 04/18/17 15:37 tramadol AdvReac See Verified 04/18/17 15:37 Comments All Systems: The remainder of the systems were reviewed and are negative Review of Systems: Generalized weakness Physical Examination - Vital Signs Vital Signs: Initial Vital Signs Temp Pulse Resp BP Pulse Ox 98.3 F 65 16 118/71 97 12/22/17 13:28 12/22/17 13:28 12/22/17 13:28 12/22/17 13:28 12/22/17 13:28 - Exam Exam: Mental status: Patient is awake, drowsy and trying to sleep during pauses in exam. Requires prompting to complete some tasks and questions. Oriented to person only. Speech is appropriate and fluent, fund of knowledge appears diminished. Cranial nerves: CN II-XII intact bilateral, pupils are equal, round, and reactive to light. Upper extremity motor: left side is 4/5 strength compared to right deltoid, biceps, triceps, finger extensors and abductors, however patient appears deconditioned and is generally weak. Right upper extremity essential tremor is observed Lower extremity motor: left side strength 4/5 in hip flexors, quadriceps, hamstrings, planter flexors and extensors. 5/5 strength on right. Sensory: sensation to light touch and proprioception is intact in all four extremities Cerebellar: tremor observed in right upper extremity. Finger-nose and rapid alternating movements performed appropriately Reflexes: Symmetric and 1+ in biceps, triceps, brachioradialis, achilles and patellar. Babinski is negative. Results - Laboratory Findings CBC and BMP: 12/23/17 01:56 12/23/17 01:56 Abnormal lab findings: Abnormal lab results MCV 82.9 fL (83.0-100.0) L 12/23/17 01:56 MCH 27.5 pg (28.0-33.3) L 12/23/17 01:56 RDW 15.4 % (11.5-14.5) H 12/23/17 01:56 Chloride 111 mEq/L (98-107) H 12/23/17 01:56 Glucose 128 mg/dL (70-105) H 12/23/17 01:56 Hemoglobin A1c 6.9 % (-5.6) H 12/23/17 01:56 Serum Total Protein 6.3 g/dL (6.4-8.9) L 12/23/17 01:56 LDL Cholesterol, Calc 120 mg/dL (0-99) H 12/23/17 01:56 Ur Leukocyte Esterase Moderate (Negative) H 12/22/17 15:17 Urine Microscopic WBC 5-15 per hpf (0-3) H 12/22/17 15:17 Ur Squamous Epith Cells Many per lpf (None-Few) H 12/22/17 15:17 Ur Culture Indicated? NO. (NO) A 12/22/17 15:17 Consult Discharge Plan - Plan Referrals: Sanjay Wagner MD [Primary Care Provider] - <Amanda Bucio I - Last Filed: 12/23/17 17:21> Date of Encounter: 12/23/17 Assessment and Plan (1) Frequent falls Current Visit: Yes Status: Acute Pt was seen and examined, my medical decision was reviewed with the Resident Physician, I agree with the documented findings, disposition and treatment plas as described except to the extent set forth below This 82 years old female who was admitted with frequent falls losing balance also has a history of some tremors is not clear that indeed she has parkinsonism or not as at the moment she does have some underlying confusion and also has some resting and action tremors as per family she is been diagnosed with tremors in the past has not been evaluated by neurology and is recently been losing balance and falling a lot. On examination Patient is awake and alert but did have some mild confusion and agitation able to follow simple commands she did have some tremors resting as well as chin tremors moving all 4 extremities easily. Patient already had an MRI of the brain that did not show any acute abnormalities shows chronic basal ganglia infarct and generalized atrophy. CT scan of the head and neck did not show any acute bleed or any fracture or dislocation. At the moment seems like her falls are likely multifactorial but at the same time it could be related to underlying memory loss that could be evaluated later on and also could be underlying parkinsonism especially with a history of basal ganglia infarct. Regardless patient remain at risk for frequent falls no evidence of acute stroke Suggest physical therapy evaluation for gait and balance training may benefit from short-term rehabilitation. Check for other underlying metabolic abnormalities in particularly for UTI or any other metabolic infection that may be causing or contributing to her symptoms and particularly mental status changes. High risk for sundowning, explained to the family that she is at high risk for confusion at nighttime She has received Haldol in the past that made her symptoms worse family, preferences Ativan may use it as needed other option will be of Seroquel to use it on as-needed basis. Explained to the daughter was at the bedside in detail also suggested neurological follow-up as an outpatient for the evaluation of these gait and balance disorder as well as for possibility of parkinsonism Amanda Bucio MD (2) Altered awareness, transient Current Visit: No Status: Acute History of Present Illness HPI: Ms. Bee is a 82 year old female All Systems: The remainder of the systems were reviewed and are negative Physical Examination - Vital Signs Vital Signs: Initial Vital Signs Temp Pulse Resp BP Pulse Ox 98.3 F 65 16 118/71 97 12/22/17 13:28 12/22/17 13:28 12/22/17 13:28 12/22/17 13:28 12/22/17 13:28 Results - Laboratory Findings CBC and BMP: 12/23/17 01:56 12/23/17 01:56 Abnormal lab findings: Abnormal lab results MCV 82.9 fL (83.0-100.0) L 12/23/17 01:56 MCH 27.5 pg (28.0-33.3) L 12/23/17 01:56 RDW 15.4 % (11.5-14.5) H 12/23/17 01:56 Chloride 111 mEq/L (98-107) H 12/23/17 01:56 Glucose 128 mg/dL (70-105) H 12/23/17 01:56 Hemoglobin A1c 6.9 % (-5.6) H 12/23/17 01:56 Serum Total Protein 6.3 g/dL (6.4-8.9) L 12/23/17 01:56 LDL Cholesterol, Calc 120 mg/dL (0-99) H 12/23/17 01:56 Ur Leukocyte Esterase Moderate (Negative) H 12/22/17 15:17 Urine Microscopic WBC 5-15 per hpf (0-3) H 12/22/17 15:17 Ur Squamous Epith Cells Many per lpf (None-Few) H 12/22/17 15:17 Ur Culture Indicated? NO. (NO) A 12/22/17 15:17
--- NOTE | 2017-12-23 14:39 | Electrocardiograph Report ---
[facility] Test Date: 2017-12-22 Pat Name: Cassy Bee Department: 102 Room: 3B54 Gender: F Statistician Applied: Ct : 1935 Requested By: Sanjay Hill Order Number: [id number] Reading MD: Cole Hilton Measurements Intervals [place] Rate: 63 P: [place]: 0 QRS: 32 QRSD: 88 T: 114 QT: 413 QTc: 420 Interpretive Statements SUPRAVENTRICULAR RHYTHM NONSPECIFIC ST & T-WAVE ABNORMALITY Electronically Signed On 12-23-2017 14:38:11 EDT by Cole Hilton
--- NOTE | 2017-12-23 15:07 | Internal Med Progress Note ---
Date of Encounter: 12/23/17 Time of Encounter: 15:05 - Assessment and plan (1) Fall Current Visit: Yes Status: Acute Assessment and plan: Acute on chronic falls. Last fall today where pt. states she was using her walker and slipped. Denies hitting head. CT of the head/brain today shows no acute intracranial abnormality and diffuse cerebral atrophy with chronic small vessel ischemic disease. CT of the cervical spine without contrast today shows no acute abnormality of the cervical spine and multilevel degenerative changes again noted. Falls/safety precautions. Up with assist only. PT/OT consults ordered to assess pt. for rehabilitation needs for post-discharge planning. 12/23-patient has had recurrent falls recently as an outpatient. She lives at home however I do not feel that she is appropriate to be discharged back home eventually. I will consult physical therapy and occupational therapy for input. We are still in the process of ruling out any further neurological intervention that needs to be done. Her workup for stroke has so far been negative at least for acute stroke. MRI of the brain showed only remote untreated thalamic stroke but no acute strokes Await further evaluation by neurology Qualifiers: Encounter type: initial encounter Qualified Code(s): W19.XXXA - Unspecified fall, initial encounter (2) Hypothyroid Current Visit: Yes Status: Chronic Assessment and plan: Continue pts. Synthroid. Qualifiers: Hypothyroidism type: acquired Qualified Code(s): E03.9 - Hypothyroidism, unspecified (3) Weakness Current Visit: Yes Status: Acute Assessment and plan: See plan above. (4) DVT prophylaxis Current Visit: Yes Status: Acute (5) HTN (hypertension) Current Visit: Yes Status: Chronic Qualifiers: Hypertension type: essential hypertension Qualified Code(s): I10 - Essential (primary) hypertension (6) HLD (hyperlipidemia) Current Visit: Yes Status: Chronic Qualifiers: Hyperlipidemia type: pure hypercholesterolemia Qualified Code(s): E78.00 - Pure hypercholesterolemia, unspecified; E78.0 - Pure hypercholesterolemia (7) Chest pain Current Visit: Yes Status: Acute Assessment and plan: Acute CP today. Pt. states that she has chronic intermittent CP. Describes pain as centralized pressure. Denies SOB, dizziness, diaphoresis, nausea, or vomiting. Initial troponin <0.03. Will trend. Echocardiogram ordered. Bilateral carotid Dopplers ordered. Continuous cardiac telemetry. Supplemental O2 w/ titration and SpO2 monitoring. EKG today shows sinus rhythm with nonspecific ST and T-wave abnormality. Consider adding stress test in a.m. Will keep pt. NPO @ midnight. Also consider Cardiology consult if troponins and/or Echocardiogram results abnormal. Pt. discussed w/Dr. Lira who agrees w/plan of care. Pt. is high risk for cardiac event and further morbidity based on current weakness, CP , hx of recurrent CP; hx of cardiac risk factors including CHF, CVA, previous DC , HLD, HTN, and TIAs; and familial history of cardiac disease. Observation. 12/23-serial cardiac enzymes were negative. EKG showed only nonspecific ST-T wave abnormalities. I discussed the case with cardiology nurse practitioner who recommended against getting a stress test inpatient however they are working to get an expedited stress test as an outpatient and they will plan for it. they will notify the patient prior to discharge as to what the plans. Qualifiers: Chest pain type: other chest pain Qualified Code(s): R07.89 - Other chest pain; R07.8 - Other chest pain - Time Spent With Patient Total time spent is greater than 50% in coordination of care (as documented) at patient's floor/unit and/or counseling patient: 25 - 35 minutes - Subjective Interval history: Patient denies any any new symptoms at this point. According to the nurses she has had been feeling more delirious since she has been here and also very weak. - Constitutional Vitals: Temp Pulse Resp BP Pulse Ox 98.9 F 67 18 148/67 95 12/23/17 07:28 12/23/17 07:28 12/23/17 07:28 12/23/17 07:28 12/23/17 07:28 General appearance: Present: cooperative, A&O X 3, pleasant, no acute distress, obese, answers questions appropriately Exam: GENERAL: Alert, moderate distress, cooperative however oriented 1 only EYES: PERRLA, EOMI EARS: External ears normal, canals clear OROPHARYNX: Lips, mucosa, and tongue normal. Teeth and gums normal. Oropharynx normal. NECK: No jugulovenous distention, No carotid bruits, Carotid pulse normal contour, Supple LUNGS: Lungs clear to auscultation, Good diaphragmatic excursion CARDIAC: Normal S1 and S2; no rubs, murmurs, or gallops ABDOMEN: Abdomen soft, non-tender, BS normal, No masses or organomegaly Neurological examination: Right forearm is in cast and examination is limited however upper right arm strength is 5 x 5 and left arm strength is 4 x 5. Left lower activity strength is 4 x 5 and right side is 5 x 5 PULSES: 2+ radial, 2+ carotid Rest of the exam is non contributory Internal Medicine: Result - Labs CBC & Chem 7: 12/23/17 01:56 12/23/17 01:56 Labs: Short CBC 12/23/17 Range/Units 01:56 WBC 7.2 (4.3-11.1) K/mcL Hgb 13.3 (11.5-15.4) g/dL Hct 40.1 (35.3-44.9) % Plt Count 325 (140-400) K/mcL Neutrophils # 3.6 (1.6-8.9) K/mcL BMP 12/23/17 01:56 Sodium 141 Potassium 3.5 Chloride 111 H Carbon Dioxide 24 BUN 12 Creatinine 0.70 Glucose 128 H Calcium 9.5 Cardiac Enzymes 12/22/17 12/23/17 Range/Units 19:57 01:56 Troponin I < 0.03 < 0.03 (< 0.04) ng/mL Liver Function 12/23/17 Range/Units 01:56 Total Bilirubin 0.4 (0.3-1.0) mg/dL AST 16 (13-39) Units/L ALT 11 (7-52) Units/L Alkaline Phosphatase 102 (34-104) Units/L Albumin 3.7 (3.5-5.7) g/dL - Impressions Impressions Brain MRI 12/22/17 20:34 IMPRESSION: 1. No acute intracranial abnormality. 2. Diffuse parenchymal volume loss with moderate chronic white matter microvascular ischemic changes. 3. Remote lacunar infarct in the left thalamus. D/ / Kaushik Greenberg / Kaushik Greenberg Interpreting Provider: Kaushik Greenberg - VTE Documentation of Mechanical Device: Intermittent pneumatic compression device Consult Discharge Plan - Plan Referrals: Sanjay Wagner MD [Primary Care Provider] -
[2017-12-23] MEDS: amLODIPine 5 MG TABLET PO SCH ×4 (15:28→15:54)
[2017-12-23] MEDS: Furosemide 40 MG TABLET PO SCH (15:29)
[2017-12-23] MEDS: Cholecalciferol (D-3) 1,000 UNIT TABLET PO SCH ×2 (15:29→15:43)
[2017-12-23 19:08] LABS: Vitamin B12 353 pg/mL (250-1100)
[2017-12-23 19:10] LABS: Folate > 22.3 ng/mL (3.0-16.0)
[2017-12-23] MEDS ORDERED: Melatonin 3 MG TABLET PO ONE (22:30)
[2017-12-24] MEDS: Cholecalciferol (D-3) 1,000 UNIT TABLET PO SCH (08:03)
[2017-12-24] MEDS: amLODIPine 5 MG TABLET PO SCH (08:03)
[2017-12-24] MEDS: Furosemide 40 MG TABLET PO SCH (08:03)
[2017-12-24 10:21] LABS: Basophils % 0.5 %; Eosinophils # 0.3 K/mcL (0.0-0.6); Eosinophils % 3.1 %; Hematocrit 38.5 % (35.3-44.9); Hemoglobin 12.4 g/dL (11.5-15.4); Immature Granulocytes % 0.3 % (0-4); Lymphocytes # 2.9 K/mcL (0.6-4.6); Lymphocytes % 36.2 %; Mean Corpuscular HGB Conc 32.2 g/dL (31.6-35.5); Mean Corpuscular Hemoglobin 27.3 pg (28.0-33.3); Mean Corpuscular Volume 84.6 fL (83.0-100.0); Mean Platelet Volume 10.1 fL (9.4-12.4); Monocytes # 0.9 K/mcL (0.0-1.3); Monocytes % 10.9 %; Neutrophils # 3.9 K/mcL (1.6-8.9); Platelet Count 299 K/mcL (140-400); Red Blood Count 4.55 M/mcL (3.82-4.97); Red Cell Distribution Width 15.8 % (11.5-14.5)
[2017-12-24 10:32] LABS: Alanine Aminotransferase 10 Units/L (7-52); Albumin 3.6 g/dL (3.5-5.7); Albumin/Globulin Ratio 1.5 (1.1-2.2); Alkaline Phosphatase 99 Units/L (34-104); Aspartate Amino Transferase 16 Units/L (13-39); BUN/Creatinine Ratio 22 (6-26); Bilirubin,Total 0.4 mg/dL (0.3-1.0); Blood Urea Nitrogen 18 mg/dL (8-23); Calcium 9.5 mg/dL (8.6-10.3); Carbon Dioxide 25 mEq/L (23-29); Chloride 109 mEq/L (98-107); Globulin 2.4 g/dL (2.4-3.5); Glucose 224 mg/dL (70-105); Osmolality,Calculated 299 (280-300); Potassium 3.6 mEq/L (3.5-5.1); Sodium 140 mEq/L (136-145); eGFR For African Americans > 60 (> 60); eGFR For Non-African Americans > 60 (> 60)
--- NOTE | 2017-12-24 15:55 | Neurology Progress Note ---
Date of Encounter: 12/24/17 Time of Encounter: 08:25 Assessment and Plan (1) Frequent falls Current Visit: Yes Status: Acute Pt was seen and examined, my medical decision was reviewed with the Resident Physician, I agree with the documented findings, disposition and treatment plas as described except to the extent set forth below This 82 years old female who was admitted with frequent falls losing balance also has a history of some tremors is not clear that indeed she has parkinsonism or not as at the moment she does have some underlying confusion and also has some resting and action tremors as per family she is been diagnosed with tremors in the past has not been evaluated by neurology and is recently been losing balance and falling a lot. On examination Patient is awake and alert but did have some mild confusion and agitation able to follow simple commands she did have some tremors resting as well as chin tremors moving all 4 extremities easily. Patient already had an MRI of the brain that did not show any acute abnormalities shows chronic basal ganglia infarct and generalized atrophy. CT scan of the head and neck did not show any acute bleed or any fracture or dislocation. At the moment seems like her falls are likely multifactorial but at the same time it could be related to underlying memory loss that could be evaluated later on and also could be underlying parkinsonism especially with a history of basal ganglia infarct. Regardless patient remain at risk for frequent falls no evidence of acute stroke Suggest physical therapy evaluation for gait and balance training may benefit from short-term rehabilitation. Check for other underlying metabolic abnormalities in particularly for UTI or any other metabolic infection that may be causing or contributing to her symptoms and particularly mental status changes. High risk for sundowning, explained to the family that she is at high risk for confusion at nighttime She has received Haldol in the past that made her symptoms worse family, preferences Ativan may use it as needed other option will be of Seroquel to use it on as-needed basis. Explained to the daughter was at the bedside in detail also suggested neurological follow-up as an outpatient for the evaluation of these gait and balance disorder as well as for possibility of parkinsonism Amanda Bucio MD (2) Altered awareness, transient Current Visit: No Status: Acute Subjective Interval history: Patient seems to be stable denies any other new problems or any other new symptoms no evidence of his stroke on examination Objective - Constitutional Vitals: Temp Pulse Resp BP Pulse Ox 98.9 F 69 16 127/76 96 12/24/17 12:16 12/24/17 12:16 12/24/17 12:16 12/24/17 12:16 12/24/17 12:16 - Neurological Exam Motor Examination: Present: grossly full strength in all extremities Sensation intact: Present: intact Mental Status Examination: Present: awake, alert, oriented to person, oriented to place Cranial nerve examination: Present: PERRL, EOMI, visual bhagat intact, no facial asymmetry is present - VTE Documentation of Mechanical Device: Intermittent pneumatic compression device Results - Laboratory Findings CBC and BMP: 12/24/17 09:57 12/24/17 09:57 Abnormal lab findings: Abnormal lab results MCH 27.3 pg (28.0-33.3) L 12/24/17 09:57 RDW 15.8 % (11.5-14.5) H 12/24/17 09:57 Chloride 109 mEq/L (98-107) H 12/24/17 09:57 Glucose 224 mg/dL (70-105) H 12/24/17 09:57 Hemoglobin A1c 6.9 % (-5.6) H 12/23/17 01:56 Serum Total Protein 6.0 g/dL (6.4-8.9) L 12/24/17 09:57 LDL Cholesterol, Calc 120 mg/dL (0-99) H 12/23/17 01:56 Folate > 22.3 ng/mL (3.0-16.0) H 12/23/17 17:44 Ur Leukocyte Esterase Moderate (Negative) H 12/22/17 15:17 Urine Microscopic WBC 5-15 per hpf (0-3) H 12/22/17 15:17 Ur Squamous Epith Cells Many per lpf (None-Few) H 12/22/17 15:17 Ur Culture Indicated? NO. (NO) A 12/22/17 15:17 Consult Discharge Plan - Plan Referrals: Amanda Bucio MD [Partnered Physician] - 01/06/18 2:45 pm Sanjay Wagner MD [Primary Care Provider] - 12/31/17 1:30 pm
[2017-12-24 16:18] VITALS: BP 138/57
--- NOTE | 2017-12-24 16:18 | Discharge Summary ---
<Luke Ordaz - Last Filed: 12/24/17 18:38> - NOTES TO OUTPATIENT PROVIDER Notes to Outpatient Provider: Patient admitted on 12/22 for fall with associated weakness and chest pain. Workup included CXR negative for acute process, CT head showed remote atrophy, Cervical CT showed chronic degenerative changes, EKG showed non-specific ST changes, Brain MRI showed remote lacunar infarct, Carotid doppler showed 40-60% blockage on left, Echo showed EF 60-65% otherwise normal, cardiac enzymes negative. Cardiology was consulted and recommended outpatient stress test. Neurology was consulted and recommended outpatient follow up. Patient recommended for discharge with home health care and home PT/ OT. Orders not resulted at time of discharge: Pending orders 12/25/17 04:00 Complete Blood Count [HEME] AM 0400 Comprehensive Metabolic Panel AM 0400 Date of Encounter: 12/24/17 Time of Encounter: 16:11 - Discharge Diagnosis (1) Fall Priority: Primary Status: Resolved Assessment and Plan: Acute on chronic falls. Last fall today where pt. states she was using her walker and slipped. Denies hitting head. CT of the head/brain today shows no acute intracranial abnormality and diffuse cerebral atrophy with chronic small vessel ischemic disease. CT of the cervical spine without contrast today shows no acute abnormality of the cervical spine and multilevel degenerative changes again noted. Falls/safety precautions. Up with assist only. PT/OT consults ordered to assess pt. for rehabilitation needs for post-discharge planning. 12/23-patient has had recurrent falls recently as an outpatient. She lives at home however I do not feel that she is appropriate to be discharged back home eventually. I will consult physical therapy and occupational therapy for input. We are still in the process of ruling out any further neurological intervention that needs to be done. Her workup for stroke has so far been negative at least for acute stroke. MRI of the brain showed only remote untreated thalamic stroke but no acute strokes Neurology recommended outpatient follow up 12/24-Patient stable for discharge, recommend home health care with home PT/OT Qualifiers: Encounter type: initial encounter Qualified Code(s): W19.XXXA - Unspecified fall, initial encounter (2) Weakness Priority: Secondary Status: Chronic Assessment and Plan: See Fall assessment and plan. (3) Hypothyroid Priority: Secondary Status: Chronic Assessment and Plan: Continue pts. Synthroid. Qualifiers: Hypothyroidism type: acquired Qualified Code(s): E03.9 - Hypothyroidism, unspecified (4) DVT prophylaxis Priority: Secondary Status: Resolved Assessment and Plan: Heparin 5,000 units SQ Q12HR for DVT prophylaxis. Monitor pt. for signs of bleeding. 12/24-Heparin will be discontinued at discharge. (5) HTN (hypertension) Priority: Secondary Status: Chronic Assessment and Plan: Hx of chronic HTN. Monitor pt. and VS. Continue pts. amlodipine. 12/24-will continue home amlodipine at discharge Qualifiers: Hypertension type: essential hypertension Qualified Code(s): I10 - Essential (primary) hypertension (6) HLD (hyperlipidemia) Priority: Secondary Status: Chronic Assessment and Plan: Hx of chronic HLD. Lipid panel in a.m. labs. Pt. does not currently take statin. Consider adding Lipitor or other statin (pt. is allergic to Zocor) based on lipid panel results. 12/24-lipid panel does warrant statin, consider at outpatient follow up. Qualifiers: Hyperlipidemia type: pure hypercholesterolemia Qualified Code(s): E78.00 - Pure hypercholesterolemia, unspecified; E78.0 - Pure hypercholesterolemia (7) Chest pain Priority: Secondary Status: Resolved Assessment and Plan: Acute CP today. Pt. states that she has chronic intermittent CP. Describes pain as centralized pressure. Denies SOB, dizziness, diaphoresis, nausea, or vomiting. Initial troponin <0.03. Will trend. Echocardiogram ordered. Bilateral carotid Dopplers ordered. Continuous cardiac telemetry. Supplemental O2 w/ titration and SpO2 monitoring. EKG today shows sinus rhythm with nonspecific ST and T-wave abnormality. Consider adding stress test in a.m. Will keep pt. NPO @ midnight. Also consider Cardiology consult if troponins and/or Echocardiogram results abnormal. Pt. discussed w/Dr. Lira who agrees w/plan of care. Pt. is high risk for cardiac event and further morbidity based on current weakness, CP , hx of recurrent CP; hx of cardiac risk factors including CHF, CVA, previous PA , HLD, HTN, and TIAs; and familial history of cardiac disease. Observation. 12/23-serial cardiac enzymes were negative. EKG showed only nonspecific ST-T wave abnormalities. I discussed the case with cardiology nurse practitioner who recommended against getting a stress test inpatient however they are working to get an expedited stress test as an outpatient and they will plan for it. they will notify the patient prior to discharge as to what the plans. 12/24-Cardiology recommends outpatient follow up. Patient stable for discharge and outpatient follow up. Qualifiers: Chest pain type: other chest pain Qualified Code(s): R07.89 - Other chest pain; R07.8 - Other chest pain Hospital course: Ms. Bee is a 82 year old female with past medical history of CHF, CVA, HLD, HTN, PA, TIA and Hypothyroidism wo was admitted on 12/22 for fall with associated weakness and chest pain. Workup included CXR negative for acute process, CT head showed remote atrophy, Cervical CT showed chronic degenerative changes, EKG showed non-specific ST changes, Brain MRI showed remote lacunar infarct, Carotid doppler showed 40-60% blockage on left, Echo showed EF 60-65% otherwise normal, cardiac enzymes negative. Cardiology was consulted and recommended outpatient stress test. Neurology was consulted and recommended outpatient follow up. Patient discharged with home health care and home PT/OT. - Time Spent with Patient Total time spent providing and/or coordinating discharge services: - Discharge Medications Home Medications: Cholecalciferol (D-3) [Vitamin D] 1,000 unit PO DAILY 02/02/16 [History] Levothyroxine [Synthroid] 50 mcg PO QAM 02/02/16 [History] Nitroglycerin [Nitrostat] 0.4 mg SL Q5M PRN 02/02/16 [History] Potassium Chloride [K-Tab ER] 10 meq PO DAILY 02/02/16 [History] Amlodipine Besylate 10 mg PO DAILY 04/07/17 [History] Furosemide [Lasix] 40 mg PO DAILY 04/07/17 [History] HYDROcodone/Acet 5/325 mg [[place] 5-325 mg] 1 tab PO Q8H PRN 12/22/17 [History] Allergies/Adverse Reactions: 3 Allergy/AdvReac Type Severity Reaction Status Date / Time atorvastatin [From Lipitor] AdvReac Vomiting Verified 04/18/17 15:37 codeine AdvReac Vomiting Verified 04/18/17 15:37 haloperidol [From Haldol] AdvReac Hallucinati Verified 04/18/17 15:37 ng indomethacin AdvReac Gastrointestinal Verified 04/18/17 15:37 Upset lisinopril [From Prinivil] AdvReac Dizziness Verified 04/18/17 15:37 simvastatin [From Zocor] AdvReac Vomiting Verified 04/18/17 15:37 tramadol AdvReac See Verified 04/18/17 15:37 Comments Date of admission: 12/22/17 17:49 Primary care physician: Sanjay Wagner MD Consults: 12/22/17 18:23 Consult to It Business Process Architect [CONS] Routine Reason for SW Consult: Please assess patient for possible home needs for post -discharge planning. 12/22/17 18:24 Consult to Occupational Therapy [CONS] Routine Comment: Evaluate, develop and implement POC Reason for Consult: Patient reports hx of bilateral leg weakness and falls. Please assess patient for ambulation strength, safety, stability, and possible home assistive/ rehabilitation needs for post-discharge planning. Does patient have active BEDREST order?: No Is patient medically & hemodynamically stable?: Yes Patient assessed for mobility or mobilized this visit?: No 12/22/17 18:25 Consult to Physical Therapy [CONS] Routine Comment: Evaluate, develop and implement POC Reason for Consult: Patient reports hx of bilateral leg weakness and falls. Please assess patient for ambulation strength, safety, stability, and possible home assistive/ rehabilitation needs for post-discharge planning. Does patient have active BEDREST order?: No Is patient medically & hemodynamically stable?: Yes Patient assessed for mobility or mobilized this visit?: No 12/22/17 18:28 Consult to Nutrition [CONS] Routine Comment: Consulting Provider: NUTRITION Reason for Dietary Consult: PO Supplementation 12/22/17 23:39 Consult to Neurology [CONS] Routine Consulting Provider: Neurology [facility] Reason for Consult: Patient has hx of falls w/most recent today. Dizziness and weakness in bilateral LEs. CT unremarkable. MRI shows no acute intracranial abnormality but remote lacunar infarct in the left thalamus and diffuse parenchymal volume loss with moderate chronic white matter microvascular ischemic changes. Pts. daughter would like Neurology to see pt. and explain these results. Call Completed: No 12/23/17 08:07 Consult to Speech Therapy [CONS] Stat Comment: Evaluate, develop and implement POC Reason for Consult: patient MRI stated lunar infact. Patient had minor difficulty swallowing medication this morning. Call Completed: No - Constitutional Vitals: Temp Pulse Resp BP Pulse Ox 98.9 F 69 16 127/76 96 12/24/17 12:16 12/24/17 12:16 12/24/17 12:16 12/24/17 12:16 12/24/17 12:16 General appearance: Present: cooperative, A&O X 3, pleasant, no acute distress, obese, answers questions appropriately Exam: Patient in no acute distress, resting comfortably Alert and oriented x3 Heart regular rate and rhyhm without murmur, rub, or gloria Lungs clear to auscultation without adventitious sounds abdomen soft and non tender legs non edematous, non tender, non erythematous or indurated - Patient Status Disposition: Home, Self-Care Condition: Fair Functional capacity at discharge: uses cane/walker Overall status at discharge: patient is progressing back to baseline - Discharge Instructions Instructions: Fall Prevention (DC), Fall Prevention (GEN), Fall Prevention, [facility] (GEN), Fall Prevention for the Older Adult, [facility] (GEN ) Follow Up With: Amanda Bucio MD [Partnered Physician] - 01/06/18 2:45 pm Sanjay Wagner MD [Primary Care Provider] - 12/31/17 1:30 pm - Diet and Activity Activity: as per physical therapy Diet: low fat, low cholesterol, low salt diet - VTE Documentation of Mechanical Device: Intermittent pneumatic compression device <Adriana Ortega - Last Filed: 12/24/17 22:11> Date of Encounter: 12/24/17 - Discharge Diagnosis (1) Hypothyroid Status: Chronic Qualifiers: Hypothyroidism type: acquired Qualified Code(s): E03.9 - Hypothyroidism, unspecified (2) Weakness Status: Chronic (3) DVT prophylaxis Status: Resolved (4) Fall Status: Resolved Qualifiers: Encounter type: initial encounter Qualified Code(s): W19.XXXA - Unspecified fall, initial encounter (5) HTN (hypertension) Status: Chronic Qualifiers: Hypertension type: essential hypertension Qualified Code(s): I10 - Essential (primary) hypertension (6) HLD (hyperlipidemia) Status: Chronic Qualifiers: Hyperlipidemia type: pure hypercholesterolemia Qualified Code(s): E78.00 - Pure hypercholesterolemia, unspecified; E78.0 - Pure hypercholesterolemia (7) Chest pain Status: Resolved Qualifiers: Chest pain type: other chest pain Qualified Code(s): R07.89 - Other chest pain; R07.8 - Other chest pain Hospital course: Ms. Bee is a 82 year old female - Time Spent with Patient Total time spent providing and/or coordinating discharge services: Date of admission: 12/22/17 17:49 Primary care physician: Sanjay Wagner MD Consults: 12/22/17 18:23 Consult to It Business Process Architect [CONS] Routine Reason for SW Consult: Please assess patient for possible home needs for post -discharge planning. 12/22/17 18:24 Consult to Occupational Therapy [CONS] Routine Comment: Evaluate, develop and implement POC Reason for Consult: Patient reports hx of bilateral leg weakness and falls. Please assess patient for ambulation strength, safety, stability, and possible home assistive/ rehabilitation needs for post-discharge planning. Does patient have active BEDREST order?: No Is patient medically & hemodynamically stable?: Yes Patient assessed for mobility or mobilized this visit?: No 12/22/17 18:25 Consult to Physical Therapy [CONS] Routine Comment: Evaluate, develop and implement POC Reason for Consult: Patient reports hx of bilateral leg weakness and falls. Please assess patient for ambulation strength, safety, stability, and possible home assistive/ rehabilitation needs for post-discharge planning. Does patient have active BEDREST order?: No Is patient medically & hemodynamically stable?: Yes Patient assessed for mobility or mobilized this visit?: No 12/22/17 18:28 Consult to Nutrition [CONS] Routine Comment: Consulting Provider: NUTRITION Reason for Dietary Consult: PO Supplementation 12/22/17 23:39 Consult to Neurology [CONS] Routine Consulting Provider: Neurology [facility] Reason for Consult: Patient has hx of falls w/most recent today. Dizziness and weakness in bilateral LEs. CT unremarkable. MRI shows no acute intracranial abnormality but remote lacunar infarct in the left thalamus and diffuse parenchymal volume loss with moderate chronic white matter microvascular ischemic changes. Pts. daughter would like Neurology to see pt. and explain these results. Call Completed: No 12/23/17 08:07 Consult to Speech Therapy [CONS] Stat Comment: Evaluate, develop and implement POC Reason for Consult: patient MRI stated lunar infact. Patient had minor difficulty swallowing medication this morning. Call Completed: No - Constitutional Vitals: Temp Pulse Resp BP Pulse Ox 99.9 F H 57 16 138/57 95 12/24/17 16:17 12/24/17 16:17 12/24/17 16:17 12/24/17 16:17 12/24/17 16:17 - Attending Attestation I have examined the patient and reviewed the discharge summary obtained and documented by the resident and I personally participated in the padilla components. and formulation of the plan of care. I have discussed the case and management of the patient's care. 82 yo F with resting tremor and concern for parkinsons ( Daughter has Diagnosed PD) , admitted w a fall and ruled out for acute CVA- imaging did reveal old BG infarct Neuro recommends outpatient eval for [facility] SNF advised per OT PT- refused by family. Pt will go home w HHC( albeit family may refuse HHC too)
--- NOTE | 2017-12-24 17:18 | Physician Discharge Referral ---
Home Health/Hosp Referral Info Transfer to: Home Health Attending Provider: Jordan Provider in Charge Post Discharge: PCP - Diagnosis (1) Fall Priority: Primary Status: Resolved (2) Chest pain Priority: Secondary Status: Resolved (3) Weakness Priority: Secondary Status: Chronic (4) Hypothyroid Priority: Secondary Status: Chronic (5) DVT prophylaxis Priority: Secondary Status: Resolved (6) HTN (hypertension) Priority: Secondary Status: Chronic (7) HLD (hyperlipidemia) Priority: Secondary Status: Chronic - Respiratory Orders None Smoking Cessation: Smoking cessation has been advised. For more information, call the [place] Tobacco Quit Line at 9-116-NWKZ-NOW. - Diet/Nutrition Diet/Nutrition Orders: No Added Salt (JONO), Cardiac - Activity Activity Orders: Walker - Services Needed Following services are medically necessary services: Physical Therapy, Occupational Therapy - Transfer Medications Home Medications: Cholecalciferol (D-3) [Vitamin D] 1,000 unit PO DAILY 02/02/16 [History] Levothyroxine [Synthroid] 50 mcg PO QAM 02/02/16 [History] Nitroglycerin [Nitrostat] 0.4 mg SL Q5M PRN 02/02/16 [History] Potassium Chloride [K-Tab ER] 10 meq PO DAILY 02/02/16 [History] Amlodipine Besylate 10 mg PO DAILY 04/07/17 [History] Furosemide [Lasix] 40 mg PO DAILY 04/07/17 [History] HYDROcodone/Acet 5/325 mg [[place] 5-325 mg] 1 tab PO Q8H PRN 12/22/17 [History] Allergies/Adverse Reactions: 3 Allergy/AdvReac Type Severity Reaction Status Date / Time atorvastatin [From Lipitor] AdvReac Vomiting Verified 04/18/17 15:37 codeine AdvReac Vomiting Verified 04/18/17 15:37 haloperidol [From Haldol] AdvReac Hallucinati Verified 04/18/17 15:37 ng indomethacin AdvReac Gastrointestinal Verified 04/18/17 15:37 Upset lisinopril [From Prinivil] AdvReac Dizziness Verified 04/18/17 15:37 simvastatin [From Zocor] AdvReac Vomiting Verified 04/18/17 15:37 tramadol AdvReac See Verified 04/18/17 15:37 Comments Certification: Further, I certify that my clinical findings support that this patient is homebound (i.e. absences from home require considerable and taxing effort and are for medical reasons or synagogue services or infrequently or short duration when for other reasons) because: Homebound Reason: Patient requires assistance of a person or device to safely leave home Attestation: My signature below is to certify that this patient is under my care and that I, or nurse practitioner, or a physician's expanded duty dental assistant working with me, has a face-to -face encounter with this patient.
--- NOTE | 2017-12-24 18:58 | Electrocardiograph Report ---
[place] [id number] Test Date: 2017-12-22 Pat Name: Cassy Bee Department: 102 Room: 3B54 Gender: F Stamping Operator: Ct : 1935 Requested By: Aparna Ortega Order Number: [id number] Reading MD: Bong Wren Measurements Intervals [place] Rate: 66 P: 94 WY: 155 QRS: 34 QRSD: 84 T: 75 QT: 318 QTc: 332 Interpretive Statements SINUS RHYTHM Electronically Signed On 12-24-2017 18:56:49 EDT by Bong Wren
== END 2017-12-24 17:37 | disposition home or self-care (01) ==
LOC: EMEROO 13:27 → 3BNU 13:27 → SUATTDRO 17:49 → 3BNU 18:16
PROVIDERS: ADMIT Internal Medicine Nephrology; ATTEND Internal Medicine